=== PATIENT | female | born 1960 | race Caucasian/White ===

== ENCOUNTER 2022-05-22 11:16 | Outpatient (CLI) | payer OTHER, SELFPAY ==
[2022-05-22 21:33] LABS: Albumin* 4.1 g/dL (3.3-5.0); Chloride* 107 mmol/L (96-114)
[2022-05-22 21:34] LABS: Potassium* 4.3 mmol/L (3.6-5.1); Sodium* 138 mmol/L (135-149)
[2022-05-22 21:36] LABS: Alkaline Phosphatase* 73 U/L (40-150); Aspartate Amino Transferase* 25 U/L (12-35); Bilirubin Total* 0.4 mg/dL (0.1-1.5); Blood Urea Nitrogen* 11 mg/dL (7-30); Carbon Dioxide* 24 mmol/L (20-32); Cholesterol* 221 mg/dL (90-199); Creatinine* 0.8 mg/dL (0.5-1.5); Estimated Glomerular Filt Rate 83 ml/min; Glucose* 98 mg/dL (60-115); Total Protein* 6.6 g/dL (6.0-8.3)
[2022-05-22 21:37] LABS: Alanine Aminotransferase* 11 U/L (4-35); HDL Cholesterol* 54 mg/dL (>=50); LDL Cholesterol Calculated 145 mg/dL (<100); Triglycerides* 112 mg/dL (40-149)
[2022-05-22 21:52] LABS: Vitamin D 25 Hydroxy* 49 ng/mL (30-80)
== END 2022-05-22 11:17 | disposition home or self-care (01) ==
PROVIDERS: PCP Family Medicine; Visit Provider Family Medicine
DX: E78.00 Pure hypercholesterolemia, unspecified (principal); R53.83 Other fatigue; F41.9 Anxiety disorder, unspecified; L40.9 Psoriasis, unspecified; G35 Multiple sclerosis
CPT/HCPCS: 80053; 80061; 82306; 84443

== ENCOUNTER 2022-06-26 10:23 | Emergency (ER) | payer OTHER, SELFPAY ==
[2022-06-26] VITALS (19 sets, daily range): BP systolic 91–109; BP diastolic 55–74; PULSE 66–83; RESP 22; TEMP 36.8; O2SAT 84–99
[2022-06-26 11:20] LABS: Lactate* 1.9 mmol/L (0.5-1.9)
[2022-06-26] MEDS: 0.9 % SODIUM CHLORIDE 1000 ml 1,000 ML IV ×2 (11:28→12:42)
[2022-06-26 11:32] LABS: Basophils Percent Auto 0.3 % (0.0-3.0); Eosinophils Percent Auto 0.2 % (0.0-7.0); Hematocrit 43.7 % (33.0-51.0); Hemoglobin* 14.5 gm/dL (12.0-16.0); Immature Granulocytes Abs Auto 0.03 K/uL (0.00-0.30); Lymphocytes Percent Auto 4.8 % (20-44); Mean Corpuscular HGB Conc 33 gm/dL (32-36); Mean Corpuscular Hemoglobin 30 pg (26-34); Mean Corpuscular Volume 91 fL (80-100); Monocytes Percent Auto 0.7 % (0.0-11.0); Neutrophils Percent Auto 93.7 % (42.0-72.0); Platelet Count* 203 K/uL (140-440); RDW Coefficient of Variation % 13.2 % (11.5-15.5); White Blood Count* 11.43 K/uL (4.50-11.00)
[2022-06-26 11:37] LABS: Slide Review Reflex No
[2022-06-26 11:39] LABS: Chloride* 105 mmol/L (96-114)
[2022-06-26 11:39] LABS: Albumin* 4.4 g/dL (3.3-5.0)
[2022-06-26 11:40] LABS: Potassium* 3.7 mmol/L (3.6-5.1); Sodium* 138 mmol/L (135-149)
[2022-06-26 11:42] LABS: Alanine Aminotransferase* 12 U/L (4-35); Alkaline Phosphatase* 82 U/L (40-150); Aspartate Amino Transferase* 28 U/L (12-35); Bilirubin Direct* 0.2 mg/dL (0.0-0.5); Bilirubin Total* 0.7 mg/dL (0.1-1.5)
[2022-06-26 11:43] LABS: Blood Urea Nitrogen* 14 mg/dL (7-30); Carbon Dioxide* 25 mmol/L (20-32); Creatinine* 0.8 mg/dL (0.5-1.5); Estimated Glomerular Filt Rate 83 ml/min; Glucose* 111 mg/dL (60-115)
[2022-06-26 11:44] LABS: Calcium* 9.5 mg/dL (8.4-10.6)
[2022-06-26] MEDS: KETOROLAC 15 MG/ML inj IVP (12:30)
[2022-06-26] MEDS: ONDANSETRON 2 MG/ML inj 4 MG IVP (12:30)
--- NOTE | 2022-06-26 12:47 | ED_ITS ---
HPI - Abdominal Pain General Date Seen: 06/26/22 Chief Complaint: Unspecified Complaint, Adult Stated Complaint: Short of breath, muscle aches, fever Time Seen by Provider: 06/26/22 11:02 Source: patient Mode of arrival: ambulatory Limitations: no limitations History of Present Illness HPI narrative: Patient is a very nice 61-year-old female presents here with shakes, chills, and feeling unwell, she noted to the nurse that she had some shortness of breath although I do not notice that she does not tell me that. He does have some dysuria and frequency of urination also, some mild discomfort in her back. MD elicited complaint: abdominal pain and flank pain Pertinent past history: past UTI Onset (ago): hour(s) Pain Consistency: constant Location: L flank, R flank and suprapubic Severity: moderate Quality: aching and fullness Radiation: none Migration to: no migration Exacerbating factors: movement Relieving factors: nothing Associated symptoms: dysuria Treatments prior to arrival: other Related Data Home Medications Medication Instructions Recorded Confirmed budesonide 0.5 mg/2 mL suspension 0.5 mg inhalation QDAY 05/22/22 05/22/22 for nebulization Previous Rx's Medication Instructions Recorded alprazolam 0.25 mg tablet (Xanax) 0.25 mg PO .QHS PRN sleep #60 tabs 05/22/22 clobetasol 0.05 % scalp solution 1 applic topical QDAY 2 weeks #50 05/22/22 mL paroxetine HCl 30 mg tablet (Paxil) 30 mg PO QDAY #90 tabs 05/22/22 Allergies Allergy/AdvReac Type Severity Reaction Status Date / Time prochlorperazine Allergy Irritable Verified 06/26/22 14:50 Sulfa (Sulfonamide Allergy Verified 06/26/22 14:50 Antibiotics) Review of Systems Status of ROS Reports: 10 or more systems reviewed and unremarkable except as noted in History and below PFSH PFSH Medical History Psoriasis Social History Narrative: Smoker Smoking Status: Current every day smoker What tobacco products do you use: cigarettes Do you use any of these nicotine containing products: None Second hand tobacco smoke exposure: No How often do you have a drink containing alcohol: monthly or less How many standard drinks containing alcohol do you have on a typical day: 1 or 2 How often do you have six or more drinks on one occasion: Never AUDIT-C Alcohol total score: 1 Non-prescribed substance use: denies use Little interest or pleasure in doing things: several days Feeling down, depressed, or hopeless: several days Exam Narrative: Exam Narrative: Patient is seen with nurse present, her speaking to me normally she appears chilled, with the shaking, pupils equal round react to light oropharynx normal neck is supple chest clear heart sounds are normal her abdomen is soft there is no guarding pressure immediately she has mild CVA tenderness noted. No organomegaly, bowel sounds are normal, she moves all extremities independently well, no redness or rashes. Const: Vital Signs, click to edit/add: Vital Signs - 24 hr 06/26/22 10:48 06/26/22 11:48 06/26/22 11:49 Temperature 98.2 F Pulse Rate 73 73 Pulse Rate [Pulse Oximeter] 77 Respiratory Rate 22 Blood Pressure 109/56 L Blood Pressure [Le ft Upper Arm] 91/58 L Pulse Oximetry 97 96 [facility] 06/26/22 12:00 06/26/22 12:01 06/26/22 12:02 Temperature Pulse Rate 75 83 76 Pulse Rate [Pulse Oximeter] Respiratory Rate Blood Pressure 99/55 L Blood Pressure [Le ft Upper Arm] Pulse Oximetry 98 99 99 [facility] 06/26/22 12:15 06/26/22 12:16 06/26/22 12:31 Temperature Pulse Rate 80 76 79 Pulse Rate [Pulse Oximeter] Respiratory Rate Blood Pressure 98/65 108/61 Blood Pressure [Le ft Upper Arm] Pulse Oximetry 94 84 L 97 [facility] 06/26/22 12:32 06/26/22 12:47 06/26/22 12:48 Temperature Pulse Rate 74 71 73 Pulse Rate [Pulse Oximeter] Respiratory Rate Blood Pressure 99/57 L Blood Pressure [Le ft Upper Arm] Pulse Oximetry 98 95 95 [facility] 06/26/22 13:01 06/26/22 13:02 06/26/22 13:16 Temperature Pulse Rate 72 75 74 Pulse Rate [Pulse Oximeter] Respiratory Rate Blood Pressure 106/60 101/62 Blood Pressure [Le ft Upper Arm] Pulse Oximetry 96 94 95 Oxygen Delivery Me thod 06/26/22 13:17 06/26/22 13:30 06/26/22 13:34 Temperature Pulse Rate 77 66 71 Pulse Rate [Pulse Oximeter] Respiratory Rate Blood Pressure Blood Pressure [Le ft Upper Arm] Pulse Oximetry 98 95 94 Oxygen Delivery Me thod 06/26/22 17:00 Temperature Pulse Rate Pulse Rate [Pulse Oximeter] Respiratory Rate Blood Pressure Blood Pressure [Le ft Upper Arm] 106/74 Pulse Oximetry Oxygen Delivery Me thod Documenting provider has reviewed patient's vital signs: yes Course Course Hospital Course: Discussed with the patient, given the shake she was having, we will do a chest abdomen and pelvis, rule out any acute findings, causing her issues. This was read by Radiology is negative, I also viewed it did not see any acute findings. She did improve here with IV fluids, is feeling much improved. I wonder if there is an element of dehydration. She does tell me that she gets issues with sinusitis every few months, and he is requesting a prescription for Keflex which works well for her, as she notes that she does have that bad taste in the back of her throat. I do not think this is unreasonable, I will give her prescr iption for Keflex. Blood cultures and they grow positive we can call her. Vital Signs Vital signs: Initial Vital Signs Temperature 98.2 F 06/26/22 10:48 Temperature Source Oral 06/26/22 10:48 Pulse Rate 77 06/26/22 10:48 Pulse Rhythm 06/26/22 10:48 Respiratory Rate 22 06/26/22 10:48 Blood Pressure 91/58 L 06/26/22 10:48 Blood Pressure Mean 69 06/26/22 10:48 Blood Pressure Position Sitting 06/26/22 10:48 Pulse Oximetry 97 06/26/22 10:48 Oxygen Delivery Method 06/26/22 10:48 Vital Signs Temperature 98.2 F 06/26/22 10:48 Pulse Rate 77 06/26/22 10:48 Respiratory Rate 22 06/26/22 10:48 Blood Pressure 91/58 L 06/26/22 10:48 Pulse Oximetry 97 06/26/22 10:48 Oxygen Delivery Method 06/26/22 10:48 Temperature 98.2 F 06/26/22 10:48 Pulse Rate 71 06/26/22 13:34 Respiratory Rate 22 06/26/22 10:48 Blood Pressure 106/74 06/26/22 17:00 Pulse Oximetry 94 06/26/22 13:34 Oxygen Delivery Method 06/26/22 10:48 MDM - Abdominal Pain MDM Narrative Medical decision making narrative: During the evaluation of this patient I considered multiple differential diagnosis including life-threatening differentials which are appendicitis, aortic aneurysm, mesenteric ischemia, bowel perforation, ectopic , volvulus and bowel obstruction, other differential diagnosis include but are not limited to inflammatory bowel disease, cholecystitis, pancreatitis, hepatitis, gastritis, GERD, diverticulitis, peptic ulcer disease, pyelonephritis/UTI, renal colic/stone, pelvic inflammatory disease, cervicitis, endometritis, intrauterine , dysfunctional uterine bleeding, ovarian cyst/torsion, spontaneous as well as other etiologies Lab Data Labs: Lab Results 06/26/22 06/26/22 06/26/22 Range/Units 10:55 11:11 11:11 WBC 11.43 H (4.50-11.00) K/uL RBC 4.80 (4.00-5.20) m/uL Hgb 14.5 (12.0-16.0) gm/dL Hct 43.7 (33.0-51.0) % MCV 91 (80-100) fL MCH 30 (26-34) pg MCHC 33 (32-36) gm/dL RDW Coeff of Mauricio 13.2 (11.5-15.5) % Plt Count 203 (140-440) K/uL Neut % (Auto) 93.7 H (42.0-72.0) % Lymph % (Auto) 4.8 L (20-44) % [place] % (Auto) 0.7 (0.0-11.0) % Eos % (Auto) 0.2 (0.0-7.0) % Baso % (Auto) 0.3 (0.0-3.0) % Neut # (Auto) 10.70 H (1.7-7.0) K/uL Lymph # (Auto) 0.50 L (0.90-2.90) K/uL [place] # (Auto) 0.10 (0.00-0.90) K/UL Eos # (Auto) 0.00 (0.00-0.50) K/uL Baso # (Auto) 0.00 (0.00-0.30) K/uL Abs Immat Gran (auto) 0.03 (0.00-0.30) K/uL Sodium 138 (135-149) mmol/L Potassium 3.7 (3.6-5.1) mmol/L Chloride 105 (96-114) mmol/L Carbon Dioxide 25 (20-32) mmol/L BUN 14 (7-30) mg/dL Creatinine 0.8 (0.5-1.5) mg/dL Estimated GFR 83 ml/min Glucose 111 (60-115) mg/dL Lactate (0.5-1.9) mmol/L Calcium 9.5 (8.4-10.6) mg/dL Total Bilirubin (0.1-1.5) mg/dL Direct Bilirubin (0.0-0.5) mg/dL AST (12-35) U/L ALT (4-35) U/L Alkaline Phosphatase (40-150) U/L Troponin I (0.01-0.04) ng/mL Total Protein (6.0-8.3) g/dL Albumin (3.3-5.0) g/dL Urine Color (Yellow) Urine Appearance (Clear) Urine pH (5.0-8.5) Ur Specific [place] (1.000-1.030) Urine Protein (Negative) Urine Glucose (UA) (Negative) Urine Ketones (Negative) Urine Blood (Negative) Urine Nitrite (Negative) Urine Bilirubin (Negative) Urine Urobilinogen (0.2-1.0) Ur Leukocyte Esterase (Negative) Urine RBC (0-2) Urine WBC (0-5) Ur Squamous Epith Cells (None-Few) Urine Bacteria (None) SARS-CoV-2 (PCR) Cancelled Influenza Type A (PCR) Cancelled Influenza Type B (PCR) Cancelled RSV (PCR) (Negative) 06/26/22 06/26/22 06/26/22 Range/Units 11:11 11:11 11:22 WBC (4.50-11.00) K/uL RBC (4.00-5.20) m/uL Hgb (12.0-16.0) gm/dL Hct (33.0-51.0) % MCV (80-100) fL MCH (26-34) pg MCHC (32-36) gm/dL RDW Coeff of Mauricio (11.5-15.5) % Plt Count (140-440) K/uL Neut % (Auto) (42.0-72.0) % Lymph % (Auto) (20-44) % [place] % (Auto) (0.0-11.0) % Eos % (Auto) (0.0-7.0) % Baso % (Auto) (0.0-3.0) % Neut # (Auto) (1.7-7.0) K/uL Lymph # (Auto) (0.90-2.90) K/uL [place] # (Auto) (0.00-0.90) K/UL Eos # (Auto) (0.00-0.50) K/uL Baso # (Auto) (0.00-0.30) K/uL Abs Immat Gran (auto) (0.00-0.30) K/uL Sodium (135-149) mmol/L Potassium (3.6-5.1) mmol/L Chloride (96-114) mmol/L Carbon Dioxide (20-32) mmol/L BUN (7-30) mg/dL Creatinine (0.5-1.5) mg/dL Estimated GFR ml/min Glucose (60-115) mg/dL Lactate 1.9 (0.5-1.9) mmol/L Calcium (8.4-10.6) mg/dL Total Bilirubin 0.7 (0.1-1.5) mg/dL Direct Bilirubin 0.2 (0.0-0.5) mg/dL AST 28 (12-35) U/L ALT 12 (4-35) U/L Alkaline Phosphatase 82 (40-150) U/L Troponin I < 0.01 L (0.01-0.04) ng/mL Total Protein 7.0 (6.0-8.3) g/dL Albumin 4.4 (3.3-5.0) g/dL Urine Color (Yellow) Urine Appearance (Clear) Urine pH (5.0-8.5) Ur Specific [place] (1.000-1.030) Urine Protein (Negative) Urine Glucose (UA) (Negative) Urine Ketones (Negative) Urine Blood (Negative) Urine Nitrite (Negative) Urine Bilirubin (Negative) Urine Urobilinogen (0.2-1.0) Ur Leukocyte Esterase (Negative) Urine RBC (0-2) Urine WBC (0-5) Ur Squamous Epith Cells (None-Few) Urine Bacteria (None) SARS-CoV-2 (PCR) Influenza Type A (PCR) Influenza Type B (PCR) RSV (PCR) (Negative) 06/26/22 06/26/22 Range/Units 11:22 12:30 WBC (4.50-11.00) K/uL RBC (4.00-5.20) m/uL Hgb (12.0-16.0) gm/dL Hct (33.0-51.0) % MCV (80-100) fL MCH (26-34) pg MCHC (32-36) gm/dL RDW Coeff of Mauricio (11.5-15.5) % Plt Count (140-440) K/uL Neut % (Auto) (42.0-72.0) % Lymph % (Auto) (20-44) % [place] % (Auto) (0.0-11.0) % Eos % (Auto) (0.0-7.0) % Baso % (Auto) (0.0-3.0) % Neut # (Auto) (1.7-7.0) K/uL Lymph # (Auto) (0.90-2.90) K/uL [place] # (Auto) (0.00-0.90) K/UL Eos # (Auto) (0.00-0.50) K/uL Baso # (Auto) (0.00-0.30) K/uL Abs Immat Gran (auto) (0.00-0.30) K/uL Sodium (135-149) mmol/L Potassium (3.6-5.1) mmol/L Chloride (96-114) mmol/L Carbon Dioxide (20-32) mmol/L BUN (7-30) mg/dL Creatinine (0.5-1.5) mg/dL Estimated GFR ml/min Glucose (60-115) mg/dL Lactate (0.5-1.9) mmol/L Calcium (8.4-10.6) mg/dL Total Bilirubin (0.1-1.5) mg/dL Direct Bilirubin (0.0-0.5) mg/dL AST (12-35) U/L ALT (4-35) U/L Alkaline Phosphatase (40-150) U/L Troponin I (0.01-0.04) ng/mL Total Protein (6.0-8.3) g/dL Albumin (3.3-5.0) g/dL Urine Color Yellow (Yellow) Urine Appearance Clear (Clear) Urine pH 5.5 (5.0-8.5) Ur Specific [place] 1.025 (1.000-1.030) Urine Protein Negative (Negative) Urine Glucose (UA) Negative (Negative) Urine Ketones Negative (Negative) Urine Blood Negative (Negative) Urine Nitrite Negative (Negative) Urine Bilirubin Negative (Negative) Urine Urobilinogen 0.2 (0.2-1.0) Ur Leukocyte Esterase Negative (Negative) Urine RBC 0-2 (0-2) Urine WBC 0-2 (0-5) Ur Squamous Epith Cells Few (None-Few) Urine Bacteria Few A (None) SARS-CoV-2 (PCR) Negative SARS-CoV-2 Influenza Type A (PCR) Negative PCR FLU A Influenza Type B (PCR) Negative PCR FLU B RSV (PCR) Negative PCR RSV (Negative) Discharge Plan Discharge Clinical Impression: Acute dehydration, Sinusitis Patient Disposition: Home w/ Parent or Adult Condition: Improved Instructions: Dehydration (ED), Rhinosinusitis (DC) Additional Instructions: Home rest follow-up with ENT as needed, return here if increasing symptoms worsening. Increasing fever nausea vomiting abdominal pain. Prescriptions: No Action budesonide 0.5 mg/2 mL suspension for nebulization 0.5 mg inhalation QDAY paroxetine HCl [Paxil] 30 mg tablet 30 mg PO QDAY Qty: 90 2RF alprazolam [Xanax] 0.25 mg tablet 0.25 mg PO .QHS PRN (Reason: sleep) Qty: 60 1RF Rx Instructions: 1-2 tabs po QHS, PRN clobetasol 0.05 % solution 1 applic topical QDAY 14 Days Qty: 50 1RF Follow Up/Referrals: Max Maxwell MD [Primary Care Provider] - Stand Alone Forms: [facility] Info Instructions
[2022-06-26 13:00] LABS: Appearance Urine Clear (Clear); Bilirubin Urine Negative (Negative); Blood Urine Negative (Negative); Color Urine Yellow (Yellow); Glucose Urine Negative (Negative); Ketones Urine Negative (Negative); Leukocyte Esterase Urine Negative (Negative); Nitrite Urine Negative (Negative); Protein Urine Negative (Negative); Specific Gravity Urine 1.025 (1.000-1.030); Urobilinogen Urine 0.2 (0.2-1.0); pH Urine 5.5 (5.0-8.5)
[2022-06-26 13:14] LABS: Bacteria Urine Few; RBC Urine 0-2 (0-2); Squamous Epithelial Cell Urine Few (None-Few); WBC Urine 0-2 (0-5)
--- NOTE | 2022-06-26 13:36 | CRLHL7_ITS ---
For Patients: As a result of the Cures Act, medical imaging exams and procedure reports are released immediately into your electronic medical record. You may view this report before your referring provider. If you have questions, please contact your health care provider. INDICATION: Shortness of breath, muscle aches, fever. TECHNIQUE: Chest radiograph, 2 views. COMPARISON: None. FINDINGS: Cardiovascular and mediastinum: The heart size and vasculature are normal in caliber and appearance. Lungs and pleural space: Lungs are clear. No signs of infiltrate or mass. No signs of pleural effusion. No pneumothorax. Bones and soft tissues: Mild degenerative changes of the osseous structures. IMPRESSION: No acute cardiopulmonary abnormality. Dictated by Simon Ortiz MD @ 06/26/2022 2:21:42 PM (Electronically Signed)
--- NOTE | 2022-06-26 14:39 | CRLHL7_ITS ---
For Patients: As a result of the Century Cures Act, medical imaging exams and procedure reports are released immediately into your electronic medical record. You may view this report before your referring provider. If you have questions, please contact your health care provider. INDICATION: Back pain. Fever. Chills. COMPARISON: There are no prior chest CTs. Abdomen CT reviewed dated October 16, 2021. TECHNIQUE: CT examination of the chest, abdomen and pelvis was performed following the uneventful intravenous administration of 95 cc of Isovue 370. Thin section axial images were obtained from the thoracic inlet through the pubic symphysis. Oral contrast was not administered. Sagittal and coronal reformatted imaging was performed. The chest portion of the study was performed as a pulmonary arterial angiogram. Please note that all CT scans at this facility use dose modulation, iterative reconstruction, and/or weight-based dosing when appropriate to reduce radiation dose to as low as reasonably achievable. FINDINGS: CHEST: There is no mediastinal or hilar or mass. There is no pericardial effusion. The lungs show a few scattered nodules that are calcified consistent with granulomas. Minimal basilar atelectasis. No focal consolidation, infiltrate or mass. No pleural effusion or pneumothorax. AORTA AND PULMONARY ARTERY DISTRIBUTION: There is no indication of acute pulmonary embolus or thoracic aortic dissection. ABDOMEN AND PELVIS: LIVER/BILIARY SYSTEM:Hepatic steatosis. Scattered low-density lesions likely all cysts. The smaller lesions are strictly speaking indeterminate. Similar to the prior study. No biliary ductal dilatation. Normal appearing gallbladder ADRENALS: Normal KIDNEYS, URETERS and BLADDER:The kidneys appear normal. No visible mass, calculus or hydronephrosis. The ureters and bladder as visualized appear normal. SPLEEN:Normal appearance. PANCREAS: Appears normal. RETROPERITONEUM and MESENTERY: There is no mass, adenopathy or aortic aneurysm. Atherosclerotic vascular calcification GASTROINTESTINAL SYSTEM: Mildly thickened loops of small bowel especially jejunum. No indication of obstruction. This is usually inflammatory representing an enteritis. There is scattered diverticulosis but no diverticulitis. No large bowel obstruction. PELVIS: No mass, adenopathy or free fluid. OSSEOUS STRUCTURES and ABDOMINAL WALL: There is an age-appropriate appearance of the osseous structures.No destructive process of bone. OTHER: No free fluid or free air. IMPRESSION: 1. CHEST: Calcified granulomas. Minimal basilar atelectasis. No significant appearing lung findings. Normal pleural spaces. 2. AORTA AND PULMONARY ARTERY DISTRIBUTION: No evidence of aortic dissection and no indication of acute pulmonary embolus jejunum. No indication of obstruction. This probably represents an enteritis. Otherwise, no acute appearing findings in the abdomen and pelvis. 4. OSSEOUS STRUCTURES: Age-appropriate appearance. No specific visible cause for acute back pain Please note that all CT scans at this facility use dose modulation, iterative reconstruction, and/or weight-based dosing when appropriate to reduce radiation dose to as low as reasonably achievable. Dictated by Mahesh Crenshaw MD @ 06/26/2022 3:29:58 PM (Electronically Signed)
[2022-06-26 15:27] LABS: Troponin I* < 0.01 ng/mL (0.01-0.04)
[2022-06-26 16:24] LABS: PCR FLU A Negative PCR FLU A (Negative); PCR FLU B Negative PCR FLU B (Negative); PCR RSV Negative PCR RSV (Negative); SARS PCR* Negative SARS-CoV-2 (Negative)
--- NOTE | 2022-06-27 03:06 | ED.NURSE ---
call from lab, 10/17 pos blood culture bottle, cultures to follow. pt started on keflex, ok to wait for sensitivities at this point per Dr. Looney.
--- NOTE | 2022-06-27 14:50 | ED.NURSE ---
[facility] pharmacy called to verify MD name on Keflex rx
--- NOTE | 2022-06-28 08:32 | W.ED.CHARTNO ---
ED Chart Note Chart Note Details Date: 06/28/22 Details: I received at 8:00 a.m. this morning a blood culture report, the gene twice on Saturday, is growing Gram-negative rods, I left a message on her phone as no one picked up, and then called her contact that is listed, that she is still feeling sick, with fevers up to 104, I asked him to either call the ambulance or hat bring her here to the emergency room in [place] so we can reassess her, and get her on antibiotics. She is growing Gram-negative rods, which is most commonly E coli.
== END 2022-06-26 17:00 | disposition home or self-care (01) ==
PROVIDERS: Emergency Provider Family Medicine; PCP Family Medicine
DX: Z53.8 Procedure and treatment not carried out for other reasons (principal)
CPT/HCPCS: 99281; 36415; 71046; 71260; 74177; 80048; 80076; 81001; 83605; 84484; 85025; 87040; 87086; 87186; 87502; 87631; 87634; 87635; 99284; J1885; J2405; J7030; Q9967

== ENCOUNTER 2022-06-28 09:31 | Inpatient (IN) | payer OTHER, SELFPAY ==
[2022-06-28] VITALS (21 sets, daily range): BP systolic 88–104; BP diastolic 42–66; PULSE 56–71; RESP 18–20; TEMP 36.1–37.6; O2SAT 92–98; BMI 24.0
--- NOTE | 2022-06-28 10:01 | ED_ITS ---
HPI - Weakness General Time Seen by Provider: 10:01 Date Seen: 06/28/22 Chief complaint: Weakness Stated complaint: Positive blood cultures Time Seen by Provider: 06/28/22 09:33 Source: patient Mode of arrival: ambulatory Limitations: no limitations History of Present Illness HPI Narrative: Patient is a 62-year-old female who I saw 48 hours ago in the emergency room please see my previous note, we discharged her home, in her blood cultures grew Gram-negative rods, on flagging today. I called her house, left a message then called her contact, who brought her here to the emergency room to be seen. She continues to have diaphoresis, sweating, and temperatures up to 102.4. She describes some lower suprapubic discomfort, with this also and some just overall abdominal discomfort she says. She has had no diarrhea with this, she has had dysuria and frequency of urination. Interestingly her urinalysis was negative, when I saw her and grew mixed isabell. She tells me she has had a slight headache associated with this, some vomiting also. No sore throat, slight cough associated with this. But tells me she does smoke. She did has some neck discomfort but this is gone away in the last 24 hours. No history of any rash, no recent travel, no tick bites, or any other possible issues. No real past history of any urinary tract infection she does have a history of diverticulitis, we did scan her on her last visit and this did not show anything. MD Complaint: generalized weakness Onset (ago): day(s) Related Data Home Medications Medication Instructions Recorded Confirmed budesonide 0.5 mg/2 mL suspension 0.5 mg inhalation QDAY 05/22/22 05/22/22 for nebulization Previous Rx's Medication Instructions Recorded alprazolam 0.25 mg tablet (Xanax) 0.25 mg PO .QHS PRN sleep #60 tabs 05/22/22 clobetasol 0.05 % scalp solution 1 applic topical QDAY 2 weeks #50 05/22/22 mL paroxetine HCl 30 mg tablet (Paxil) 30 mg PO QDAY #90 tabs 05/22/22 Allergies Allergy/AdvReac Type Severity Reaction Status Date / Time prochlorperazine Allergy Irritable Verified 06/28/22 09:39 Sulfa (Sulfonamide Allergy Verified 06/28/22 09:39 Antibiotics) Review of Systems Status of ROS: Reports: 10 or more systems reviewed and unremarkable except as noted in History and below [facility] Medical History Psoriasis Social History Narrative: Smoker Smoking Status: Current every day smoker What tobacco products do you use: cigarettes Do you use any of these nicotine containing products: None Second hand tobacco smoke exposure: No How often do you have a drink containing alcohol: monthly or less How many standard drinks containing alcohol do you have on a typical day: 1 or 2 How often do you have six or more drinks on one occasion: Never AUDIT-C Alcohol total score: 1 Non-prescribed substance use: denies use Little interest or pleasure in doing things: several days Feeling down, depressed, or hopeless: several days service: No Exam Narrative: Exam Narrative: Patient is seen and assessed she is mentating normally she is nontoxic, appears a little bit sweaty, with normal vital signs. She is seen with my nurse drawing labs. Her pupils are equal round reactive to light there is no scleral icterus she tracks normally with absence of nystagmus pin, her TMs are normal, her oropharynx is normal, nasal mucosa is normal, her neck is supple full range of motion is elicited, with no meningismus. There is no lymphadenopathy anterior posterior chains of her neck, her JVP is flat her carotid upstrokes are equal, cranial nerves 3-12 are normal. Chest is good air entry bilaterally she has a couple small wheezes noted on the left greater than the right. There is no signs or spiral fei distress, no dullness to percussion, and no splinting. Easy respirations are noted. Heart sounds no clicks murmurs or gallops noted. S1-S2 are normal. Her abdomen, so some mild fullness and tenderness in her lower abdominal region left greater than right, and over the suprapubic area. No organomegaly is noted her bowel sounds are quiet, there is no peritoneal signs. She did have some CVA tenderness but she tells me that is from my cold hands. Extremities all appear normal, neurologically intact normal power in upper lower extremities, and proximal distal d[place] assessed and normal sensations normal, pulses are normal there is no edema, skin reveals no rashes. Const: Vital Signs, click to edit/add: Vital Signs - 24 hr 06/28/22 09:39 06/28/22 10:29 06/28/22 11:01 Temperature 96.9 F L Pulse Rate 68 Pulse Rate [Pulse Oximeter] 63 69 Respiratory Rate 18 20 Blood Pressure 90/42 L Blood Pressure [Ri ght Upper Arm] 104/45 L 103/56 L Pulse Oximetry 98 98 95 Oxygen Delivery Me thod Room Air Room Air 06/28/22 11:02 06/28/22 11:33 06/28/22 11:38 Temperature Pulse Rate 69 65 71 Pulse Rate [Pulse Oximeter] Respiratory Rate Blood Pressure 88/45 L Blood Pressure [Ri ght Upper Arm] Pulse Oximetry 95 94 96 Oxygen Delivery Me thod 06/28/22 11:40 Temperature Pulse Rate 71 Pulse Rate [Pulse Oximeter] Respiratory Rate Blood Pressure 91/53 L Blood Pressure [Ri ght Upper Arm] Pulse Oximetry 97 Oxygen Delivery Me thod Documenting provider has reviewed patient's vital signs: yes Course Course Hospital Course: I discussed the patient with the hospitalist Dr. Hensley, she agreed to med the hospital the diagnosis of positive blood cultures, sepsis, fevers chills, I suspect that this is a urosepsis type picture. Given the above presentation, I did review the previous trip to the ER, repeated the cultures, of her blood, and got a good midstream urine. Zosyn should give us adequate coverage, start with. To we get specific sensitivities. Vital Signs Vital signs: Initial Vital Signs Temperature 96.9 F L 06/28/22 09:39 Temperature Source Temporal Artery Scan 06/28/22 09:39 Pulse Rate 63 06/28/22 09:39 Pulse Rhythm 06/28/22 09:39 Respiratory Rate 18 06/28/22 09:39 Blood Pressure 104/45 L 06/28/22 09:39 Blood Pressure Mean 64 06/28/22 09:39 Pulse Oximetry 98 06/28/22 09:39 Oxygen Delivery Method 06/28/22 09:39 Vital Signs Temperature 96.9 F L 06/28/22 09:39 Pulse Rate 63 06/28/22 09:39 Respiratory Rate 18 06/28/22 09:39 Blood Pressure 104/45 L 06/28/22 09:39 Pulse Oximetry 98 06/28/22 09:39 Oxygen Delivery Method 06/28/22 09:39 Temperature 96.9 F L 06/28/22 09:39 Pulse Rate 71 06/28/22 11:40 Respiratory Rate 20 06/28/22 10:29 Blood Pressure 91/53 L 06/28/22 11:40 Pulse Oximetry 97 06/28/22 11:40 Oxygen Delivery Method 06/28/22 10:29 MDM - Weakness MDM Narrative Medical decision making narrative: Life-threatening differential diagnosis is include meningitis, encephalitis, pneumonia, intra-abdominal infection, bacteremia, other differential diagnosis include but are not limited to viral upper respiratory tract infection, strep, urinary tract infection, skin infection, osteomyelitis, influenza, fungal infections, diskitis, epidural abscess, or fever of unknown origin. Given the above findings in the setting of a positive blood culture growing Gram-negative rods we will do further blood cultures I will do labs give her some fluids give her some pain medication nausea medication and start her on Zosyn which is good broad-spectrum coverage for likely the cause which is E coli. I did explain to her that we keep people in hospital for this. I will also do a chest x-ray but I will hold off on repeating her CT at this point. Medical Records Attestation: I reviewed the patient's medical records. Lab Data Attestation: I reviewed the patient's lab results. Labs: Lab Results 06/28/22 06/28/22 06/28/22 Range/Units 09:50 10:15 10:15 WBC 6.82 (4.50-11.00) K/uL RBC 4.42 (4.00-5.20) m/uL Hgb 13.2 (12.0-16.0) gm/dL Hct 40.5 (33.0-51.0) % MCV 92 (80-100) fL MCH 30 (26-34) pg MCHC 33 (32-36) gm/dL RDW Coeff of Mauricio 13.2 (11.5-15.5) % Plt Count 128 L (140-440) K/uL Neut % (Auto) 79.4 H (42.0-72.0) % Lymph % (Auto) 7.5 L (20-44) % [place] % (Auto) 9.4 (0.0-11.0) % Eos % (Auto) 3.2 (0.0-7.0) % Baso % (Auto) 0.4 (0.0-3.0) % Neut # (Auto) 5.40 (1.7-7.0) K/uL Lymph # (Auto) 0.50 L (0.90-2.90) K/uL [place] # (Auto) 0.60 (0.00-0.90) K/UL Eos # (Auto) 0.22 (0.00-0.50) K/uL Baso # (Auto) 0.03 (0.00-0.30) K/uL Abs Immat Gran (auto) 0.01 (0.00-0.30) K/uL Sodium 137 (135-149) mmol/L Potassium 3.6 (3.6-5.1) mmol/L Chloride 109 (96-114) mmol/L Carbon Dioxide 21 (20-32) mmol/L BUN 7 (7-30) mg/dL Creatinine 0.7 (0.5-1.5) mg/dL Estimated Creat Clear 49.72 Estimated GFR 97 ml/min Glucose 102 (60-115) mg/dL Lactate (0.5-1.9) mmol/L Calcium 9.4 (8.4-10.6) mg/dL Total Bilirubin 0.5 (0.1-1.5) mg/dL Direct Bilirubin 0.4 (0.0-0.5) mg/dL AST 125 H (12-35) U/L ALT 115 H (4-35) U/L Alkaline Phosphatase 134 (40-150) U/L C-Reactive Protein 7.5 H (0.5-1.0) mg/dL Total Protein 6.3 (6.0-8.3) g/dL Albumin 3.8 (3.3-5.0) g/dL Urine Color (Yellow) Urine Appearance (Clear) Urine pH (5.0-8.5) Ur Specific [place] (1.000-1.030) Urine Protein (Negative) Urine Glucose (UA) (Negative) Urine Ketones (Negative) Urine Blood (Negative) Urine Nitrite (Negative) Urine Bilirubin (Negative) Urine Urobilinogen (0.2-1.0) Ur Leukocyte Esterase (Negative) Urine RBC (0-2) Urine WBC (0-5) Ur Squamous Epith Cells (None-Few) Urine Bacteria (None) SARS-CoV-2 (PCR) Negative SARS-CoV-2 (Negative) Influenza Type A (PCR) Negative PCR FLU A (Negative) Influenza Type B (PCR) Negative PCR FLU B (Negative) 06/28/22 06/28/22 Range/Units 10:15 10:45 WBC (4.50-11.00) K/uL RBC (4.00-5.20) m/uL Hgb (12.0-16.0) gm/dL Hct (33.0-51.0) % MCV (80-100) fL MCH (26-34) pg MCHC (32-36) gm/dL RDW Coeff of Mauricio (11.5-15.5) % Plt Count (140-440) K/uL Neut % (Auto) (42.0-72.0) % Lymph % (Auto) (20-44) % [place] % (Auto) (0.0-11.0) % Eos % (Auto) (0.0-7.0) % Baso % (Auto) (0.0-3.0) % Neut # (Auto) (1.7-7.0) K/uL Lymph # (Auto) (0.90-2.90) K/uL [place] # (Auto) (0.00-0.90) K/UL Eos # (Auto) (0.00-0.50) K/uL Baso # (Auto) (0.00-0.30) K/uL Abs Immat Gran (auto) (0.00-0.30) K/uL Sodium (135-149) mmol/L Potassium (3.6-5.1) mmol/L Chloride (96-114) mmol/L Carbon Dioxide (20-32) mmol/L BUN (7-30) mg/dL Creatinine (0.5-1.5) mg/dL Estimated Creat Clear Estimated GFR ml/min Glucose (60-115) mg/dL Lactate 1.7 (0.5-1.9) mmol/L Calcium (8.4-10.6) mg/dL Total Bilirubin (0.1-1.5) mg/dL Direct Bilirubin (0.0-0.5) mg/dL AST (12-35) U/L ALT (4-35) U/L Alkaline Phosphatase (40-150) U/L C-Reactive Protein (0.5-1.0) mg/dL Total Protein (6.0-8.3) g/dL Albumin (3.3-5.0) g/dL Urine Color Yellow (Yellow) Urine Appearance Clear (Clear) Urine pH 5.5 (5.0-8.5) Ur Specific [place] 1.015 (1.000-1.030) Urine Protein Trace A (Negative) Urine Glucose (UA) Negative (Negative) Urine Ketones Negative (Negative) Urine Blood 2+ A (Negative) Urine Nitrite Negative (Negative) Urine Bilirubin Negative (Negative) Urine Urobilinogen 2.0 A (0.2-1.0) Ur Leukocyte Esterase Negative (Negative) Urine RBC 0-2 (0-2) Urine WBC 2-5 (0-5) Ur Squamous Epith Cells None (None-Few) Urine Bacteria Few A (None) SARS-CoV-2 (PCR) (Negative) Influenza Type A (PCR) (Negative) Influenza Type B (PCR) (Negative) Discharge Plan Discharge Clinical Impression: Fever, Bacteremia, Blood bacterial culture positive Patient Disposition: Admitted As Inpatient Prescriptions: No Action budesonide 0.5 mg/2 mL suspension for nebulization 0.5 mg inhalation QDAY paroxetine HCl [Paxil] 30 mg tablet 30 mg PO QDAY Qty: 90 2RF alprazolam [Xanax] 0.25 mg tablet 0.25 mg PO .QHS PRN (Reason: sleep) Qty: 60 1RF Rx Instructions: 1-2 tabs po QHS, PRN clobetasol 0.05 % solution 1 applic topical QDAY 14 Days Qty: 50 1RF Follow Up/Referrals: Max Maxwell MD [Primary Care Provider] -
--- NOTE | 2022-06-28 10:07 | CRLHL7_ITS ---
For Patients: As a result of the Century Cures Act, medical imaging exams and procedure reports are released immediately into your electronic medical record. You may view this report before your referring provider. If you have questions, please contact your health care provider. INDICATION: Cough COMPARISON: 06/26/2022 TECHNIQUE: PA and lateral views of the chest were acquired FINDINGS: TUBES AND LINES: None. HEART AND MEDIASTINUM: The heart size is normal. The mediastinal contour appears normal for patient age. LUNGS AND PLEURAL SPACES: The lungs appear normal.The pleural spaces are unremarkable. OSSEOUS STRUCTURES: Age-appropriate appearance. No acute focal finding. IMPRESSION: No evidence of active pulmonary disease. Dictated by Mahesh Crenshaw MD @ 06/28/2022 10:54:57 AM (Electronically Signed)
[2022-06-28] MEDS: 0.9 % SODIUM CHLORIDE 1000 ml 1,000 ML IV ×2 (10:21→12:19)
[2022-06-28] MEDS: ACETAMINOPHEN 325 MG TABLET 650 MG PO (10:21)
[2022-06-28] MEDS: ONDANSETRON 2 MG/ML inj 4 MG IVP ×2 (10:22→19:23)
[2022-06-28 10:23] LABS: Lactate* 1.7 mmol/L (0.5-1.9)
[2022-06-28 10:24] LABS: Basophils Absolute Auto 0.03 K/uL (0.00-0.30); Basophils Percent Auto 0.4 % (0.0-3.0); Eosinophils Absolute Auto 0.22 K/uL (0.00-0.50); Eosinophils Percent Auto 3.2 % (0.0-7.0); Hematocrit 40.5 % (33.0-51.0); Hemoglobin* 13.2 gm/dL (12.0-16.0); Immature Granulocytes Abs Auto 0.01 K/uL (0.00-0.30); Lymphocytes Percent Auto 7.5 % (20-44); Mean Corpuscular HGB Conc 33 gm/dL (32-36); Mean Corpuscular Hemoglobin 30 pg (26-34); Mean Corpuscular Volume 92 fL (80-100); Monocytes Percent Auto 9.4 % (0.0-11.0); Neutrophils Percent Auto 79.4 % (42.0-72.0); Platelet Count* 128 K/uL (140-440); RDW Coefficient of Variation % 13.2 % (11.5-15.5); Red Blood Count 4.42 m/uL (4.00-5.20); White Blood Count* 6.82 K/uL (4.50-11.00)
[2022-06-28] MEDS: HYDROmorphone 0.5 mg/0.5 ml inj IVP ×2 (10:25→16:27)
[2022-06-28 10:29] LABS: Slide Review Reflex No
[2022-06-28 10:46] LABS: Chloride* 109 mmol/L (96-114)
[2022-06-28 10:47] LABS: Albumin* 3.8 g/dL (3.3-5.0); Potassium* 3.6 mmol/L (3.6-5.1); Sodium* 137 mmol/L (135-149)
[2022-06-28 10:49] LABS: Creatinine* 0.7 mg/dL (0.5-1.5); Est. Creatinine Clearance* 49.72; Estimated Glomerular Filt Rate 97 ml/min
[2022-06-28 10:50] LABS: Alanine Aminotransferase* 115 U/L (4-35); Alkaline Phosphatase* 134 U/L (40-150); Aspartate Amino Transferase* 125 U/L (12-35); Bilirubin Direct* 0.4 mg/dL (0.0-0.5); Bilirubin Total* 0.5 mg/dL (0.1-1.5); Blood Urea Nitrogen* 7 mg/dL (7-30); Calcium* 9.4 mg/dL (8.4-10.6); Carbon Dioxide* 21 mmol/L (20-32); Glucose* 102 mg/dL (60-115); Total Protein* 6.3 g/dL (6.0-8.3)
[2022-06-28 10:53] LABS: C Reactive Protein* 7.5 mg/dL (0.5-1.0)
[2022-06-28 10:54] LABS: PCR FLU A Negative PCR FLU A (Negative); PCR FLU B Negative PCR FLU B (Negative); SARS PCR* Negative SARS-CoV-2 (Negative)
[2022-06-28 10:54] LABS: Appearance Urine Clear (Clear); Bilirubin Urine Negative (Negative); Blood Urine 2+ (Negative); Color Urine Yellow (Yellow); Glucose Urine Negative (Negative); Ketones Urine Negative (Negative); Leukocyte Esterase Urine Negative (Negative); Nitrite Urine Negative (Negative); Protein Urine Trace (Negative); Specific Gravity Urine 1.015 (1.000-1.030); pH Urine 5.5 (5.0-8.5)
[2022-06-28] MEDS: PIPERACILLIN/TAZOBACTAM 3.375 GM in 0.9 % SODIUM CHLORIDE Mini-bag 100 ML IVPB ×3 (10:55→23:58)
[2022-06-28 11:04] LABS: Bacteria Urine Few; RBC Urine 0-2 (0-2)
--- NOTE | 2022-06-28 13:06 | ED.NURSE ---
Report to NERY Sevilla
[2022-06-28 13:11] LABS: Gamma Glutamyl Transpeptidase* 112 U/L (8-55)
[2022-06-28 13:29] LABS: Procalcitonin* 2.56 ng/mL (<0.50)
[2022-06-28] MEDS: 0.9 % SODIUM CHLORIDE 1000 ml 1,000 ML 125 ML IV (14:20)
[2022-06-28] MEDS: ACETAMINOPHEN 325 MG TABLET PO ×2 (14:25→21:06)
[2022-06-28] MEDS: PANTOPRAZOLE SODIUM 40 MG INJ IVP (14:25)
[2022-06-28] MEDS: LACTATED RINGERS 1000 ML 1,000 ML 500 ML IV (14:38)
[2022-06-28] MEDS: KETOROLAC 30 MG/ML inj IVP (16:05)
--- NOTE | 2022-06-28 16:06 | P.IMHP_ITS ---
Hospitalist- H&P: HPI History of Present Illness Date Seen: 06/28/22 Chief complaint: Positive blood cultures Narrative: ADMISSION HISTORY AND PHYSICAL - HOSPITALIST Chief Complaint: They called and told me I had positive blood cultures. I have had fever and achiness. HPI: 62-year-old with a history of tobacco dependence, MS presents after being called back to the ED by ED staff. She was seen 06/26 with fever, overall generally unwell, possible symptoms of a UTI. Workup was unrevealing. However, they did draw blood cultures. Her urine culture ultimately grew mixed isabell. Her blood culture, at least 1 bottle, is growing Gram-negative bacteria. She was given an antibiotic but never picked it up. She said she has continued to feel poorly. She reports fevers to 102. Overall body aches. Some mild nausea. Nobody else has been sick. There is no recent tick bite. No recent travel. No diarrhea. No rash. I've updated the PFSH, medications and allergies in the [place] tabs. INVESTIGATIONS: LABS/MICRO/ECG/IMAGING CBC today actually looks better than the CBC on the . Her white blood cell count has downtrended. However, her platelet count is 128. And that was 203. Complete metabolic panel is reassuring. With the exception of new LFT elevation. On the her LFTs including direct bilirubin, AST and ALT and alk-phos were all normal. Today the GGT which was not checked 2 days ago in the AST and ALT were not elevated. C reactive protein is 7.5 Procalcitonin 2.56 2 urines the last 2 days are negative for nitrate and leukocyte esterase. A few more white blood cells are noted today. Culture from 2 days ago shows mixed isabell. New culture today. 1. CHEST: Calcified granulomas. Minimal basilar atelectasis. No significant appearing lung findings. Normal pleural spaces. 2. AORTA AND PULMONARY ARTERY DISTRIBUTION: No evidence of aortic dissection and no indication of acute pulmonary embolus. Mildly thickened loops of small bowel especially jejunum. No indication of obstruction. This probably represents an enteritis. Otherwise, no acute appearing findings in the abdomen and pelvis. 4. OSSEOUS STRUCTURES: Age-appropriate appearance. No specific visible cause for acute back pain CXR Negative today. REVIEW OF SYSTEMS: 12-point ROS completed with patient and negative unless otherwise stated in HPI or below. PHYSICAL EXAM: CODE STATUS: FULL CODE CONSTITUTIONAL: Conversive, good historian. A/O. Knows setting and context. DOES NOT LOOK PARTICULARLY ILL. Mildly anxious. VITAL SIGNS: see record. HEENT: Normocephalic, atraumatic. PERRL, EOMI, conjunctivae pink, no scleral icterus. Ears and nose externally normal. Pharynx normal. NECK: No JVD. No carotid bruit, no thyromegaly, no adenopathy. CHEST: Clear to auscultation bilaterally HEART: S1 and S2 normal. No harsh murmurs. Edema MUSCULOSKELETAL: No gross joint deformity or swelling. NEURO: Cranial nerves intact. Grossly intact. No asymmetric findings. SKIN: No rashes, petechiae, concerning changes PSYCHIATRIC: Euthymic. ADMIT TO MEDSURG: FLOOR CARE DVT: SCDs and ambulation GI: PO intake, 1 dose PPI Time spent: 70 minutes examining patient, conferring with family and patient, care staff, developing care plan [facility] Medical History Anxiety disorder, unspecified Bacteremia due to Gram-negative bacteria Multiple sclerosis Tobacco dependence Surgical History History of appendectomy History of sinus surgery Social History Narrative: Smoker Highest level of school completed/degree received: high school graduate Smoking Status: Current every day smoker What tobacco products do you use: cigarettes Do you use any of these nicotine containing products: None Second hand tobacco smoke exposure: No How often do you have a drink containing alcohol: monthly or less Alcohol type: hard liquor How many standard drinks containing alcohol do you have on a typical day: 1 or 2 How often do you have six or more drinks on one occasion: Never AUDIT-C Alcohol total score: 1 Non-prescribed substance use: denies use Caffeine: Yes Little interest or pleasure in doing things: several days Feeling down, depressed, or hopeless: several days service: No Meds Home Medications and Allergies Home Medications Medication Instructions Recorded Confirmed Type alprazolam 0.25 mg tablet (Xanax) 0.25 - 0.5 mg PO HS PRN sleep 06/28/22 06/28/22 History Allergies Allergy/AdvReac Type Severity Reaction Status Date / Time prochlorperazine Allergy Irritable Verified 06/28/22 09:39 Sulfa (Sulfonamide Allergy Verified 06/28/22 09:39 Antibiotics) Exam Const: Vital Signs, click to edit/add: Vital Signs - 24 hr 06/28/22 09:39 06/28/22 10:29 06/28/22 11:01 Temperature 96.9 F L Pulse Rate 68 Pulse Rate [Pulse Oximeter] 63 69 Pulse Rate [Right Pulse Oximeter] Respiratory Rate 18 20 Blood Pressure 90/42 L Blood Pressure [Ri ght Arm] Blood Pressure [Ri ght Upper Arm] 104/45 L 103/56 L Pulse Oximetry 98 98 [facility] 06/28/22 11:02 06/28/22 11:33 06/28/22 11:38 Temperature Pulse Rate 69 65 71 Pulse Rate [Pulse Oximeter] Pulse Rate [Right Pulse Oximeter] Respiratory Rate Blood Pressure 88/45 L Blood Pressure [Ri ght Arm] Blood Pressure [Ri ght Upper Arm] Pulse Oximetry 95 94 [facility] 06/[facility]/22 11:40 06/28/22 11:41 06/28/22 12:01 Temperature Pulse Rate 71 67 63 Pulse Rate [Pulse Oximeter] Pulse Rate [Right Pulse Oximeter] Respiratory Rate Blood Pressure 91/53 L 94/47 L Blood Pressure [Ri ght Arm] Blood Pressure [Ri ght Upper Arm] Pulse Oximetry 97 94 [facility] 06/28/22 12:02 06/28/22 12:18 06/28/22 12:32 Temperature Pulse Rate 63 63 62 Pulse Rate [Pulse Oximeter] Pulse Rate [Right Pulse Oximeter] Respiratory Rate Blood Pressure 91/57 L Blood Pressure [Ri ght Arm] Blood Pressure [Ri ght Upper Arm] Pulse Oximetry 93 93 92 [facility] 06/28/22 12:33 06/28/22 13:02 06/28/22 13:03 Temperature Pulse Rate 63 60 60 Pulse Rate [Pulse Oximeter] Pulse Rate [Right Pulse Oximeter] Respiratory Rate Blood Pressure 90/55 L Blood Pressure [Ri ght Arm] Blood Pressure [Ri ght Upper Arm] Pulse Oximetry 92 92 93 [facility] 06/28/22 13:17 06/28/22 14:18 Temperature 98.9 F Pulse Rate Pulse Rate [Pulse Oximeter] Pulse Rate [Right Pulse Oximeter] 63 Respiratory Rate 18 18 Blood Pressure Blood Pressure [Ri ght Arm] 91/59 L Blood Pressure [Ri ght Upper Arm] Pulse Oximetry 95 95 Oxygen Delivery Me thod Room Air Room Air Hospitalist - H&P: Result Labs Labs: Short CBC 06/28/22 Range/Units 10:15 WBC 6.82 (4.50-11.00) K/uL Hgb 13.2 (12.0-16.0) gm/dL Hct 40.5 (33.0-51.0) % Plt Count 128 L (140-440) K/uL BMP 06/28/22 10:15 Sodium 137 Potassium 3.6 Chloride 109 Carbon Dioxide 21 BUN 7 Creatinine 0.7 Glucose 102 Calcium 9.4 Liver Function 06/28/22 06/28/22 Range/Units 10:15 10:15 Total Bilirubin 0.5 (0.1-1.5) mg/dL Direct Bilirubin 0.4 (0.0-0.5) mg/dL GGT 112 H (8-55) U/L AST 125 H (12-35) U/L ALT 115 H (4-35) U/L Alkaline Phosphatase 134 (40-150) U/L Albumin 3.8 (3.3-5.0) g/dL Urine 06/28/22 Range/Units 10:45 Urine Color Yellow (Yellow) Urine Appearance Clear (Clear) Urine pH 5.5 (5.0-8.5) Ur Specific [place] 1.015 (1.000-1.030) Urine Protein Trace A (Negative) Urine Glucose (UA) Negative (Negative) Assessment and Plan Assessment and plan (1) Bacteremia due to Gram-negative bacteria: Problem comment: Likely from UTI. Zosyn q.6 until we can narrow this broad-spectrum antibiotic. Likely urinary bladder source. Continue IV hydration and monitoring. Status: Acute (2) Anxiety disorder, unspecified: Problem comment: Fluoxetine. P.r.n. Ativan. Status: Acute (3) Multiple sclerosis: Problem comment: Diagnosed many years ago. Previously was on disease modifying medications. Has been off these medications for several years. Last saw neurologist 1-2 years ago. Status: Acute (4) Tobacco dependence: Problem comment: Nicotine support offered. Status: Acute
[2022-06-28] MEDS: LORazepam 0.5 MG TABLET PO (16:15)
[2022-06-28] MEDS: NICOTINE 21 MG PATCH 1 PATCH TRANSDERMA (17:09)
--- NOTE | 2022-06-28 22:26 | PC.NURSE ---
Shift Note [id number]: Pt restless, anxious, and tearful on initial assessment. Requesting nicotine replacement and c/o increasing low belly cramping/aches as well as severe low back pain 05/23. PRN 0.5mg Ativan PO and 0.5mg Dilaudid IVP given as well as 30mg Toradol IVP. Pt given Nicotine patch and inhaler and appears much more comfortable at this time. BP's soft, 90's/50's. Pt denies any dizziness/lightheadedness with position change and tolerates SBA to the BR quite well. Temps slightly elevated, 99.6 and HR has remained in 50's-60's range. Zosyn infused without difficulty and maintenance fluids currently running. Pt encouraged to increase oral fluid intake, she is currently drinking cranberry juice.
[2022-06-29] VITALS (8 sets, daily range): BP systolic 101–126; BP diastolic 58–78; PULSE 50–86; RESP 16–18; TEMP 36.3–37.2; O2SAT 92–97
[2022-06-29] MEDS: HYDROmorphone 0.5 mg/0.5 ml inj IVP (02:08)
[2022-06-29] MEDS: LORazepam 0.5 MG TABLET PO ×2 (02:09→16:21)
[2022-06-29] MEDS: PIPERACILLIN/TAZOBACTAM 3.375 GM in 0.9 % SODIUM CHLORIDE Mini-bag 100 ML IVPB (05:09)
--- NOTE | 2022-06-29 06:08 | PC.NURSE ---
Shift note -: Pt alert, has periods of anxiousness, able to redirect w/ education on POC and disease process. Continues to c/o intermittent LBP, lower abd pain, and burning w/ urination, Dilaudid given x1 w/ relief as pt relaxed and appeared able to sleep.
[2022-06-29] MEDS: 0.9 % SODIUM CHLORIDE 1000 ml 1,000 ML 125 ML IV ×3 (09:41→17:43)
[2022-06-29] MEDS: CIPROFLOXACIN 500 MG TABLET PO ×2 (09:42→20:45)
[2022-06-29 10:29] LABS: Ionized Calcium* 1.27 mmol/L (1.11-1.30); Lactate* 0.7 mmol/L (0.5-1.9)
[2022-06-29 10:37] LABS: Hematocrit 37.9 % (33.0-51.0); Hemoglobin* 12.3 gm/dL (12.0-16.0); Mean Corpuscular HGB Conc 33 gm/dL (32-36); Mean Corpuscular Hemoglobin 30 pg (26-34); Mean Corpuscular Volume 92 fL (80-100); Platelet Count* 141 K/uL (140-440); Red Blood Count 4.11 m/uL (4.00-5.20)
[2022-06-29 10:40] LABS: Slide Review Reflex No
[2022-06-29 10:53] LABS: Albumin* 3.1 g/dL (3.3-5.0); Chloride* 112 mmol/L (96-114); Sodium* 140 mmol/L (135-149)
[2022-06-29 10:54] LABS: Potassium* 4.1 mmol/L (3.6-5.1)
[2022-06-29 10:55] LABS: Creatinine* 0.8 mg/dL (0.5-1.5); Est. Creatinine Clearance* 49.72; Estimated Glomerular Filt Rate 83 ml/min
[2022-06-29 10:56] LABS: Alkaline Phosphatase* 167 U/L (40-150); Aspartate Amino Transferase* 215 U/L (12-35); Bilirubin Total* 0.6 mg/dL (0.1-1.5); Blood Urea Nitrogen* 6 mg/dL (7-30); Carbon Dioxide* 22 mmol/L (20-32); Gamma Glutamyl Transpeptidase* 241 U/L (8-55); Glucose* 100 mg/dL (60-115); Lipase* 65 U/L (23-300); Total Protein* 5.4 g/dL (6.0-8.3)
[2022-06-29 10:57] LABS: Alanine Aminotransferase* 196 U/L (4-35); Magnesium* 1.7 mg/dL (1.5-2.6)
[2022-06-29 10:59] LABS: C Reactive Protein* 5.1 mg/dL (0.5-1.0)
--- NOTE | 2022-06-29 11:03 | CRLHL7_ITS ---
For Patients: As a result of the Century Cures Act, medical imaging exams and procedure reports are released immediately into your electronic medical record. You may view this report before your referring provider. If you have questions, please contact your health care provider. INDICATION: Elevated LFTs, bacteremia. TECHNIQUE: Ultrasound abdomen limited. Sonographic images of the right upper quadrant were obtained using figueroa-scale and color Doppler images. COMPARISON: None. FINDINGS: Liver: Normal in size and echotexture. No suspicious masses. No intrahepatic biliary dilation. Simple appearing cyst measures 1.7 x 1.5 x 2.5 cm. Gallbladder: No stones or sludge. The gallbladder wall appears mildly thickened. Common bile duct: 7 mm. Pancreas: Unremarkable. Right kidney: Normal in size. Normal echotexture and cortex. No suspicious masses, stones, or hydronephrosis. Vasculature: Proximal abdominal aorta and IVC are unremarkable. IMPRESSION: Mild gallbladder wall thickening of uncertain etiology, possibly partially contracted. No gallstones or other sonographic abnormality. Dictated by Neftaly Huang MD @ 06/29/2022 12:37:55 PM (Electronically Signed)
[2022-06-29 11:13] LABS: Procalcitonin* 1.49 ng/mL (<0.50)
--- NOTE | 2022-06-29 12:27 | PM.IMPN1 ---
Progress Note: A&P Assessment and plan (1) Bacteremia due to Gram-negative bacteria: Problem details: Likely from UTI. cipro sensitive; changing from zosyn. fluids d/c. hydromorphone d/c. Status: Acute (2) Anxiety disorder, unspecified: Problem details: Fluoxetine. P.r.n. Ativan. Status: Acute (3) Multiple sclerosis: Problem details: Diagnosed many years ago. Previously was on disease modifying medications. Has been off these medications for several years. Last saw neurologist 1-2 years ago. Status: Acute (4) Tobacco dependence: Problem details: Nicotine support offered. Status: Acute (5) Transaminitis: Problem details: ruq u/s this morning. following. Status: Acute Subjective Date Seen: 06/29/22 Interval history: Daily Progress Note - Hospital Medicine Day #: 2 CC: E coli bacteremia, LFT elevation, multiple sclerosis, OVERNIGHT UPDATES FROM STAFF & MED, LAB, IMAGING UPDATES Weston describes not feeling much better today. She states that she had some acute shortness of breath last night, she said it was difficult to lie flat. No audible wheezing. This typically does not happen to her. No known CPAP or oxygen requirement or heart disease. No fevers overnight. Appetite has not been present at all. Hemodynamically her blood pressure looks a lot better today. She is not tachycardic. CBC reflects a mild leukopenia at 4.3 Hemoglobin and hematocrit are stable. Platelets look improved. Basic metabolic panel, renal function are all reassuring. Her LFTs are continuing to climb. On admission they were normal. Her GGT is up to 241, AST and ALT are 215 and 196. Alk-phos is not elevated at 167. Her CRP is down trending Procalcitonin has down trended nicely. BNP pending Review of Systems: See subjective Cardiac: No new chest pain/pressure/palpitations. Respiratory: no new dyspnea. GI: No abdominal bloating Objective: looks tired; aware and working her cell phone to chat with her daughter on speaker. asks appropriate questions. Vitals: see above Lungs: Clear. Cardiac: S1S2. legs: no edema abdomen: mild cramping with u/s probe (abd u/s performed by tech while i was in room), mild suprapubic pressure. not septic appearing. Disposition/Potential discharge - Likely to return to previous living situation. Total time is 35 minutes with greater than 50% spent in counseling and coordination of care. Exam Const: Vital Signs, click to edit/add: Vital Signs - 24 hr 06/28/22 12:32 06/28/22 12:33 06/28/22 13:02 Temperature Pulse Rate 62 63 60 Pulse Rate [Right Pulse Oximeter] Respiratory Rate Blood Pressure 91/57 L 90/55 L Blood Pressure [Ri ght Arm] Pulse Oximetry 92 92 92 Oxygen Delivery Me thod 06/28/22 13:03 06/28/22 13:17 06/28/22 14:18 Temperature 98.9 F Pulse Rate 60 Pulse Rate [Right Pulse Oximeter] 63 Respiratory Rate 18 18 Blood Pressure Blood Pressure [Ri ght Arm] 91/59 L Pulse Oximetry 93 95 95 Oxygen Delivery Me thod Room Air Room Air 06/28/22 15:00 06/28/22 15:00 06/28/22 21:06 Temperature 99.6 F 97.4 F L Pulse Rate Pulse Rate [Right Pulse Oximeter] 61 61 Respiratory Rate 18 18 Blood Pressure Blood Pressure [Ri ght Arm] 91/53 L Pulse Oximetry 93 Oxygen Delivery Me thod Room Air 06/28/22 19:00 06/28/22 23:00 06/28/22 23:00 Temperature 99 F 98.6 F Pulse Rate Pulse Rate [Right Pulse Oximeter] 57 L 56 L 56 L Respiratory Rate 18 18 18 Blood Pressure Blood Pressure [Ri ght Arm] 99/56 L 90/66 Pulse Oximetry 96 95 Oxygen Delivery Me thod Room Air Room Air 06/29/22 03:00 06/29/22 08:17 06/29/22 08:20 Temperature 98.5 F 98.7 F Pulse Rate Pulse Rate [Right Pulse Oximeter] 55 L 59 L 59 L Respiratory Rate 18 18 18 Blood Pressure Blood Pressure [Ri ght Arm] 118/78 120/71 Pulse Oximetry 96 92 Oxygen Delivery Me thod Room Air Room Air 06/29/22 11:32 Temperature 98.7 F Pulse Rate Pulse Rate [Right Pulse Oximeter] 59 L Respiratory Rate 18 Blood Pressure Blood Pressure [Ri ght Arm] 115/58 L Pulse Oximetry 92 Oxygen Delivery Me thod Room Air Labs Labs: Laboratory Results - last 24 hr 06/28/22 06/29/22 06/29/22 10:15 10:22 10:22 WBC RBC Hgb Hct MCV MCH MCHC Plt Count Sodium 140 Potassium 4.1 Chloride 112 Carbon Dioxide 22 BUN 6 L Creatinine 0.8 Estimated Creat Clear 49.72 Estimated GFR 83 Glucose 100 Lactate 0.7 Calcium 9.0 Ionized Calcium Brian 1.27 Magnesium 1.7 Total Bilirubin 0.6 GGT 112 H 241 H AST 215 H ALT 196 H Alkaline Phosphatase 167 H C-Reactive Protein 5.1 H Total Protein 5.4 L Albumin 3.1 L Lipase 65 Procalcitonin 2.56 H 1.49 H 06/29/22 10:22 WBC 4.30 L RBC 4.11 Hgb 12.3 Hct 37.9 MCV 92 MCH 30 MCHC 33 Plt Count 141 Sodium Potassium Chloride Carbon Dioxide BUN Creatinine Estimated Creat Clear Estimated GFR Glucose Lactate Calcium Ionized Calcium Brian Magnesium Total Bilirubin GGT AST ALT Alkaline Phosphatase C-Reactive Protein Total Protein Albumin Lipase Procalcitonin
[2022-06-29 12:50] LABS: NT Pro B Type NatriureticPept* 2100 PG/mL (0-125)
[2022-06-29 13:01] LABS: Troponin I* < 0.01 ng/mL (0.01-0.04)
[2022-06-29] MEDS: PARoxetine 20 MG TABLET 30 MG PO (13:22)
[2022-06-29] MEDS: TRAMADOL HCL 50 MG TABLET 100 MG PO (15:23)
[2022-06-29] MEDS: KETOROLAC 30 MG/ML inj IVP (16:14)
[2022-06-29] MEDS: NICOTINE 21 MG PATCH 1 PATCH TRANSDERMA (16:17)
[2022-06-29] MEDS: ACETAMINOPHEN 325 MG TABLET PO (17:48)
--- NOTE | 2022-06-29 18:22 | PC.NURSE ---
End of shift. Pt has been pleasant. c/o abd pain on and off 0-7/10 she is getting po Tylenol, Ultram, Ativan and IV Toradol and heat to abd and back. also c/o abd pain with food intake. she was not anxious except when pain was 6-7/10. : replaced the nicotine patch. IV is patent. she is up ab yinka with IV pole. Po cipro was started. . Pt denies any dizziness/lightheadedness. she is tired and sleepy. and son where updated. Echo was done
[2022-06-29] MEDS: BUDESONIDE 0.5 MG/2ML NEB NEB (20:44)
[2022-06-30] VITALS (9 sets, daily range): BP systolic 118–139; BP diastolic 63–83; PULSE 50–64; RESP 16–18; TEMP 36.6–37.3; O2SAT 92–97
[2022-06-30] MEDS: 0.9 % SODIUM CHLORIDE 1000 ml 1,000 ML 125 ML IV (01:56)
[2022-06-30] MEDS: ONDANSETRON 2 MG/ML inj 4 MG IVP (04:09)
[2022-06-30] MEDS: KETOROLAC 30 MG/ML inj IVP (04:09)
[2022-06-30] MEDS: IPRAT-ALBUT 0.5-2.5 MG/3 ML NEB 1 NEB IH (04:10)
[2022-06-30] MEDS: TRAMADOL HCL 50 MG TABLET 100 MG PO ×2 (05:25→17:48)
[2022-06-30] MEDS: MAG HYDROX/ALUMINUM HYD/SIMETH 30 ML ORAL.SUSP 15 ML PO ×2 (05:45→20:48)
[2022-06-30] MEDS: DOCUSATE SODIUM 100 MG CAPSULE PO (05:46)
--- NOTE | 2022-06-30 06:27 | PC.NURSE ---
END OF SHIFT NOTE: PT IS ANXIOUS R/T HOSPITALIZATION. C/O SOB. UNABLE TO TAKE A ?DEEP BREATH?; SOME RELIEF POST DUO NEB. PT C/O LEFT SIDED ABDOMINAL PAIN; RATES 0-5/10 THAT WORSENED AFTER THE ADMINISTRATION OF TORADOL. ULTRAM GIVEN WITH RELIEF. PT C/O NAUSEA WITH SOME RELIEF FROM ZOFRAN. PT ADMINISTERED DOCUSATE FOR CONSTIPATION. ADMINISTERED MAALOX FOR C/O INDIGESTION.
[2022-06-30 07:03] LABS: Basophils Absolute Auto 0.03 K/uL (0.00-0.30); Basophils Percent Auto 0.5 % (0.0-3.0); Eosinophils Absolute Auto 0.19 K/uL (0.00-0.50); Eosinophils Percent Auto 3.1 % (0.0-7.0); Hematocrit 36.6 % (33.0-51.0); Immature Granulocytes Abs Auto 0.04 K/uL (0.00-0.30); Lymphocytes Percent Auto 18.3 % (20-44); Mean Corpuscular HGB Conc 33 gm/dL (32-36); Mean Corpuscular Hemoglobin 30 pg (26-34); Mean Corpuscular Volume 91 fL (80-100); Monocytes Percent Auto 8.9 % (0.0-11.0); Neutrophils Absolute Auto 4.15 K/uL (1.7-7.0); Neutrophils Percent Auto 68.5 % (42.0-72.0); Platelet Count* 156 K/uL (140-440); RDW Coefficient of Variation % 13.3 % (11.5-15.5); Red Blood Count 4.02 m/uL (4.00-5.20); White Blood Count* 6.06 K/uL (4.50-11.00)
[2022-06-30 07:10] LABS: Slide Review Reflex No
[2022-06-30 07:12] LABS: INR 0.98 (0.91-1.10); Prothrombin Time 13.3 Seconds
[2022-06-30] MEDS: PARoxetine 20 MG TABLET 30 MG PO (08:40)
[2022-06-30 08:44] LABS: Albumin* 3.2 g/dL (3.3-5.0); Chloride* 110 mmol/L (96-114)
[2022-06-30 08:45] LABS: Potassium* 3.6 mmol/L (3.6-5.1); Sodium* 139 mmol/L (135-149)
[2022-06-30 08:47] LABS: Creatinine* 0.8 mg/dL (0.5-1.5); Est. Creatinine Clearance* 49.72; Estimated Glomerular Filt Rate 83 ml/min
[2022-06-30 08:48] LABS: Alanine Aminotransferase* 176 U/L (4-35); Alkaline Phosphatase* 187 U/L (40-150); Aspartate Amino Transferase* 130 U/L (12-35); Bilirubin Total* 0.5 mg/dL (0.1-1.5); Blood Urea Nitrogen* 6 mg/dL (7-30); Calcium* 8.6 mg/dL (8.4-10.6); Carbon Dioxide* 21 mmol/L (20-32); Gamma Glutamyl Transpeptidase* 251 U/L (8-55); Glucose* 147 mg/dL (60-115); Lipase* 57 U/L (23-300); Magnesium* 1.5 mg/dL (1.5-2.6); Total Protein* 5.5 g/dL (6.0-8.3)
[2022-06-30 08:50] LABS: C Reactive Protein* 3.4 mg/dL (0.5-1.0)
[2022-06-30 08:57] LABS: NT Pro B Type NatriureticPept* 3330 PG/mL (0-125)
[2022-06-30 09:05] LABS: Procalcitonin* 0.95 ng/mL (<0.50)
[2022-06-30 09:13] LABS: HCO3 VBG 24 mmol/L (21-28); Lactate* 1.1 mmol/L (0.5-1.9); PCO2 VBG 37 mmHG (40-50); pH VBG 7.418 (7.32-7.43)
[2022-06-30] MEDS: CIPROFLOXACIN 400 MG/200 ML inj IVPB ×2 (09:14→20:50)
[2022-06-30] MEDS: PANTOPRAZOLE SODIUM 40 MG INJ IVP (09:14)
[2022-06-30] MEDS: NICOTINE 21 MG PATCH 1 PATCH TRANSDERMA (09:20)
[2022-06-30] MEDS: polyethylene glycoL 3350 17 GM PACK PO (09:49)
[2022-06-30] MEDS: FUROSEMIDE 10 MG/ML inj 20 MG IVP (10:27)
[2022-06-30] MEDS: POTASSIUM CHLORIDE 10 MEQ CAPSULE ER 20 MEQ PO (10:28)
--- NOTE | 2022-06-30 10:46 | P.IMPN_ITS ---
Progress Note: A&P Assessment and plan (1) Transaminitis: Problem details: ruq u/s showing no gallstones, mild GB contraction. Likely secondary to bacteremia; follow LFTs if trending up will obtain Surgery consult; HIDA scan. Check hepatitis serologies Status: Acute (2) Anxiety disorder, unspecified: Problem details: Fluoxetine. P.r.n. Ativan. Status: Acute (3) Multiple sclerosis: Problem details: Diagnosed many years ago. Previously was on disease modifying medications. Has been off these medications for several years. Last saw neurologist 1-2 years ago. Status: Acute (4) Tobacco dependence: Problem details: Nicotine support offered. Status: Acute (5) Bacteremia due to Gram-negative bacteria: Problem details: Likely from UTI. cipro sensitive; changing from zosyn. fluids d/c. hydromorphone d/c. Status: Acute (6) SOB (shortness of breath): Problem details: not hypoxic; not tachycardic; no CP BNP trending up; will give lasix X1 reassess. Will need outpatient PFTs and sleep study Status: Acute Time Spent With Patient Total time spent: 30 minutes Subjective Date Seen: 06/30/22 Interval history: Endorses intermittent SOB but not hypoxic endorses nausea, dyspepsia; but no vomiting Denies chest pain intermittent abdominal pain but currently denies abdominal pain Exam Narrative: Exam Narrative: Gen: no acute distress HEENT: NCAT EOMI MMM CV: RRR normal s1 s2 Lungs: diminished at base Abd: soft, nt, nd Neuro: Alert, oriented nonfocal screening exam Ext: no pedal edema Const: Vital Signs, click to edit/add: Vital Signs - 24 hr 06/29/22 11:32 06/29/22 15:10 06/29/22 15:10 Temperature 98.7 F 97.4 F L Pulse Rate [Right Pulse Oximeter] 59 L 86 86 Respiratory Rate 18 16 16 Blood Pressure [Ri ght Arm] 115/58 L 101/73 Pulse Oximetry 92 97 Oxygen Delivery Me thod Room Air Room Air 06/29/22 19:00 06/29/22 23:14 06/29/22 23:55 Temperature 97.7 F 99.0 F Pulse Rate [Right Pulse Oximeter] 55 L 55 L 50 L Respiratory Rate 18 18 16 Blood Pressure [Ri ght Arm] 125/78 126/73 Pulse Oximetry 93 92 Oxygen Delivery Me thod Room Air Room Air 06/30/22 03:45 06/30/22 07:54 06/30/22 07:56 Temperature 99.1 F 98.2 F Pulse Rate [Right Pulse Oximeter] 50 L 55 L 55 L Respiratory Rate 18 18 18 Blood Pressure [Ri t Arm] 139/83 119/63 Pulse Oximetry 94 92 Oxygen Delivery Me thod Room Air Room Air Labs Labs: Laboratory Results - last 24 hr 06/29/22 06/30/22 06/30/22 10:22 06:00 06:00 WBC 6.06 RBC 4.02 Hgb 12.0 Hct 36.6 MCV 91 MCH 30 MCHC 33 RDW Coeff of Mauricio 13.3 Plt Count 156 Neut % (Auto) 68.5 Lymph % (Auto) 18.3 L [place] % (Auto) 8.9 Eos % (Auto) 3.1 Baso % (Auto) 0.5 Neut # (Auto) 4.15 Lymph # (Auto) 1.10 [place] # (Auto) 0.50 Eos # (Auto) 0.19 Baso # (Auto) 0.03 Abs Immat Gran (auto) 0.04 INR 0.98 VBG pH VBG pCO2 VBG pO2 VBG HCO3 Sodium 140 Potassium 4.1 Chloride 112 Carbon Dioxide 22 BUN 6 L Creatinine 0.8 Estimated Creat Clear 49.72 Estimated GFR 83 Glucose 100 Lactate Calcium 9.0 Magnesium 1.7 Total Bilirubin 0.6 GGT 241 H AST 215 H ALT 196 H Alkaline Phosphatase 167 H Troponin I < 0.01 L C-Reactive Protein 5.1 H NT-Pro-B Natriuret Pep 2100 H Total Protein 5.4 L Albumin 3.1 L Lipase 65 Procalcitonin 1.49 H TSH 06/30/22 06/30/22 06/30/22 06:00 06:00 09:09 WBC RBC Hgb Hct MCV MCH MCHC RDW Coeff of Mauricio Plt Count Neut % (Auto) Lymph % (Auto) [place] % (Auto) Eos % (Auto) Baso % (Auto) Neut # (Auto) Lymph # (Auto) [place] # (Auto) Eos # (Auto) Baso # (Auto) Abs Immat Gran (auto) INR VBG pH 7.418 VBG pCO2 37 L VBG pO2 78.0 H VBG HCO3 24 Sodium 139 Potassium 3.6 Chloride 110 Carbon Dioxide 21 BUN 6 L Creatinine 0.8 Estimated Creat Clear 49.72 Estimated GFR 83 Glucose 147 H Lactate 1.1 Calcium 8.6 Magnesium 1.5 Total Bilirubin 0.5 GGT 251 H AST 130 H ALT 176 H Alkaline Phosphatase 187 H Troponin I C-Reactive Protein 3.4 H NT-Pro-B Natriuret Pep 3330 H Total Protein 5.5 L Albumin 3.2 L Lipase 57 Procalcitonin 0.95 H TSH 3.580 Imaging US - abdomen: Radiologist's impression: IMPRESSION: Mild gallbladder wall thickening of uncertain etiology, possibly partially contracted. No gallstones or other sonographic abnormality. TTE 1. Normal EF, normal systolic function 2. No aortic stenosis or regurgitation 3. mild/moderate MR 4. Possible left to right atrial level shunt most consistent with PFO
--- NOTE | 2022-06-30 17:21 | PC.NURSE ---
End of shift.? Pt has been pleasant. she is feeling better today. she is forgetful at times. family was visiting today. no abd pain today. she is eating with no problems today. SL was replaced and IV antibiotics was given. replaced the?nicotine patch @ 1200 it was found on the floor. left shoulder/back. she still has some discomfort with voiding. she has white patches to her tongue and md was updated. IV is patent. fluids where stopped and she was SL. she got IV Lasix today and she was up many times to the BR. Pt denies any dizziness/lightheadedness.? she is tired and sleepy. she feels better today.
--- NOTE | 2022-06-30 17:52 | PC.NURSE ---
upper abd pain 6/10 it started to hurt after eating. heat and po ultram was given. pt did not want anything else so far. will monitor.
[2022-06-30] MEDS: HYDROmorphone 0.5 mg/0.5 ml inj IVP (18:29)
--- NOTE | 2022-06-30 18:40 | PC.NURSE ---
1829 pain upper abd is still 6/10 pt is restless in bed. gave 0.5 MG IV P Dilaudid. pain was 0/10 with in a few minutes.
[2022-06-30] MEDS: MELATONIN 3 MG TABLET PO (20:48)
[2022-06-30] MEDS: LORazepam 0.5 MG TABLET PO (20:49)
[2022-06-30] MEDS: HEPARIN 5,000 UNIT/0.5 ML INJ 5000 UNIT SUBCUT (20:51)
[2022-07-01] VITALS (25 sets, daily range): BP systolic 105–136; BP diastolic 62–80; PULSE 58–85; RESP 14–16; TEMP 35.8–37.3; O2SAT 85–99
[2022-07-01] MEDS: TRAMADOL HCL 50 MG TABLET 100 MG PO (02:16)
--- NOTE | 2022-07-01 04:37 | PC.NURSE ---
Pt rested well this night. Pain controlled with Ultram Q6. Pt up IND in room. Voiding adequately. VS unremarkable. No N/V. Afebrile.
[2022-07-01 07:05] LABS: Basophils Absolute Auto 0.03 K/uL (0.00-0.30); Basophils Percent Auto 0.5 % (0.0-3.0); Eosinophils Absolute Auto 0.28 K/uL (0.00-0.50); Eosinophils Percent Auto 5.1 % (0.0-7.0); Hematocrit 38.6 % (33.0-51.0); Hemoglobin* 12.8 gm/dL (12.0-16.0); Immature Granulocytes Abs Auto 0.02 K/uL (0.00-0.30); Lymphocytes Absolute Auto 1.74 K/uL (0.90-2.90); Lymphocytes Percent Auto 31.5 % (20-44); Mean Corpuscular HGB Conc 33 gm/dL (32-36); Mean Corpuscular Hemoglobin 30 pg (26-34); Mean Corpuscular Volume 89 fL (80-100); Monocytes Percent Auto 9.1 % (0.0-11.0); Neutrophils Absolute Auto 2.95 K/uL (1.7-7.0); Neutrophils Percent Auto 53.4 % (42.0-72.0); Platelet Count* 169 K/uL (140-440); Red Blood Count 4.34 m/uL (4.00-5.20); White Blood Count* 5.52 K/uL (4.50-11.00)
[2022-07-01 07:08] LABS: Slide Review Reflex No
[2022-07-01 07:22] LABS: Albumin* 3.5 g/dL (3.3-5.0); Chloride* 103 mmol/L (96-114)
[2022-07-01 07:23] LABS: Potassium* 3.6 mmol/L (3.6-5.1); Sodium* 138 mmol/L (135-149)
[2022-07-01 07:25] LABS: Aspartate Amino Transferase* 104 U/L (12-35); Bilirubin Direct* 0.2 mg/dL (0.0-0.5); Bilirubin Total* 0.5 mg/dL (0.1-1.5); Blood Urea Nitrogen* 5 mg/dL (7-30); Carbon Dioxide* 28 mmol/L (20-32); Creatinine* 0.8 mg/dL (0.5-1.5); Est. Creatinine Clearance* 49.72; Estimated Glomerular Filt Rate 83 ml/min; Total Protein* 6.1 g/dL (6.0-8.3)
[2022-07-01 07:26] LABS: Alanine Aminotransferase* 167 U/L (4-35); Alkaline Phosphatase* 226 U/L (40-150); Calcium* 9.1 mg/dL (8.4-10.6); Glucose* 106 mg/dL (60-115); Magnesium* 1.8 mg/dL (1.5-2.6)
--- NOTE | 2022-07-01 08:43 | CRLHL7_ITS ---
For Patients: As a result of the Century Cures Act, medical imaging exams and procedure reports are released immediately into your electronic medical record. You may view this report before your referring provider. If you have questions, please contact your health care provider. INDICATION: ABD PAIN, NAUSEA Indication: Abdominal pain and nausea. Technique: CT of the abdomen and pelvis. 68 cc of Isovue 370 IV. Coronal/sagittal reconstruction images. Comparison: Ultrasound of the abdomen, 06/29/2022. CT of the chest, abdomen, and pelvis, 06/26/2022. CT of the abdomen and pelvis, 10/16/2021. CT of the abdomen pelvis, 04/23/2021. CT of the abdomen and pelvis, 12/15/2019. Findings: Lung bases: Small, bilateral pleural effusions. These appear non loculated. There is no split pleura sign. There is no pericardial effusion. There is passive atelectasis. No basilar pneumothorax or suspicious pulmonary nodule. Abdomen/pelvis: Low-dense hepatic lesions are compatible with benign cysts. Liver morphology is non cirrhotic. There is pericholecystic fluid, as seen on image 52, series 2. This is a new finding when compared with the CT from 06/26/2022. Gallbladder wall thickening was present on the ultrasound from 06/29/2022. The nephrograms are symmetric. There is no solid renal mass. There is a nephrolith in the left intrarenal collecting system, which measures 4 millimeters. Spleen size is normal. There is no pancreatic mass or pancreatic duct dilation. No glandular atrophy is seen. Urinary bladder, uterus, and adnexa show no acute findings. There is diverticulosis present in the colon. No findings are seen to indicate diverticulitis. There is no pneumatosis coli. There is no pneumatosis intestinalis. There is no inguinal or pelvic sidewall lymphadenopathy. The retroperitoneum and gastrohepatic ligament are normal. Visceral artery branches are patent. The bone windows demonstrate no suspicious bone lesions. There is degenerative disc disease. The vertebral body heights are maintained. Preservation of normal lumbar lordosis. Impression: 1. Pericholecystic fluid. Gallbladder wall thickening was noted on the recent ultrasound from 06/29/2022. These findings raise the suspicion for cholecystitis. 2. Normal caliber biliary tree. 3. Small, bilateral, non loculated pleural effusions. 4. Nonobstructive nephrolith in the left intrarenal collecting system. There is no delayed nephrogram, hydronephrosis, or perinephric edema. 5. Small bowel fold thickening described on the CT from 06/26/2022 has resolved. Dictated by Chalino Adams MD @ 07/01/2022 10:26:28 AM Please note that all CT scans at this facility use dose modulation, iterative reconstruction, and/or weight-based dosing when appropriate to reduce radiation dose to as low as reasonably achievable. Dictated by: Chalino Adams MD @ 07/01/2022 10:26:38 (Electronically Signed)
--- NOTE | 2022-07-01 08:51 | PM.IMPN1 ---
Progress Note: A&P Assessment and plan (1) Bacteremia due to Gram-negative bacteria: Problem details: source unclear. cipro sensitive; dc cipro 07/01 d/t oral thrush and patient request, change to zosyn 07/02. nystatin ordered for thrush Status: Acute (2) Abdominal pain: Problem details: c/o epigastric pain; dyspepsia; scheduled protonix+carafate; Repeat CT AP today; check lactate, lipase, check UA Status: Acute (3) Transaminitis: Problem details: ruq u/s showing no gallstones, mild GB contraction. Likely secondary to bacteremia; follow LFTs if trending up will obtain Surgery consult; HIDA scan. Check hepatitis serologies Status: Acute (4) Multiple sclerosis: Problem details: Diagnosed many years ago. Previously was on disease modifying medications. Has been off these medications for several years. Last saw neurologist 1-2 years ago. Status: Acute (5) SOB (shortness of breath): Problem details: not hypoxic; not tachycardic; no CP BNP trending up; will give lasix X1 reassess. Will need outpatient PFTs and sleep study Status: Acute (6) Tobacco dependence: Problem details: Nicotine support offered. Status: Acute (7) Anxiety disorder, unspecified: Problem details: Fluoxetine. P.r.n. Ativan. Status: Acute Time Spent With Patient Total time spent: 30 minutes Dispo-Likely 1-2 days then dc to home Subjective Date Seen: 07/01/22 Interval history: patient c/o epigastric abdominal pain c/o abdominal pain with eating c/o oral thrush c/o dyspepsia Exam Narrative: Exam Narrative: Gen: No acute distress HEENT: NCAT EOMI MMM CV: RRR normal s1 s2 Lungs: CTAB Abd: Soft, mid epigastric tenderness; no rebound or guarding Neuro: AOX3; nonfocal screening exam Const: Vital Signs, click to edit/add: Vital Signs - 24 hr 06/30/22 11:48 06/30/22 15:36 06/30/22 15:00 Temperature 98.7 F 97.9 F Pulse Rate [Right Pulse Oximeter] 57 L 55 L 55 L Respiratory Rate 16 16 16 Blood Pressure [Ri ght Arm] 123/73 126/67 Pulse Oximetry 93 97 Oxygen Delivery Me thod Room Air Room Air 06/30/22 19:00 06/30/22 22:30 06/30/22 22:52 Temperature 98.9 F 98.2 F Pulse Rate [Right Pulse Oximeter] 64 64 64 Respiratory Rate 16 16 16 Blood Pressure [Ri ght Arm] 121/78 118/83 Pulse Oximetry 93 94 Oxygen Delivery Me thod Room Air Room Air 07/01/22 02:20 Temperature 98.2 F Pulse Rate [Right Pulse Oximeter] 64 Respiratory Rate 16 Blood Pressure [Ri ght Arm] 119/80 Pulse Oximetry 91 Oxygen Delivery Me thod Room Air Labs Labs: Laboratory Results - last 24 hr 06/30/22 06/30/22 06/30/22 06:00 06:00 09:09 WBC RBC Hgb Hct MCV MCH MCHC RDW Coeff of Mauricio Plt Count Neut % (Auto) Lymph % (Auto) [place] % (Auto) Eos % (Auto) Baso % (Auto) Neut # (Auto) Lymph # (Auto) [place] # (Auto) Eos # (Auto) Baso # (Auto) Abs Immat Gran (auto) VBG pH 7.418 VBG pCO2 37 L VBG pO2 78.0 H VBG HCO3 24 Sodium Potassium Chloride Carbon Dioxide BUN Creatinine Estimated Creat Clear Estimated GFR Glucose Lactate 1.1 Calcium Magnesium Total Bilirubin Direct Bilirubin AST ALT Alkaline Phosphatase C-Reactive Protein 3.4 H NT-Pro-B Natriuret Pep 3330 H Total Protein Albumin Procalcitonin 0.95 H TSH 3.580 07/01/22 07/01/22 06:38 06:38 WBC 5.52 RBC 4.34 Hgb 12.8 Hct 38.6 MCV 89 MCH 30 MCHC 33 RDW Coeff of Mauricio 13.0 Plt Count 169 Neut % (Auto) 53.4 Lymph % (Auto) 31.5 [place] % (Auto) 9.1 Eos % (Auto) 5.1 Baso % (Auto) 0.5 Neut # (Auto) 2.95 Lymph # (Auto) 1.74 [place] # (Auto) 0.50 Eos # (Auto) 0.28 Baso # (Auto) 0.03 Abs Immat Gran (auto) 0.02 VBG pH VBG pCO2 VBG pO2 VBG HCO3 Sodium 138 Potassium 3.6 Chloride 103 Carbon Dioxide 28 BUN 5 L Creatinine 0.8 Estimated Creat Clear 49.72 Estimated GFR 83 Glucose 106 Lactate Calcium 9.1 Magnesium 1.8 Total Bilirubin 0.5 Direct Bilirubin 0.2 AST 104 H ALT 167 H Alkaline Phosphatase 226 H C-Reactive Protein NT-Pro-B Natriuret Pep Total Protein 6.1 Albumin 3.5 Procalcitonin TSH
[2022-07-01] MEDS: HEPARIN 5,000 UNIT/0.5 ML INJ 5000 UNIT SUBCUT ×2 (08:59→20:06)
[2022-07-01] MEDS: polyethylene glycoL 3350 17 GM PACK PO (09:00)
[2022-07-01] MEDS: PARoxetine 20 MG TABLET 30 MG PO (09:00)
[2022-07-01] MEDS: DOCUSATE SODIUM 100 MG CAPSULE PO (09:05)
[2022-07-01 09:06] LABS: Lactate* 0.6 mmol/L (0.5-1.9)
[2022-07-01 09:30] LABS: Lipase* 75 U/L (23-300)
[2022-07-01] MEDS: PANTOPRAZOLE SODIUM 40 MG INJ IVP (09:40)
[2022-07-01] MEDS: PIPERACILLIN/TAZOBACTAM 3.375 GM in 0.9 % SODIUM CHLORIDE Mini-bag 100 ML IVPB ×2 (09:40→21:14)
[2022-07-01] MEDS: SUCRALFATE 1 GM TABLET PO ×3 (09:42→21:21)
[2022-07-01] MEDS: NICOTINE 21 MG PATCH 1 PATCH TRANSDERMA (10:01)
[2022-07-01 10:12] LABS: Appearance Urine Clear (Clear); Bilirubin Urine Negative (Negative); Blood Urine Trace-intact (Negative); Color Urine Yellow (Yellow); Glucose Urine Negative (Negative); Ketones Urine Negative (Negative); Leukocyte Esterase Urine Negative (Negative); Nitrite Urine Negative (Negative); Protein Urine Negative (Negative); Urobilinogen Urine 0.2 (0.2-1.0); pH Urine 8.5 (5.0-8.5)
[2022-07-01 10:13] LABS: RBC Urine 0-2 (0-2); Squamous Epithelial Cell Urine Few (None-Few); WBC Urine 0-2 (0-5)
--- NOTE | 2022-07-01 11:29 | P.GSCN_ITS ---
History of Present Illness Consult details Date Seen: 07/01/22 Consult date: 07/01/22 Narrative: The patient is a 62-year-old female who presented to the emergency department on June 26 which is 5 days ago. At the time she had fever and back pain. She states that she had a history of diverticular disease and thought that this was what was going on. She states she ate corn casserole in the evening and she felt ?bad. ? When she woke up the next morning she was unable to walk and had a fever of up to 104. She states that the pain is in her mid abdomen and has gradually moved up to her epigastric region. She states that the pain is mostly centered but is may be worse off to the right. She has never had pain like this before. She has had nausea and vomiting. She was short of breath initially but she was given Lasix which helped. She has not had a bowel movement since she has been here. Eating makes the pain worse so she has been essentially NPO except for liquid since she has been in the hospital. Movement and taking a deep breath also makes the pain worse. Name when she came in on the she had a CT scan as well as blood cultures. The CT scan was essentially unrevealing except for may be jejunal thickening. She was discharged home and when the blood cultures returned positive for Gram-negative rods she was told to return. She was then admitted on the . She had mildly elevated LFTs and an ultrasound showed a thickened gallbladder without stones or pericholecystic fluid. She she was continued on antibiotics for bacteremia presumed to be secondary to urinary tract infection. She states that she has had some urinary urgency as well and has been urinating more than usual since she has been in the hospital. She continued to have abdominal pain and a CT scan was obtained today which showed pericholecystic fluid as well as gallbladder thickening consistent with cholecystitis. I was then consulted. Review of Systems Status of ROS: Reports: 10 or more systems reviewed and unremarkable except as noted in History and below [facility] Medical History Anxiety disorder, unspecified Bacteremia due to Gram-negative bacteria Multiple sclerosis Tobacco dependence Surgical History History of appendectomy History of sinus surgery Family History (Updated 07/01/22 @ 12:54 by Fabby Natarajan MD) Other Adopted Social History (Updated 07/01/22 @ 12:54 by Fabby Natarajan MD) Narrative: Smoker, no significant alcohol history. She is disabled secondary to MS. Highest level of school completed/degree received: high school graduate Smoking Status: Current every day smoker What tobacco products do you use: cigarettes Do you use any of these nicotine containing products: None Second hand tobacco smoke exposure: No How often do you have a drink containing alcohol: monthly or less Alcohol type: hard liquor How many standard drinks containing alcohol do you have on a typical day: 1 or 2 How often do you have six or more drinks on one occasion: Never AUDIT-C Alcohol total score: 1 Non-prescribed substance use: denies use Caffeine: Yes Little interest or pleasure in doing things: several days Feeling down, depressed, or hopeless: several days service: No Meds Home Medications and Allergies Home Medications Medication Instructions Recorded Confirmed Type alprazolam 0.25 mg tablet (Xanax) 0.25 - 0.5 mg PO HS PRN sleep 06/28/22 06/28/22 History Allergies Allergy/AdvReac Type Severity Reaction Status Date / Time prochlorperazine Allergy Irritable Verified 07/01/22 09:28 Sulfa (Sulfonamide Allergy Verified 07/01/22 09:28 Antibiotics) Exam Narrative: Exam Narrative: General appearance: Alert, cooperative, and in no distress Eyes: PERRLA, eye lids clear, and sclera white HENT Head: Normocephalic Ears: External ears normal Pulmonary: Clear to auscultation bilaterally Cardiovascular Heart: Regular rate and rhythm Extremities: warm and well perfused Gastrointestinal Abdominal: Scars consistent with surgical history. No hernias. Mildly tender in the upper abdomen. Negative Thurman sign Musculoskeletal: Extremities: Upper: Both upper extremities have normal joint range of motion and intact strength. Lower: Both lower extremities have normal joint range of motion and intact strength. Skin: Normal skin color, texture, and turgor. No rashes or lesions. Neurologic: No focal deficits Psychiatric: Alert, oriented, cooperative, normal affect. Const: Vital Signs, click to edit/add: Vital Signs - 24 hr 06/30/22 11:48 06/30/22 15:36 06/30/22 15:00 Temperature 98.7 F 97.9 F Pulse Rate [Right Pulse Oximeter] 57 L 55 L 55 L Respiratory Rate 16 16 16 Blood Pressure [Ri ght Arm] 123/73 126/67 Pulse Oximetry 93 97 Oxygen Delivery Me thod Room Air Room Air 06/30/22 19:00 06/30/22 22:30 06/30/22 22:52 Temperature 98.9 F 98.2 F Pulse Rate [Right Pulse Oximeter] 64 64 64 Respiratory Rate 16 16 16 Blood Pressure [Ri ght Arm] 121/78 118/83 Pulse Oximetry 93 94 Oxygen Delivery Me thod Room Air Room Air 07/01/22 02:20 07/01/22 08:00 07/01/22 08:00 Temperature 98.2 F 99.2 F Pulse Rate [Right Pulse Oximeter] 64 64 64 Respiratory Rate 16 16 16 Blood Pressure [Ri ght Arm] 119/80 117/79 Pulse Oximetry 91 92 Oxygen Delivery Me thod Room Air Room Air 07/01/22 11:09 Temperature 99.0 F Pulse Rate [Right Pulse Oximeter] 58 L Respiratory Rate 16 Blood Pressure [Ri ght Arm] 113/79 Pulse Oximetry 95 Oxygen Delivery Me thod Room Air Results Labs Labs: Abnormal lab results 07/01/22 07/01/22 Range/Units 06:38 08:47 BUN 5 L (7-30) mg/dL AST 104 H (12-35) U/L ALT 167 H (4-35) U/L Alkaline Phosphatase 226 H (40-150) U/L Urine Blood Trace-intact A (Negative) Diabetes panel 07/01/22 Range/Units 06:38 Sodium 138 (135-149) mmol/L Potassium 3.6 (3.6-5.1) mmol/L Chloride 103 (96-114) mmol/L Carbon Dioxide 28 (20-32) mmol/L BUN 5 L (7-30) mg/dL Creatinine 0.8 (0.5-1.5) mg/dL Glucose 106 (60-115) mg/dL Calcium 9.1 (8.4-10.6) mg/dL AST 104 H (12-35) U/L ALT 167 H (4-35) U/L Alkaline Phosphatase 226 H (40-150) U/L Total Protein 6.1 (6.0-8.3) g/dL Albumin 3.5 (3.3-5.0) g/dL Calcium panel 07/01/22 Range/Units 06:38 Calcium 9.1 (8.4-10.6) mg/dL Albumin 3.5 (3.3-5.0) g/dL Pituitary panel 07/01/22 Range/Units 06:38 Sodium 138 (135-149) mmol/L Potassium 3.6 (3.6-5.1) mmol/L Chloride 103 (96-114) mmol/L Carbon Dioxide 28 (20-32) mmol/L BUN 5 L (7-30) mg/dL Creatinine 0.8 (0.5-1.5) mg/dL Glucose 106 (60-115) mg/dL Calcium 9.1 (8.4-10.6) mg/dL Adrenal panel 07/01/22 Range/Units 06:38 Sodium 138 (135-149) mmol/L Potassium 3.6 (3.6-5.1) mmol/L Chloride 103 (96-114) mmol/L Carbon Dioxide 28 (20-32) mmol/L BUN 5 L (7-30) mg/dL Creatinine 0.8 (0.5-1.5) mg/dL Glucose 106 (60-115) mg/dL Calcium 9.1 (8.4-10.6) mg/dL Total Bilirubin 0.5 (0.1-1.5) mg/dL AST 104 H (12-35) U/L ALT 167 H (4-35) U/L Alkaline Phosphatase 226 H (40-150) U/L Total Protein 6.1 (6.0-8.3) g/dL Albumin 3.5 (3.3-5.0) g/dL All other labs normal. Imaging Abdomen CT scan report/results: report reviewed and image reviewed (On 06/[address] scan was performed which was normal except for thickened jejunum loops.INDICATION: ABD PAIN, NAUSEA Indication: Abdominal pain and nausea. Technique: CT of the abdomen and pelvis. 68 cc of Isovue 370 IV. Coronal/sagittal reconstruction images. Comparison: Ul) Abdominal ultrasound report/results: report reviewed and image reviewed (document embedded [address] [address] Diagnostic Imaging Report Patient: Weston Healy [facility]#: [id number]: 9Acct:[id number]: [id number] Date: 06/29/22Attending Dr: Sonia Hensley M.D. Ordering Physician: Sonia Hnesley ) Assessment and Plan Assessment and plan (1) Bacteremia due to Gram-negative bacteria: Problem comment: source unclear. cipro sensitive; dc cipro 07/01 d/t oral thrush and patient request, change to zosyn 07/02. nystatin ordered for thrush Status: Acute (2) Abdominal pain: Problem comment: c/o epigastric pain; dyspepsia; scheduled protonix+carafate; Repeat CT AP today; check lactate, lipase, check UA Status: Acute (3) Transaminitis: Problem comment: ruq u/s showing no gallstones, mild GB contraction. Likely secondary to bacteremia; follow LFTs if trending up will obtain Surgery consult; HIDA scan. Check hepatitis serologies Status: Acute (4) Multiple sclerosis: Problem comment: Diagnosed many years ago. Previously was on disease modifying medications. Has been off these medications for several years. Last saw neurologist 1-2 years ago. Status: Acute (5) Cholecystitis: Status: Acute Plan The patient is a 62-year-old female with acalculous cholecystitis causing gram- negative bacteremia. On we discussed the management of this. I explained the acalculous cholecystitis generally occurs in patients with pre-existing medical conditions, however can occur and healthy patients as well. Sometimes there is even sludge or small stones that are found in the gallbladder that are not visible on imaging. The treatment for this is cholecystostomy tube if there are contraindications to surgery. The patient is otherwise healthy without contraindications then cholecystectomy is reasonable. She had very mild common bile duct dilatation as well as elevated AST and for this reason if it is feasible and safe I recommended cholangiogram. If the gallbladder is very inflamed and the surgery is quite difficult that we will plan on not performing the cholangiogram and just following LFTs. She is agreeable with this plan. We discussed the risks of surgery including bleeding, injury to other structures, conversion to open and need for other procedures after surgery. We also discussed recovery. She is agreeable to proceed with surgery. We will plan on this afternoon as she has already been on antibiotics for several days and I do not think that any further cooling off period would change the course.
--- NOTE | 2022-07-01 13:00 | CRLHL7_ITS ---
For Patients: As a result of the Century Cures Act, medical imaging exams and procedure reports are released immediately into your electronic medical record. You may view this report before your referring provider. If you have questions, please contact your health care provider. INDICATION : Laparoscopic cholecystectomy. TECHNIQUE : Intraoperative cholangiogram. Contrast injected via gallbladder neck and cystic duct. FINDINGS : Fluoroscopy time was 33.1 seconds. 1 image was obtained. IMPRESSION : Normal caliber intra and extrahepatic ducts. No filling defects. Contrast seen within the duodenum. Normal intraoperative cholangiogram. Dictated by Ezequiel Morris MD @ 07/02/2022 8:15:09 AM (Electronically Signed)
[2022-07-01] MEDS: CEFAZOLIN 1 GM inj IVP (13:37)
[2022-07-01] MEDS: IOPAMIDOL 50 ML VIAL INJECTION (14:37)
--- NOTE | 2022-07-01 15:05 | P.GSOP_ITS ---
Operative Note Date of procedure: 07/01/22 Type of Procedure: 1. Laparoscopic cholecystectomy 2. Intraoperative cholangiogram Procedure Description: After discussing the risks and benefits of the procedure, the patient signed informed consent.? The operative site was marked and the patient was brought to the operating room and placed on the operating table in supine position.? Care was taken to pad the patient's pressure points.?? The patient was then intubated by anesthesia.?? The operative site was then prepped and draped in the usual sterile fashion.? A time-out was then performed. Entrance to the abdomen was gained via a 5 mm Visiport in the left upper q uadrant. The abdomen was insufflated and briefly surveyed for signs of injury. There was none. A 10 mm umbilical port was placed as well as 2 working ports along the right costal margin, all under direct vision. The patient was then placed in reverse Trendelenburg position with the right side up. The gallbladder fundus was grasped and retracted cephalad. There were adhesions between the duodenum, colon and gallbladder. These were all filmy and were taken down with cautery. There was edema about the gallbladder. The infundibulum was grasped. A combination of hook cautery and blunt dissection was used to carefully dissect out the cystic duct and artery until they could clearly be seen entering the gallbladder without any intervening structures. The gallbladder was dissected off the cystic plate to achieve the critical view. Once this was achieved the cystic artery was clipped with 2 clips proximally and 1 clip distally and transected with the scissors. A clip was then placed across the junction of the gallbladder neck and the cystic duct. A ductotomy was then created. A cholangiocatheter was then advanced into the abdomen and placed into the cystic duct stump. A saline leak test was performed. The patient was then placed flat and fluoro was brought into the field. Contrast was then injected and it was brisk filling of the cystic duct, distal common bile duct and duodenum without filling defects. More contrast was injected and resulted in opacifications of the left and right hepatic ducts. The cholangiocatheter was then removed and the patient was placed back in p osition. Clips were placed across the distal cystic duct and the duct was clipped. The gallbladder was then taken off of the liver bed and removed from the abdomen using an Endo-Catch bag. The gallbladder bed was surveyed for hemostasis which appeared adequate. A small amount of bile which had spilled was suctioned from the abdomen. The ports were removed and the abdomen desufflated. The umbilical port fascia was closed with 0 Vicryl. The skin was closed with absorbable subcuticular suture. Sterile dressings were then applied. Instrument sponge and needle counts were correct at the end of the case. The patient was then woken and transferred to the PACU in stable condition. ? The patient tolerated the procedure well. Findings: Distended gallbladder with edema. No choledocholithiasis on intraoperative cholangiogram. Anesthesia: GETA Surgeon: Fabby Natarajan MD Estimated blood loss (mL): 5 Condition: stable Disposition: PACU
[2022-07-01] MEDS: LACTATED RINGERS 1000 ML 1,000 ML 125 ML IV ×2 (15:30→16:20)
[2022-07-01] MEDS: BUPIVACAINE 0.25% 30 ML 10 ML INJECTION (15:31)
--- NOTE | 2022-07-01 15:37 | W.ANESCHARGE ---
Anesthesia Charges Start Date/Time Anesthesia Start Date: 07/01/22 Anesthesia Start Time: 13:25 Stop Date/Time Anesthesia Stop Date: 07/01/22 Anesthesia Stop Time: 15:21 Summary Emergency: No
[2022-07-01] MEDS: fentaNYL 100 MCG/2 ML inj 50 MCG IVP ×2 (15:47→15:53)
[2022-07-01] MEDS: MEPERIDINE 25 MG/ML INJ 12.5 MG IVP ×2 (16:04)
[2022-07-01] MEDS: HYDROmorphone 0.5 mg/0.5 ml inj IVP ×3 (18:16→22:12)
--- NOTE | 2022-07-01 18:59 | PC.NURSE ---
End of shift.? Pt is pleasant. she is feeling worse today.? CT scan was done. Surgeon was contacted and pt went to surgery and had a lap yolanda ? family was visiting today.? no 3-7 pain she is getting po and IV pain meds. she was made NPO this am after surgeons visit .?18 G sL was placed in the right a/c. ? SL was replaced and IV antibiotics was given. ? replaced the?nicotine patch. ? she still has discomfort with voiding.? she has white patches to her tongue, meds started..? ? IV is patent.?LR 2 75 after surgery. Pt denies any dizziness/lightheadedness.? laps site x4. with steri strips. IV antibiotics. teds, plexi IS and active ice used. she is taking in ice chips and sips of water. she has been up 2 times to void after surgery. she has tremors to her legs after surgery. she said she felt high after surgery and was 84% on RA.. on @ 2L nc was initiated SL in left wrist was patent.
[2022-07-01] MEDS: 0.9 % SODIUM CHLORIDE 250 ml IV (21:24)
[2022-07-02] MEDS: LACTATED RINGERS 1000 ML 1,000 ML 125 ML IV (00:39)
[2022-07-02] MEDS: OXYCODONE 5 MG TABLET PO ×3 (02:27→14:35)
[2022-07-02] MEDS: PIPERACILLIN/TAZOBACTAM 3.375 GM in 0.9 % SODIUM CHLORIDE Mini-bag 100 ML IVPB ×3 (02:32→14:29)
[2022-07-02 02:37] VITALS: BP 106/55; PULSE 65; RESP 16; TEMP 37.3; O2SAT 91
--- NOTE | 2022-07-02 05:57 | PC.NURSE ---
Shift Note -: Pt pleasant and cooperative, VSS, afebrile. BS hypoactive, pt concerned with lack of BM, Pt ed provided on post-op bowel function expectations and opioid use related constipation. Pt up to BR with SBA, gait steady. 4 ABD lap sites CDI, Pt ed provided on post-op showering. PIV in left wrist removed, dressing applied. PIV in right AC intact, patent and asymptomatic. Pt successfully transitioned to PO pain medication, Pt ed provided on differences between IV and PO medication and pain control. Pt able to sleep soundly for the majority of the night. Pt tolerated 2 ensure shakes throughout this shift. See eMAR for medication administration.
[2022-07-02 06:47] LABS: Basophils Absolute Auto 0.03 K/uL (0.00-0.30); Basophils Percent Auto 0.3 % (0.0-3.0); Eosinophils Absolute Auto 0.05 K/uL (0.00-0.50); Eosinophils Percent Auto 0.6 % (0.0-7.0); Hematocrit 34.8 % (33.0-51.0); Hemoglobin* 11.5 gm/dL (12.0-16.0); Immature Granulocytes Abs Auto 0.04 K/uL (0.00-0.30); Lymphocytes Absolute Auto 2.12 K/uL (0.90-2.90); Lymphocytes Percent Auto 23.5 % (20-44); Mean Corpuscular HGB Conc 33 gm/dL (32-36); Mean Corpuscular Hemoglobin 30 pg (26-34); Mean Corpuscular Volume 91 fL (80-100); Neutrophils Absolute Auto 5.81 K/uL (1.7-7.0); Neutrophils Percent Auto 64.2 % (42.0-72.0); Platelet Count* 187 K/uL (140-440); RDW Coefficient of Variation % 13.4 % (11.5-15.5); Red Blood Count 3.84 m/uL (4.00-5.20); White Blood Count* 9.04 K/uL (4.50-11.00)
[2022-07-02 06:54] LABS: Slide Review Reflex No
[2022-07-02 07:00] VITALS: BP 168/69; PULSE 62; RESP 16; TEMP 37; O2SAT 91
[2022-07-02 07:08] LABS: Albumin* 3.2 g/dL (3.3-5.0); Chloride* 102 mmol/L (96-114); Sodium* 137 mmol/L (135-149)
[2022-07-02 07:09] LABS: Potassium* 3.7 mmol/L (3.6-5.1)
[2022-07-02 07:11] LABS: Alanine Aminotransferase* 118 U/L (4-35); Alkaline Phosphatase* 189 U/L (40-150); Aspartate Amino Transferase* 65 U/L (12-35); Bilirubin Direct* 0.2 mg/dL (0.0-0.5); Bilirubin Total* 0.3 mg/dL (0.1-1.5); Blood Urea Nitrogen* 11 mg/dL (7-30); Carbon Dioxide* 30 mmol/L (20-32); Creatinine* 0.8 mg/dL (0.5-1.5); Est. Creatinine Clearance* 49.72; Estimated Glomerular Filt Rate 83 ml/min; Glucose* 113 mg/dL (60-115); Total Protein* 5.6 g/dL (6.0-8.3)
[2022-07-02] MEDS: SUCRALFATE 1 GM TABLET PO (07:48)
--- NOTE | 2022-07-02 08:13 | PM.GSPN ---
Subjective Subjective Date Seen: 07/02/22 Interval history: Weston is doing well. No nausea. She feels better than before surgery but is sore at her incision sites. Exam Narrative: Exam Narrative: General: No acute distress CV: Regular rate and rhythm Abdomen: Soft, mildly distended. Incisions are clean and dry without erythema. Appropriately tender for the postop state. Const: Vital Signs, click to edit/add: Vital Signs - 24 hr 07/01/22 11:09 07/01/22 15:19 07/01/22 15:25 Temperature 99.0 F 98.8 F Pulse Rate 84 78 Pulse Rate [Right Pulse Oximeter] 58 L Respiratory Rate 16 16 16 Blood Pressure 126/62 131/73 Blood Pressure [Ri ght Arm] 113/79 Pulse Oximetry 95 97 97 Oxygen Delivery Me thod Room Air Aerosol Mask Aerosol Mask Oxygen Flow Rate 10 10 07/01/22 15:30 07/01/22 15:35 07/01/22 15:40 Temperature Pulse Rate 79 75 74 Pulse Rate [Right Pulse Oximeter] Respiratory Rate 14 14 14 Blood Pressure 129/66 132/78 134/71 Blood Pressure [Ri ght Arm] Pulse Oximetry 98 98 98 Oxygen Delivery Me thod Aerosol Mask Aerosol Mask Oxygen Flow Rate 10 10 07/01/22 15:55 07/01/22 16:00 07/01/22 15:45 Temperature Pulse Rate 71 71 73 Pulse Rate [Right Pulse Oximeter] Respiratory Rate 16 14 14 Blood Pressure 121/76 114/63 124/68 Blood Pressure [Ri ght Arm] Pulse Oximetry 95 91 98 Oxygen Delivery Me thod Room Air Blow By Aerosol Mask Oxygen Flow Rate 10 10 07/01/22 15:50 07/01/22 16:05 07/01/22 16:28 Temperature 98.4 F 96.5 F L Pulse Rate 72 68 68 Pulse Rate [Right Pulse Oximeter] Respiratory Rate 14 14 14 Blood Pressure 136/71 127/64 Blood Pressure [Ri ght Arm] 105/66 Pulse Oximetry 99 93 Oxygen Delivery Me thod Aerosol Mask Blow By Room Air Oxygen Flow Rate 10 10 07/01/22 16:28 07/01/22 16:32 07/01/22 16:47 Temperature 96.5 F L 96.5 F L 96.5 F L Pulse Rate Pulse Rate [Right Pulse Oximeter] 70 69 68 Respiratory Rate 14 14 16 Blood Pressure Blood Pressure [Ri ght Arm] 105/66 107/74 123/74 Pulse Oximetry 91 90 91 Oxygen Delivery Me thod Room Air Room Air Room Air Oxygen Flow Rate 10 07/01/22 16:20 07/01/22 16:00 07/01/22 16:15 Temperature 96.5 F L Pulse Rate Pulse Rate [Right Pulse Oximeter] 70 71 68 Respiratory Rate 14 14 14 Blood Pressure Blood Pressure [Ri ght Arm] 105/66 117/71 119/78 Pulse Oximetry 91 85 L 93 Oxygen Delivery Me thod Room Air Room Air Nasal Can nula Nasal Cannula Oxygen Flow Rate 2 2 07/01/22 17:46 07/01/22 17:30 07/01/22 18:00 Temperature Pulse Rate Pulse Rate [Right Pulse Oximeter] 69 70 72 Respiratory Rate 14 16 14 Blood Pressure Blood Pressure [Ri ght Arm] 123/74 115/70 116/73 Pulse Oximetry 92 93 97 Oxygen Delivery Me thod Nasal Cannula Nasal Cannula Nasal Cannula Oxygen Flow Rate 2 2 2 07/01/22 18:15 07/01/22 18:00 07/01/22 19:30 Temperature 97.0 F L Pulse Rate Pulse Rate [Right Pulse Oximeter] 73 72 79 Respiratory Rate 16 16 Blood Pressure Blood Pressure [Ri ght Arm] 125/73 116/73 133/76 Pulse Oximetry 97 97 Oxygen Delivery Me thod Nasal Cannula Nasal Cannula Nasal Cannula Oxygen Flow Rate 2 2 2 07/01/22 20:00 07/01/22 23:39 07/01/22 23:39 Temperature 97.0 F L 98.0 F Pulse Rate Pulse Rate [Right Pulse Oximeter] 85 85 82 Respiratory Rate 16 16 16 Blood Pressure Blood Pressure [Ri ght Arm] 121/75 116/68 Pulse Oximetry 94 94 Oxygen Delivery Me thod Room Air Nasal Cannula Oxygen Flow Rate 2 07/02/22 02:37 Temperature 99.1 F Pulse Rate Pulse Rate [Right Pulse Oximeter] 65 Respiratory Rate 16 Blood Pressure Blood Pressure [Ri ght Arm] 106/55 L Pulse Oximetry 91 Oxygen Delivery Me thod Room Air Oxygen Flow Rate Labs/Imaging Labs Labs: White blood cell count is normal. LFTs are trending down. Progress Note: A&P Assessment and plan (1) Bacteremia due to Gram-negative bacteria: Problem details: source unclear. cipro sensitive; dc cipro 9/18 d/t oral thrush and patient request, change to zosyn 07/02. nystatin ordered for thrush Status: Acute (2) Cholecystitis: Status: Acute Plan The patient is a 62-year-old female who is now status post laparoscopic cholecystectomy for intraoperative cholangiogram for acalculous cholecystitis and gram-negative bacteremia. From a surgical standpoint she is safe to discharge home today. Recommendations for follow-up antibiotics per hospitalist. She has been provided with a list of instructions for follow-up. If she remains inpatient, okay to restart heparin and advanced diet.
[2022-07-02 08:25] VITALS: BP 128/69; PULSE 62; PULSE 65; RESP 16; TEMP 37; O2SAT 91
[2022-07-02] MEDS: HEPARIN 5,000 UNIT/0.5 ML INJ 5000 UNIT SUBCUT (08:35)
[2022-07-02] MEDS: ACETAMINOPHEN 325 MG TABLET 650 MG PO (08:36)
[2022-07-02] MEDS: polyethylene glycoL 3350 17 GM PACK PO (08:37)
[2022-07-02] MEDS: PARoxetine 20 MG TABLET 30 MG PO (08:38)
[2022-07-02] MEDS: PANTOPRAZOLE SODIUM 40 MG INJ IVP (08:42)
--- NOTE | 2022-07-02 10:07 | PM.DS1 ---
DS: Providers Provider Date Seen: 07/02/22 Date of admission: 06/28/22 14:04 Primary care physician: Max Maxwell MD Admitting Clinician: Sonia Hensley MD Consults: 07/01/22 10:29 Consult to Physician [CONS] Routine Comment: cholecystitis Consulting Provider: Fabby Natarajan Has provider been notified: Yes Attending Physician on discharge: Jw Grant MD Date of Discharge: 07/02/22 DS: Diagnosis Discharge Diagnosis (1) Cholecystitis: Status: Acute (2) Bacteremia due to Gram-negative bacteria: Status: Acute Problem details: Ecoli Bacteremia. initially treated with zosyn then transitioned to Cipro. dc cipro 07/01 d/t oral thrush and patient request, change to zosyn 07/01. Will discharge on Augmentin for 7 day treatment (3) Transaminitis: Status: Acute Problem details: ruq u/s showing no gallstones, mild GB contraction. Underwent Lap halie on 07/01 (4) Multiple sclerosis: Status: Acute Problem details: Diagnosed many years ago. Previously was on disease modifying medications. Has been off these medications for several years. Last saw neurologist 1-2 years ago. (5) SOB (shortness of breath): Status: Acute Problem details: Resolved. not hypoxic; not tachycardic; no CP, given lasix X1 with resolution of symptoms. Will need outpatient PFTs and sleep study (6) Tobacco dependence: Status: Acute Problem details: Nicotine support offered. (7) Anxiety disorder, unspecified: Status: Acute Problem details: Fluoxetine. P.r.n. Ativan. DS: Summary Hospital Course Hospital Course: This is a 62F who presented to ED for evaluation of abdominal pain. She was found to have Ecoli Bacteremia. She had elevated LFTs and underwent Lap Halie on 07/01. She tolerated the surgery well. She was treated with IV antibiotic therapy (Zosyn->cipro->Zosyn) and transitioned to Augmentin at discharge. She will need outpatient follow up with PCP for f/u, referral for sleep study, PFTs, follow up pending Blood Cx. May condsider Cardiology referral for PFO at discretion of Primary care provider. Hepatitis Serologies pending at time of discharge and will need to be followed up by PCP. TTE 1. Normal EF, normal systolic function 2. No aortic stenosis or regurgitation 3. mild/moderate MR 4. Possible left to right atrial level shunt most consistent with PFO Time Spent with Patient Time attestation: Total time spent providing and/or coordinating discharge services: Time spent: Greater than 30 minutes Exam Narrative: Exam Narrative: Gen: No acute distress HEENT: NCAT EOMI MMM CV: RRR normal s1 s2 Lungs: CTAB Abd: Soft, nt, nd, surgical site c/d/i Neuro: AOX3; nonfocal screening exam?? Const: Vital Signs, click to edit/add: Vital Signs - 24 hr 07/01/22 11:09 07/01/22 15:19 07/01/22 15:25 Temperature 99.0 F 98.8 F Pulse Rate 84 78 Pulse Rate [Right Pulse Oximeter] 58 L Respiratory Rate 16 16 16 Blood Pressure 126/62 131/73 Blood Pressure [Ri ght Arm] 113/79 Pulse Oximetry 95 97 97 Oxygen Delivery Me thod Room Air Aerosol Mask Aerosol Mask Oxygen Flow Rate 10 10 07/01/22 15:30 07/01/22 15:35 07/01/22 15:40 Temperature Pulse Rate 79 75 74 Pulse Rate [Right Pulse Oximeter] Respiratory Rate 14 14 14 Blood Pressure 129/66 132/78 134/71 Blood Pressure [Ri ght Arm] Pulse Oximetry 98 98 98 Oxygen Delivery Me thod Aerosol Mask Aerosol Mask Oxygen Flow Rate 10 10 07/01/22 15:55 07/01/22 16:00 07/01/22 15:45 Temperature Pulse Rate 71 71 73 Pulse Rate [Right Pulse Oximeter] Respiratory Rate 16 14 14 Blood Pressure 121/76 114/63 124/68 Blood Pressure [Ri ght Arm] Pulse Oximetry 95 91 98 Oxygen Delivery Me thod Room Air Blow By Aerosol Mask Oxygen Flow Rate 10 10 07/01/22 15:50 07/01/22 16:05 07/01/22 16:28 Temperature 98.4 F 96.5 F L Pulse Rate 72 68 68 Pulse Rate [Right Pulse Oximeter] Respiratory Rate 14 14 14 Blood Pressure 136/71 127/64 Blood Pressure [Ri ght Arm] 105/66 Pulse Oximetry 99 93 Oxygen Delivery Me thod Aerosol Mask Blow By Room Air Oxygen Flow Rate 10 10 07/01/22 16:28 07/01/22 16:32 07/01/22 16:47 Temperature 96.5 F L 96.5 F L 96.5 F L Pulse Rate Pulse Rate [Right Pulse Oximeter] 70 69 68 Respiratory Rate 14 14 16 Blood Pressure Blood Pressure [Ri ght Arm] 105/66 107/74 123/74 Pulse Oximetry 91 90 91 Oxygen Delivery Me thod Room Air Room Air Room Air Oxygen Flow Rate 10 07/01/22 16:20 07/01/22 16:00 07/01/22 16:15 Temperature 96.5 F L Pulse Rate Pulse Rate [Right Pulse Oximeter] 70 71 68 Respiratory Rate 14 14 14 Blood Pressure Blood Pressure [Ca ght Arm] 105/66 117/71 119/78 Pulse Oximetry 91 85 L 93 Oxygen Delivery Me thod Room Air Room Air Nasal Can nula Nasal Cannula Oxygen Flow Rate 2 2 07/01/22 17:46 07/01/22 17:30 07/01/22 18:00 Temperature Pulse Rate Pulse Rate [Right Pulse Oximeter] 69 70 72 Respiratory Rate 14 16 14 Blood Pressure Blood Pressure [Ca ght Arm] 123/74 115/70 116/73 Pulse Oximetry 92 93 97 Oxygen Delivery Me thod Nasal Cannula Nasal Cannula Nasal Cannula Oxygen Flow Rate 2 2 2 07/01/22 18:15 07/01/22 18:00 07/01/22 19:30 Temperature 97.0 F L Pulse Rate Pulse Rate [Right Pulse Oximeter] 73 72 79 Respiratory Rate 16 16 Blood Pressure Blood Pressure [Ca ght Arm] 125/73 116/73 133/76 Pulse Oximetry 97 97 Oxygen Delivery Me thod Nasal Cannula Nasal Cannula Nasal Cannula Oxygen Flow Rate 2 2 2 07/01/22 20:00 07/01/22 23:39 07/01/22 23:39 Temperature 97.0 F L 98.0 F Pulse Rate Pulse Rate [Right Pulse Oximeter] 85 85 82 Respiratory Rate 16 16 16 Blood Pressure Blood Pressure [Ri ght Arm] 121/75 116/68 Pulse Oximetry 94 94 Oxygen Delivery Me thod Room Air Nasal Cannula Oxygen Flow Rate 2 07/02/22 02:37 07/02/22 07:00 07/02/22 07:00 Temperature 99.1 F 98.6 F Pulse Rate Pulse Rate [Right Pulse Oximeter] 65 62 Respiratory Rate 16 16 16 Blood Pressure Blood Pressure [Ri ght Arm] 106/55 L 168/69 H Pulse Oximetry 91 91 Oxygen Delivery Me thod Room Air Oxygen Flow Rate 07/02/22 08:25 07/02/22 08:25 Temperature 98.6 F Pulse Rate Pulse Rate [Right Pulse Oximeter] 65 62 Respiratory Rate 16 16 Blood Pressure Blood Pressure [Ri ght Arm] 128/69 Pulse Oximetry 91 Oxygen Delivery Me thod Room Air Oxygen Flow Rate 2 DS: Data Data Completed and Pending Labs on day of discharge: Labs from last 24 hours 07/02/22 07/02/22 07/01/22 06:27 06:27 08:47 WBC 9.04 RBC 3.84 L Hgb 11.5 L Hct 34.8 MCV 91 MCH 30 MCHC 33 RDW Coeff of Mauricio 13.4 Plt Count 187 Neut % (Auto) 64.2 Lymph % (Auto) 23.5 [place] % (Auto) 11.0 Eos % (Auto) 0.6 Baso % (Auto) 0.3 Neut # (Auto) 5.81 Lymph # (Auto) 2.12 [place] # (Auto) 1.00 H Eos # (Auto) 0.05 Baso # (Auto) 0.03 Abs Immat Gran (auto) 0.04 Sodium 137 Potassium 3.7 Chloride 102 Carbon Dioxide 30 BUN 11 Creatinine 0.8 Estimated Creat Clear 49.72 Estimated GFR 83 Glucose 113 Calcium 9.0 Total Bilirubin 0.3 Direct Bilirubin 0.2 AST 65 H ALT 118 H Alkaline Phosphatase 189 H Total Protein 5.6 L Albumin 3.2 L Urine Color Yellow Urine Appearance Clear Urine pH 8.5 Ur Specific [place] 1.010 Urine Protein Negative Urine Glucose (UA) Negative Urine Ketones Negative Urine Blood Trace-intact A Urine Nitrite Negative Urine Bilirubin Negative Urine Urobilinogen 0.2 Ur Leukocyte Esterase Negative Urine RBC 0-2 Urine WBC 0-2 Ur Squamous Epith Cells Few Urine Bacteria None Preliminary micro results at discharge 06/28/22 09:50 Blood Culture - Preliminary Blood NO GROWTH AFTER 96 HOURS 06/28/22 10:15 Blood Culture - Preliminary Blood NO GROWTH AFTER 72 HOURS Discharge Plan Discharge Disposition: Home, Self-Care Date of Admission: 06/28/22 14:04 Attending Provider on Discharge: Jw Grant Consulting Providers: Fabby Natarajan Primary Care Provider: Max Maxwell Condition: Improved Anticipated Discharge Date/Time: 07/02/22 16:00 Discharge Medications: New oxycodone 5 mg Tablet 5 mg PO Q6H PRNQty: 14 0RF amoxicillin-pot clavulanate 875-125 mg tablet 1 tab PO BID Qty: 14 0RF Rx Instructions: Take 1 tablet at 8am with breakfast and 8pm with food for 7 days starting 07/03 Continued paroxetine HCl [Paxil] 30 mg tablet 30 mg PO QDAY Qty: 90 2RF alprazolam [Xanax] 0.25 mg tablet 0.25 - 0.5 mg PO HS PRN (Reason: sleep) Discharge Orders: Discharge Order (Routine); Ordered 07/02/22 Ordered By: Jw Grant Patient Education: Amoxicillin/Clavulanate Potassium (By mouth), Oxycodone, Rapid Release (By mouth), General Anesthesia (DC), Laparoscopic Cholecystectomy (DC), Post-Operative Instructions: Laparoscopic Cholecystectomy Activity Restrictions/Additional Instructions: Wound care: Your sutures are under the skin and will dissolve over time. Leave steri strips (white bandages) over incisions until they fall off (or remove after 7 days). OK to shower but avoid bathing, soaking or swimming for 2 weeks. Pat the incisions dry. No need to wash or scrub the area. Apply ice to the area as needed for swelling. It is also OK to use a heating pad if this provides more comfort to you. Pain control: You were prescribed a pain medication. This medication contains acetaminophen (Tylenol). If you are taking your prescribed pain pills 4 times daily, do not take additional acetaminophen. As your pain improves, you can try taking acetaminophen instead of the prescribed pain pill. It is ok to take Ibuprofen or Naproxen (per directions on packaging). This medication helps with inflammation and swelling. Take an [id number] stool softener while you are taking prescribed pain medications to help alleviate constipation. I recommend Senna and/or Colace. Take as directed on package. If you have not had a bowel movement in 3 days, try taking Miralax as directed on the package. All of these are available over the counter. Follow-up Follow up with Dr. Natarajan in 2-3 weeks Please call if you are experiencing severe pain, nausea, vomiting, difficulty urinating, fever or have not had bowel movement in 4 days after surgery. Activity Level: Activity as Tolerated Discharge Diet: Regular Follow Up Appointments: Max Maxwell MD [Primary Care Provider] - (PCP unavailable) Fabby Natarajan MD [Staff Physician] - 07/25/22 2:00 pm ([facility]) Ariana Rodriguez MD [Staff Physician] - 07/05/22 10:00 am Forms: [employer] Info Instructions Discharge Comments: Outpatient PCP Follow Up 1) Outpatient PFTs 2) Outpatient Sleep study 3) follow up blood cultures 4) Consider outpatient Cardiology referral 5) Follow up hepatitis serologies
[2022-07-02] MEDS: NICOTINE 21 MG PATCH 1 PATCH TRANSDERMA (14:30)
--- NOTE | 2022-07-02 15:28 | PC.NURSE ---
PATIENT PLEASANT AND COOPERATIVE, UP AD DOLORES WITH STEADY GAIT, PATIENT DID EXPRESS SOME DIZZINESS WITH AMBULATION THIS MORNING, TOLERATED WALKING WITH STAFF IN HALLWAYS WITH SBA ONLY NO ASSISTIVE DEVICES, RATING PAIN IN ABDOMEN 5-10 BEING MANAGED WITH PRN OXYCODONE AND TYLENOL, ACTIVE ICE TO SITE, LAP SITES INTACT, BANDAGES FOR MINIMAL DRAINAGE, TOLERATING REGULAR DIET NO NAUSEA, DISCHARGED TO HOME WITH SIGNIFICANT OTHER, PATIENT VERBALIZED UNDERSTANDING OF DISCHARGE INFORMATION AND HAD NO FURTHER QUESTIONS AT THIS TIME, LEFT AROUND 1515.
[2022-07-03 18:15] LABS: Hepatitis B Core Antibody, IgM Negative (Negative); Hepatitis B Surface Antigen Negative (Negative); Hepatitis C Antibody by CIA Negative (Negative)
== END 2022-07-02 15:15 | disposition home or self-care (01) | DRG 418 ==
LOC: ED 12:44 → MEDSURG 12:58
PROVIDERS: Hospitalist; Surgery; Admitting Provider Family Medicine; Emergency Provider Family Medicine; PCP Family Medicine; Visit Provider Family Medicine
PROC: 0FT44ZZ Resection of Gallbladder, Percutaneous Endoscopic Approach (ICD-10-PCS; CPT 47563; principal; 2022-07-01 13:00)
DX: K81.0 Acute cholecystitis (principal); R78.81 Bacteremia; B37.0 Candidal stomatitis; K81.1 Chronic cholecystitis; B96.20 Unspecified Escherichia coli [E. coli] as the cause of diseases classified elsewhere; G35 Multiple sclerosis; F41.9 Anxiety disorder, unspecified; F17.210 Nicotine dependence, cigarettes, uncomplicated; R74.01 Elevation of levels of liver transaminase levels
CPT/HCPCS: 36415; 51798; 71046; 71260; 74177; 74300; 76705; 790; 80048; 80053; 80074; 80076; 81001; 81003; 81015; 82330; 82803; 82977; 83605; 83690; 83735; 83880; 84145; 84443; 84484; 85025; 85027; 85610; 86140; 87040; 87086; 87186; 87502; 87631; 87634; 87635; 88304; 93005; 93306; 93307; 94640; 94664; 99284; 99285; A9270; C9113; J0330; J0690; J0744; J1100; J1170; J1200; J1644; J1885; J1940; J2175; J2405; J2543; J2704; J3010; J3490; J7030; J7050; J7120; J7626; Q9967; S4990

== ENCOUNTER 2022-07-05 10:24 | Outpatient (CLI) | payer OTHER, SELFPAY ==
[2022-07-05 22:04] LABS: C Reactive Protein* 1.2 mg/dL (0.5-1.0)
== END 2022-07-05 10:25 | disposition home or self-care (01) ==
PROVIDERS: PCP Family Medicine; Visit Provider Emergency Medicine
DX: R35.0 Frequency of micturition (principal); R78.81 Bacteremia
CPT/HCPCS: 86140; 87040; 87086

== ENCOUNTER 2022-11-16 10:46 | Outpatient (CLI) | payer OTHER, SELFPAY ==
[2022-11-16 15:29] LABS: Albumin* 4.3 g/dL (3.3-5.0)
[2022-11-16 15:31] LABS: Bilirubin Direct* 0.3 mg/dL (0.0-0.5); Bilirubin Total* 0.5 mg/dL (0.1-1.5); Total Protein* 6.8 g/dL (6.0-8.3)
[2022-11-16 15:32] LABS: Alanine Aminotransferase* 15 U/L (4-35); Alkaline Phosphatase* 67 U/L (40-150); Aspartate Amino Transferase* 24 U/L (12-35)
== END 2022-11-16 10:47 | disposition home or self-care (01) ==
LOC: LKVREF 10:49
PROVIDERS: PCP Family Medicine; Visit Provider Family Medicine
DX: F41.9 Anxiety disorder, unspecified (principal); R79.89 Other specified abnormal findings of blood chemistry
CPT/HCPCS: 80076

== ENCOUNTER 2023-08-22 14:55 | Emergency (ER) | payer OTHER, SELFPAY ==
[2023-08-22 15:08] VITALS: BP 112/73; PULSE 67; RESP 20; TEMP 37.1; O2SAT 98; BMI 24.0
--- NOTE | 2023-08-22 16:32 | ED_ITS ---
HPI - Allergic Reaction General Date Seen: 08/22/23 Chief complaint: Allergic Reaction Stated complaint: covid + Time Seen by Provider: 08/22/23 15:42 Source: patient Mode of arrival: ambulatory Limitations: no limitations History of Present Illness HPI narrative: Patient is a 63-year-old female presents emergency department for an apparent allergic reaction 2 packs of it. She was started pack of it yesterday after tested positive for COVID. She took her 1st dose this morning. Less than an hour after she took her 1st dose she developed abdominal pain, nausea/vomiting and felt like her throat was tightening up in scan hard to breathe. She came to the emergency department. A time-out was able to see her in the emergency department symptoms have fully resolved she states she is feeling better. She states she initially get checked because of issues she was having full body aches but those symptoms have since resolved. Denies nausea at this time. Denies fevers, chills, headache, vision changes, weakness, numbness. Related Data Previous Rx's Medication Instructions Recorded paroxetine HCl 30 mg tablet (Paxil) See Rx Instructions PO QDAY #90 11/16/22 tabs colesevelam 625 mg tablet (WelChol) 1,250 mg (2 x 625 mg) PO BID #120 12/17/22 tabs colesevelam 625 mg tablet 625 mg PO QDAY #90 tabs 03/05/23 alprazolam 0.25 mg tablet (Xanax) 0.25 - 0.5 mg (1 - 2 x 0.25 mg) PO 06/04/23 HS PRN sleep #30 tabs amoxicillin 250 mg-potassium 17.5 ml PO BID 10 days #350 mL 08/14/23 clavulanate 62.5 mg/5 mL oral suspension (Augmentin) nirmatrelvir 300 mg (150 mg See Rx Instructions PO .COMPLEX 08/22/23 x2)-ritonavir 100 mg tablet,dose #30 ea pack (Paxlovid) Allergies Allergy/AdvReac Type Severity Reaction Status Date / Time prochlorperazine Allergy Irritable Verified 08/14/23 16:40 Sulfa (Sulfonamide Allergy Verified 08/14/23 16:40 Antibiotics) cephalexin AdvReac Intermediate Verified 08/14/23 16:40 oxycodone Allergy nausea and Uncoded 08/19/23 16:12 vomiting hydrocodone AdvReac nausea and Uncoded 08/19/23 16:12 vomiting Review of Systems Status of ROS Reports: 10 or more systems reviewed and unremarkable except as noted in History and below [facility] Medical History Hepatic cyst ?K76.89 - Other specified diseases of liver (ICD-10) Hx of chest pain ?Z87.898 - Personal history of other specified conditions (ICD-10) Psoriasis ?L40.9 - Psoriasis, unspecified (ICD-10) Non-melanoma skin cancer ?C44.90 - Unspecified malignant neoplasm of skin, unspecified (ICD-10) Well adult on routine health check ?Z00.00 - Encounter for general adult medical examination without abnormal findings (ICD-10) Depression with anxiety ?F41.8 - Other specified anxiety disorders (ICD-10) Hypercholesteremia ?E78.00 - Pure hypercholesterolemia, unspecified (ICD-10) Elevated LFTs ?R79.89 - Other specified abnormal findings of blood chemistry (ICD-10) Constipation ?K59.00 - Constipation, unspecified (ICD-10) Hypoxia, sleep related ?G47.34 - Idiopathic sleep related nonobstructive alveolar hypoventilation (ICD-10) Mitral valve regurgitation ?I34.0 - Nonrheumatic mitral (valve) insufficiency (ICD-10) Urinary frequency ?R35.0 - Frequency of micturition (ICD-10) Tobacco dependence ?F17.200 - Nicotine dependence, unspecified, uncomplicated (ICD-10) Bacteremia due to Gram-negative bacteria ?R78.81 - Bacteremia (ICD-10) Multiple sclerosis ?G35 - Multiple sclerosis (ICD-10) Anxiety disorder, unspecified ?F41.9 - Anxiety disorder, unspecified (ICD-10) Surgical History Hx of cholecystectomy ?Z90.49 - Acquired absence of other specified parts of digestive tract (ICD- 10) History of sinus surgery ?Z98.890 - Other specified postprocedural states (ICD-10) History of appendectomy ?Z90.49 - Acquired absence of other specified parts of digestive tract (ICD- 10) Family History Other Adopted Social History Narrative: Smoker, no significant alcohol history. She is disabled secondary to MS. Highest level of school completed/degree received: high school graduate Smoking Status: Current every day smoker What tobacco products do you use: cigarettes Smoking packs per day: 1 Smoking cigarettes per day: 20.0 Years smoked: 50 Smoking pack-years: 50.00 Smoking quit date/years: <= 15 years ago Do you use any of these nicotine containing products: None Second hand tobacco smoke exposure: No How often do you have a drink containing alcohol: monthly or less Alcohol type: hard liquor How many standard drinks containing alcohol do you have on a typical day: 1 or 2 How often do you have six or more drinks on one occasion: Never AUDIT-C Alcohol total score: 1 Non-prescribed substance use: denies use Caffeine: Yes Little interest or pleasure in doing things: several days Feeling down, depressed, or hopeless: several days service: No Exam Narrative: Exam Narrative: Const: Well-nourished, Well-developed, in no distress Eyes: PERRL, no conjunctival injection, and symmetrical lids HENT: Atraumatic external nose and ears. Moist mucous membranes. Tympanic membranes and external auditory ear canals normal bilaterally Neck: Symmetric, trachea midline, No thyromegaly. CVS: RRR, No murmurs or gallops. Peripheral pulses 2+ and equal in all extremities RESP: Unlabored respiratory effort. Clear to auscultation bilaterally. GI: Nontender/Nondistended, No rebound or guarding. MSK:Extremities w/o deformity, Normal Active ROM Skin: Warm, Dry. No rashes or lesions. Neuro: Normal Muscle tone, No focal neurological deficits. Psych: Awake, Alert, & Oriented x3. Appropriate mood and affect. Const: Vital Signs, click to edit/add: Vital Signs - 24 hr 08/22/23 15:08 Temperature 98.8 F Pulse Rate [Pulse Oximeter] 67 Respiratory Rate 20 Blood Pressure [Ri ght Upper Arm] 112/73 Pulse Oximetry 98 Oxygen Delivery Me thod Room Air Course Vital Signs Vital signs: Initial Vital Signs Temperature 98.8 F 08/22/23 15:08 Temperature Source Temporal Artery Scan 08/22/23 15:08 Pulse Rate 67 08/22/23 15:08 Pulse Rhythm Regular 08/22/23 15:08 Respiratory Rate 20 08/22/23 15:08 Blood Pressure 112/73 08/22/23 15:08 Blood Pressure Mean 86 08/22/23 15:08 Blood Pressure Position Sitting 08/22/23 15:08 Pulse Oximetry 98 08/22/23 15:08 Oxygen Delivery Method Room Air 08/22/23 15:08 Vital Signs Temperature 98.8 F 08/22/23 15:08 Pulse Rate 67 08/22/23 15:08 Respiratory Rate 20 08/22/23 15:08 Blood Pressure 112/73 08/22/23 15:08 Pulse Oximetry 98 08/22/23 15:08 Oxygen Delivery Method Room Air 08/22/23 15:08 Temperature 98.8 F 08/22/23 15:08 Pulse Rate 67 08/22/23 15:08 Respiratory Rate 20 08/22/23 15:08 Blood Pressure 112/73 08/22/23 15:08 Pulse Oximetry 98 08/22/23 15:08 Oxygen Delivery Method Room Air 08/22/23 15:08 MDM - Allergic Reaction MDM Narrative Medical decision making narrative: Patient 63-year-old female presenting emergency department for apparent allergic reaction to Paxlovid. Symptoms have now fully resolved. She states her throat does not feel tight at all anymore she is no longer feeling nauseated. She is stating that her ears feel full. I looked in her ears and they were clear with no signs of infection. There is no cerumen buildup in the ears. I offered her steroids for an allergic reaction she states she feels well at this time and does not want them. Since she has been asymptomatic entire time my have been seen here again not significantly there is any anaphylaxis or not. She had no swelling or rashes on her skin. Her vitals are completely stable and she looks well. She will be discharged home and she is agreeable to this plan Discharge Plan Discharge Clinical Impression: Allergic reaction Patient Disposition: Home, Self-Care Condition: Stable Instructions: General Allergic Reaction (ED) Additional Instructions: Follow-up with the primary care provider symptoms continue. Return to emergency department for new or worsening symptoms. Activity Level: No Restrictions Discharge Diet: Regular Prescriptions: No Action paroxetine HCl [Paxil] 30 mg tablet See Rx Instructions PO QDAY Qty: 90 2RF Rx Instructions: 15-30 mg orally every day; colesevelam 625 mg tablet 625 mg PO QDAY Qty: 90 3RF alprazolam [Xanax] 0.25 mg tablet 0.25 - 0.5 mg PO HS PRN (Reason: sleep) Qty: 30 0RF amoxicillin-pot clavulanate [Augmentin] 250-62.5 mg/5 mL suspension for reconstitution 17.5 ml PO BID 10 Days Qty: 350 0RF colesevelam [WelChol] 625 mg tablet 1,250 mg PO BID Qty: 120 3RF Paxlovid 300 mg (150 mg x 2)-100 mg tablets,dose pack See Rx Instructions PO .COMPLEX Qty: 30 0RF Rx Instructions: take TWO 150 mg tablets of nirmatrelvir with ONE 100 mg tablet of ritonavir twice daily for 5 days orally; Follow Up/Referrals: Max Maxwell MD [Primary Care Provider] - Stand Alone Forms: [facility] Info Instructions
== END 2023-08-22 16:40 | disposition home or self-care (01) ==
PROVIDERS: Emergency Provider Student in an Organized Health Care Education/Training Program; PCP Family Medicine
DX: R11.0 Nausea (principal); M79.10 Myalgia, unspecified site; T37.5X5A Adverse effect of antiviral drugs, initial encounter
CPT/HCPCS: 99282; 99283

== ENCOUNTER 2023-11-09 13:09 | Emergency (ER) | payer OTHER, SELFPAY ==
[2023-11-09 13:23] VITALS: BP 93/62; PULSE 83; RESP 18; TEMP 37.1; BMI 23.2
--- NOTE | 2023-11-09 13:36 | ED.GENADULT ---
HPI - General Adult General Date Seen: 11/09/23 Chief complaint: Abdominal Pain Stated complaint: Diverticulitis Time Seen by Provider: 11/09/23 13:25 History of Present Illness HPI narrative: This is a pleasant 63-year-old female with a past medical history of MS, psoriasis, elevated cholesterol, abnormal LFTs, mitral regurgitation, depression/anxiety, tobacco use, who presents to the ER today for left lower quadrant abdominal pain. She be developed symptoms yesterday afternoon and evening with pain in her left lower quadrant. He has also had a little bit of nausea with 1 episode of nonbilious, nonbloody emesis overnight and again this morning. She also had 1 small volume episode of diarrhea this morning (nonbloody, no mucus. No recent black stools. No fever or chills. She feels like her pain is crampy. It was quite intense earlier but is less painful now. It reminds her of a previous episode of diverticulitis for which she was treated with a course of antibiotics approximately 2 years ago. She has had previous cholecystectomy and appendectomy. She did not require surgery for her diverticulitis. She has also noted some urinary frequency for the past few days and wonders if she might have a bladder infection. She intends to go on a trip to [place] with her family, leaving in 5 days, on , and is worried that if she is developing diverticulitis she wants to get it treated so she can be over it before she leaves. Related Data Previous Rx's Medication Instructions Recorded paroxetine HCl 30 mg tablet (Paxil) See Rx Instructions PO QDAY #90 11/16/22 tabs colesevelam 625 mg tablet (WelChol) 1,250 mg (2 x 625 mg) PO BID #120 12/17/22 tabs colesevelam 625 mg tablet 625 mg PO QDAY #90 tabs 03/05/23 alprazolam 0.25 mg tablet (Xanax) 0.25 - 0.5 mg (1 - 2 x 0.25 mg) PO 06/04/23 HS PRN sleep #30 tabs nirmatrelvir 300 mg (150 mg See Rx Instructions PO .COMPLEX 08/22/23 x2)-ritonavir 100 mg tablet,dose #30 ea pack (Paxlovid) amoxicillin 250 mg-potassium 17.5 ml PO BID 7 days #245 mL 11/09/23 clavulanate 62.5 mg/5 mL oral suspension (Augmentin) hydrocodone 5 mg-acetaminophen 325 1 tab PO Q6H PRN pain #10 tabs 11/09/23 mg tablet ondansetron 4 mg disintegrating 4 mg PO Q8H PRN nausea and 11/09/23 tablet vomiting #10 tabs Allergies Allergy/AdvReac Type Severity Reaction Status Date / Time prochlorperazine Allergy Irritable Verified 08/14/23 16:40 Sulfa (Sulfonamide Allergy Verified 08/14/23 16:40 Antibiotics) cephalexin AdvReac Intermediate Verified 08/14/23 16:40 oxycodone Allergy nausea and Uncoded 08/19/23 16:12 vomiting hydrocodone AdvReac nausea and Uncoded 08/19/23 16:12 vomiting PFSH PFSH Medical History Hepatic cyst ?K76.89 - Other specified diseases of liver (ICD-10) Hx of chest pain ?Z87.898 - Personal history of other specified conditions (ICD-10) Psoriasis ?L40.9 - Psoriasis, unspecified (ICD-10) Non-melanoma skin cancer ?C44.90 - Unspecified malignant neoplasm of skin, unspecified (ICD-10) Well adult on routine health check ?Z00.00 - Encounter for general adult medical examination without abnormal findings (ICD-10) Depression with anxiety ?F41.8 - Other specified anxiety disorders (ICD-10) Hypercholesteremia ?E78.00 - Pure hypercholesterolemia, unspecified (ICD-10) Elevated LFTs ?R79.89 - Other specified abnormal findings of blood chemistry (ICD-10) Constipation ?K59.00 - Constipation, unspecified (ICD-10) Hypoxia, sleep related ?G47.34 - Idiopathic sleep related nonobstructive alveolar hypoventilation (ICD-10) Mitral valve regurgitation ?I34.0 - Nonrheumatic mitral (valve) insufficiency (ICD-10) Urinary frequency ?R35.0 - Frequency of micturition (ICD-10) Tobacco dependence ?F17.200 - Nicotine dependence, unspecified, uncomplicated (ICD-10) Bacteremia due to Gram-negative bacteria ?R78.81 - Bacteremia (ICD-10) Multiple sclerosis ?G35 - Multiple sclerosis (ICD-10) Anxiety disorder, unspecified ?F41.9 - Anxiety disorder, unspecified (ICD-10) Surgical History Hx of cholecystectomy ?Z90.49 - Acquired absence of other specified parts of digestive tract (ICD-10) History of sinus surgery ?Z98.890 - Other specified postprocedural states (ICD-10) History of appendectomy ?Z90.49 - Acquired absence of other specified parts of digestive tract (ICD-10) Family History Other Adopted Social History Narrative: Smoker, no significant alcohol history. She is disabled secondary to MS. Highest level of school completed/degree received: high school graduate Smoking Status: Current every day smoker What tobacco products do you use: cigarettes Smoking packs per day: 1 Smoking cigarettes per day: 20.0 Years smoked: 50 Smoking pack-years: 50.00 Smoking quit date/years: <= 15 years ago Do you use any of these nicotine containing products: None Second hand tobacco smoke exposure: No How often do you have a drink containing alcohol: monthly or less Alcohol type: hard liquor How many standard drinks containing alcohol do you have on a typical day: 1 or 2 How often do you have six or more drinks on one occasion: Never AUDIT-C Alcohol total score: 1 Non-prescribed substance use: denies use Caffeine: Yes Little interest or pleasure in doing things: several days Feeling down, depressed, or hopeless: several days service: No Exam Narrative: Exam Narrative: Constitutional: Appears well-developed and well-nourished. Alert. Conversant. Non toxic. HENT: Head: Atraumatic. Nose: Nose normal. Mouth/Throat: Oral mucosa is clear and moist. no trismus. Pharynx normal. Tonsils symmetric. No tonsillar enlargement, erythema, or exudate. Eyes: Conjunctivae normal. EOM normal. Pupils equal, round, and reactive to light. No scleral icterus. Neck: Normal range of motion. Neck supple. No tracheal deviation present. Cardiovascular: Normal rate, regular rhythm. No gallop. No friction rub. No murmur heard. Symmetric radial artery pulses Pulmonary/Chest: Effort normal. No stridor. No respiratory distress. No wheezes. No rales. No rhonchi . No tenderness. Abdominal: Soft. Bowel sounds normal. No distension. No mass. Left lower quadrant> suprapubic and left upper quadrant tenderness. No rebound. No guarding. Musculoskeletal: RUE: Normal range of motion. No tenderness. No deformity LUE: Normal range of motion. No tenderness. No deformity RLE: Normal range of motion. No edema. No tenderness. No deformity LLE: Normal range of motion. No edema. No tenderness. No deformity Lymph: No cervical adenopathy. Neurological: Alert and oriented to person, place, and time. Normal strength. CN II-VII intact. No sensory deficit. GCS eye subscore is 4. GCS verbal subscore is 5. GCS motor subscore is 6. Normal coordination Skin: Skin is warm and dry. No rash noted. No pallor. Normal capillary refill. Psychiatric: Normal mood. Normal affect. Const: Vital Signs, click to edit/add: Vital Signs - 24 hr 11/09/23 13:23 11/09/23 16:30 Temperature 98.7 F Pulse Rate [Pulse Oximeter] 83 87 Respiratory Rate 18 18 Blood Pressure [[facility] Upper Arm] 93/62 105/63 Pulse Oximetry 99 Course Vital Signs Vital signs: Initial Vital Signs Temperature 98.7 F 11/09/23 13:23 Temperature Source Temporal Artery Scan 11/09/23 13:23 Pulse Rate 83 11/09/23 13:23 Respiratory Rate 18 11/09/23 13:23 Blood Pressure 93/62 11/09/23 13:23 Blood Pressure Mean 72 11/09/23 13:23 Vital Signs Temperature 98.7 F 11/09/23 13:23 Pulse Rate 83 11/09/23 13:23 Respiratory Rate 18 11/09/23 13:23 Blood Pressure 93/62 11/09/23 13:23 Temperature 98.7 F 11/09/23 13:23 Pulse Rate 87 11/09/23 16:30 Respiratory Rate 18 11/09/23 16:30 Blood Pressure 105/63 11/09/23 16:30 Pulse Oximetry 99 11/09/23 16:30 Medications Administered Medications: Discontinued Medications Generic Name Dose Route Start Last Admin Trade Name Freq PRN Reason Stop Dose Admin Hydrocodone Bitart/Acetaminophen 1 tab 11/09/23 13:54 11/09/23 14:10 Hydrocodone-Acetamin 5-325 Mg 1 Tab PO 11/09/23 13:55 1 tab ONCE ONE Administration Ondansetron HCl 4 mg 11/09/23 14:20 11/09/23 14:28 Ondansetron Odt 4 Mg Tab PO 11/09/23 14:21 4 mg ONCE ONE Administration Medical Decision Making MDM Narrative Medical decision making narrative: Presented to the Emergency Department with left lower quad abdominal pain. The differential diagnosis of abdominal pain includes: Appendicitis, Bowel Obstruction, Ulcer, Ischemia, Cholecystitis, Diverticulitis, Pancreatitis, UTI, kidney stone, Enteritis/Colitis, amongst many other etiologies. Laboratory testing does not reveal a cause for the patient's pain. The exact etiology of the abdominal pain is not clear at this time. However, patient has had diverticulitis presenting very similarly in the past. She believes this is another flare of diverticulitis. Discussed with the patient that CT imaging would be the best way to confirm that diagnosis and is also rule out other complications such as abscess, perforation or. She would like to avoid imaging today and possible. I think that is reasonable given reassuring exam and reassuring labs. Her glucose treat her empirically with a course of Augmentin for diverticulitis for now. No life threatening cause or need for emergent surgery or hospital admission is detected today. The patient was advised that if symptoms do not completely resolve within another 48 hours re-evaluation with primary care or return to the ED is indicated. The patient also understands that if they worsen, they should return to the ER right away, so that CT imaging and workup can be obtained. I discussed the uncertainty about the diagnosis and answered the patient's questions. Abdominal pain return precautions discussed. Lab Data Labs: Lab Results 11/09/23 11/09/23 Range/Units 14:00 15:07 WBC 11.19 H (4.50-11.00) K/uL RBC 4.70 (4.00-5.20) m/uL Hgb 14.2 (12.0-16.0) gm/dL Hct 43.4 (33.0-51.0) % MCV 92 (80-100) fL MCH 30 (26-34) pg MCHC 33 (32-36) gm/dL RDW Coeff of Mauricio 13.1 (11.5-15.5) % Plt Count 209 (140-440) K/uL Neut % (Auto) 79.1 H (42.0-72.0) % Lymph % (Auto) 10.8 L (20-44) % Hendry % (Auto) 8.4 (0.0-11.0) % Eos % (Auto) 1.3 (0.0-7.0) % Baso % (Auto) 0.3 (0.0-3.0) % Neut # (Auto) 8.90 H (1.7-7.0) K/uL Lymph # (Auto) 1.20 (0.90-2.90) K/uL Hendry # (Auto) 0.90 (0.00-0.90) K/UL Eos # (Auto) 0.10 (0.00-0.50) K/uL Baso # (Auto) 0.00 (0.00-0.30) K/uL Abs Immat Gran (auto) 0.00 (0.00-0.30) K/uL Imm/Tot Granulo (auto) 0.1 % Sodium 139 (135-149) mmol/L Potassium 4.3 (3.6-5.1) mmol/L Chloride 107 (96-114) mmol/L Carbon Dioxide 24 (20-32) mmol/L Anion Gap 8 (7-15) mEq/L BUN 11 (7-30) mg/dL Creatinine 0.8 (0.5-1.5) mg/dL Estimated Creat Clear 49.08 Estimated GFR 82 ml/min Glucose 100 (60-115) mg/dL Calcium 9.6 (8.4-10.6) mg/dL Total Bilirubin 0.5 (0.1-1.5) mg/dL AST 22 (12-35) U/L ALT 15 (4-35) U/L Alkaline Phosphatase 60 (40-150) U/L Total Protein 6.9 (6.0-8.3) g/dL Albumin 4.3 (3.3-5.0) g/dL Lipase 129 (23-300) U/L Urine Color Yellow (Yellow) Urine Appearance Clear (Clear) Urine pH 6.5 (5.0-8.5) Ur Specific [place] 1.015 (1.000-1.030) Urine Protein Negative (Negative) Urine Glucose (UA) Negative (Negative) Urine Ketones Negative (Negative) Urine Blood Trace-lysed A (Negative) Urine Nitrite Negative (Negative) Urine Bilirubin Negative (Negative) Urine Urobilinogen 0.2 (0.2-1.0) Ur Leukocyte Esterase Negative (Negative) Urine RBC 0-2 (0-2) Urine WBC 0-2 (0-5) Ur Squamous Epith Cells None (None-Few) Urine Bacteria None (None) Discharge Plan Discharge Clinical Impression: Diverticulitis Patient Disposition: Home, Self-Care Condition: Stable Instructions: Diverticulitis (DC) Additional Instructions: As we discussed, please start on the antibiotics today to treat possible diverticulitis. If this is diverticulitis, we would expect your symptoms should improve within 2-3 days. If her not completely back to normal by Saturday, please return to the ER or recheck with your doctor. As we discussed, diverticulitis is only a probable diagnosis. We have not confirmed this as a cause for her pain and cannot confirm it without getting a CT scan. If you get worse, or if you are not better by Saturday, please follow up to get a CT scan. Please use prescription nausea and pain medicine if needed. Be careful with pain killers because they cause drowsiness-do not drive he for 6 hours after you take a pain killer Use the prescription antibiotics twice daily for 7 days to treat for diverticulitis. Prescriptions: New hydrocodone-acetaminophen 5-325 mg tablet 1 tab PO Q6H PRN (Reason: pain) Qty: 10 0RF ondansetron 4 mg tablet,disintegrating 4 mg PO Q8H PRN (Reason: nausea and vomiting) Qty: 10 0RF amoxicillin-pot clavulanate [Augmentin] 250-62.5 mg/5 mL suspension for reconstitution 17.5 ml PO BID 7 Days Qty: 245 0RF No Action paroxetine HCl [Paxil] 30 mg tablet See Rx Instructions PO QDAY Qty: 90 2RF Rx Instructions: 15-30 mg orally every day; colesevelam 625 mg tablet 625 mg PO QDAY Qty: 90 3RF alprazolam [Xanax] 0.25 mg tablet 0.25 - 0.5 mg PO HS PRN (Reason: sleep) Qty: 30 0RF colesevelam [WelChol] 625 mg tablet 1,250 mg PO BID Qty: 120 3RF Paxlovid 300 mg (150 mg x 2)-100 mg tablets,dose pack See Rx Instructions PO .COMPLEX Qty: 30 0RF Rx Instructions: take TWO 150 mg tablets of nirmatrelvir with ONE 100 mg tablet of ritonavir twice daily for 5 days orally; Follow Up/Referrals: Max Maxwell MD [Primary Care Provider] - Stand Alone Forms: [employer] Info Instructions
[2023-11-09] MEDS: HYDROCODONE-ACETAMIN 5-325 MG 1 TAB PO (14:10)
[2023-11-09 14:12] LABS: Basophils Percent Auto 0.3 % (0.0-3.0); Eosinophils Percent Auto 1.3 % (0.0-7.0); Hematocrit 43.4 % (33.0-51.0); Hemoglobin* 14.2 gm/dL (12.0-16.0); Immature Granulocytes Pct Auto 0.1 %; Lymphocytes Percent Auto 10.8 % (20-44); Mean Corpuscular HGB Conc 33 gm/dL (32-36); Mean Corpuscular Hemoglobin 30 pg (26-34); Mean Corpuscular Volume 92 fL (80-100); Monocytes Percent Auto 8.4 % (0.0-11.0); Neutrophils Percent Auto 79.1 % (42.0-72.0); Platelet Count* 209 K/uL (140-440); RDW Coefficient of Variation % 13.1 % (11.5-15.5); White Blood Count* 11.19 K/uL (4.50-11.00)
[2023-11-09 14:17] LABS: Slide Review Reflex No
[2023-11-09 14:25] LABS: Albumin* 4.3 g/dL (3.3-5.0); Chloride* 107 mmol/L (96-114); Potassium* 4.3 mmol/L (3.6-5.1); Sodium* 139 mmol/L (135-149)
[2023-11-09 14:27] LABS: Anion Gap 8 mEq/L (7-15); Bilirubin Total* 0.5 mg/dL (0.1-1.5); Carbon Dioxide* 24 mmol/L (20-32); Creatinine* 0.8 mg/dL (0.5-1.5); Est. Creatinine Clearance* 49.08; Estimated Glomerular Filt Rate 82 ml/min
[2023-11-09 14:28] LABS: Alanine Aminotransferase* 15 U/L (4-35); Alkaline Phosphatase* 60 U/L (40-150); Aspartate Amino Transferase* 22 U/L (12-35); Blood Urea Nitrogen* 11 mg/dL (7-30); Calcium* 9.6 mg/dL (8.4-10.6); Glucose* 100 mg/dL (60-115); Lipase* 129 U/L (23-300); Total Protein* 6.9 g/dL (6.0-8.3)
[2023-11-09] MEDS: ONDANSETRON ODT 4 MG TAB PO (14:28)
[2023-11-09 15:13] LABS: Appearance Urine Clear (Clear); Bilirubin Urine Negative (Negative); Blood Urine Trace-lysed (Negative); Color Urine Yellow (Yellow); Glucose Urine Negative (Negative); Ketones Urine Negative (Negative); Leukocyte Esterase Urine Negative (Negative); Nitrite Urine Negative (Negative); Protein Urine Negative (Negative); Specific Gravity Urine 1.015 (1.000-1.030); Urobilinogen Urine 0.2 (0.2-1.0); pH Urine 6.5 (5.0-8.5)
[2023-11-09 15:22] LABS: RBC Urine 0-2 (0-2); WBC Urine 0-2 (0-5)
[2023-11-09 16:30] VITALS: BP 105/63; PULSE 87; RESP 18; O2SAT 99
== END 2023-11-09 16:06 | disposition home or self-care (01) ==
PROVIDERS: Emergency Provider Emergency Medicine; PCP Family Medicine
DX: K57.92 Diverticulitis of intestine, part unspecified, without perforation or abscess without bleeding (principal)
CPT/HCPCS: 36415; 80053; 81001; 83690; 85025; 99283; 99284; A9270

== ENCOUNTER 2024-04-10 11:20 | Outpatient (CLI) | payer OTHER, SELFPAY | END 2024-04-10 11:21 | disposition home or self-care (01) | LOC: NFLDREF 04-12 03:37 | PROVIDERS: PCP Family Medicine; Referring Provider Family Medicine; Visit Provider Family Medicine | DX: Z00.00 Encounter for general adult medical examination without abnormal findings (principal); E78.00 Pure hypercholesterolemia, unspecified | CPT/HCPCS: 80061 ==

== ENCOUNTER 2024-05-08 14:48 | Outpatient (CLI) | payer OTHER, SELFPAY ==
--- NOTE | 2024-05-08 15:00 | CRLHL7_ITS ---
For Patients: As a result of the Cures Act, medical imaging exams and procedure reports are released immediately into your electronic medical record. You may view this report before your referring provider. If you have questions, please contact your health care provider. INDICATION: Lung cancer screening. History of smoking. High risk patient with greater than pack-year smoking history. TECHNIQUE: Low-dose lung cancer screening non-contrast CT chest. Dose reduction techniques were used. COMPARISON: None. FINDINGS: NODULES: Stable small bilateral calcified and noncalcified nodules measuring 3 millimeters or less. LUNGS AND PLEURA: Emphysema. Biapical pleural-parenchymal scarring. MEDIASTINUM: No adenopathy. CORONARY ARTERY CALCIFICATION: Minimal. LIMITED UPPER ABDOMEN: Intrahepatic cysts. Gallbladder absent. MUSCULOSKELETAL: Discogenic spurring. No acute fracture. IMPRESSION: Stable small bilateral pulmonary nodules. LUNG-RADS CATEGORY: 2: Benign. RADIOLOGIST RECOMMENDATION: Continue annual screening with low-dose CT chest in 12 months. Please note that all CT scans at this facility use dose modulation, iterative reconstruction, and/or weight-based dosing when appropriate to reduce radiation dose to as low as reasonably achievable. Dictated by Ezequiel Morris MD @ 05/08/2024 3:31:41 PM (Electronically Signed)
== END 2024-05-08 14:49 | disposition home or self-care (01) ==
LOC: CT 14:49
PROVIDERS: PCP Family Medicine; Visit Provider Family Medicine
DX: Z12.2 Encounter for screening for malignant neoplasm of respiratory organs (principal); F17.200 Nicotine dependence, unspecified, uncomplicated
CPT/HCPCS: 71271

== ENCOUNTER 2024-10-15 12:19 | Emergency (ER) | payer OTHER, SELFPAY ==
[2024-10-15 12:23] VITALS: BP 135/85; PULSE 65; RESP 16; TEMP 36.6; O2SAT 97; BMI 23.2
[2024-10-15 12:54] VITALS: PULSE 64; O2SAT 95
--- NOTE | 2024-10-15 12:55 | ED_ITS ---
HPI - Weakness General Chief complaint: Weakness Stated complaint: flu symptoms/weakness Time Seen by Provider: 10/15/24 12:21 History of Present Illness HPI Narrative: This 64-year-old female comes in reporting nausea, vomiting, and diarrhea over the past day or so. Prior to this she has had a cough and was tested negative for COVID and influenza. She states that she still has a cough but feels better in regard to those symptoms. She arrives here with normal vital signs. She galicia s not report any fevers. Related Data Previous Rx's ?Medication ?Instructions ?Recorded paroxetine HCl 30 mg tablet (Paxil) 30 mg PO QDAY #90 tabs 04/10/24 levalbuterol tartrate 45 2 puff inhalation Q4-6H PRN 09/21/24 mcg/actuation aerosol inhaler shortness of breath #15 grams albuterol sulfate 90 mcg/actuation 2 puff inhalation Q4-6H PRN 10/12/24 aerosol inhaler shortness of breath or wheezing #6.7 grams ketorolac 10 mg tablet 10 mg PO Q8H 5 days #15 tabs 10/15/24 ondansetron HCl 4 mg tablet 4 mg PO Q6H #10 tabs 10/15/24 Allergies Allergy/AdvReac Type Severity Reaction Status Date / Time nirmatrelvir (From Paxlovid) Allergy Severe Anaphylaxis Verified 10/15/24 12:27 ritonavir (From Paxlovid) Allergy Severe Anaphylaxis Verified 10/15/24 12:27 Sulfa (Sulfonamide Allergy Unknown Verified 10/15/24 12:27 Antibiotics) prochlorperazine Allergy Irritable Verified 10/15/24 12:27 cephalexin AdvReac Intermediate Verified 10/15/24 12:27 hydrocodone AdvReac Intermediate Nausea and Verified 10/15/24 12:27 Vomiting Review of Systems Status of ROS: Reports: 10 or more systems reviewed and unremarkable except as noted in History and below Narrative: Constitutional: No fevers, no weight gain or loss. Eyes: No discharge. No vision changes. HENT: No congestion, no sore throat, no ear pain. Cardiovascular: No chest pain, no palpitations. Respiratory: No shortness of breath, no wheezes. She reports a cough that is lessened in severity recently. Gastrointestinal: No abdominal pain. She reports vomiting and diarrhea. Genitourinary: No dysuria, no hematuria. Musculoskeletal: Normal range of motion. Skin: No rashes, no pruritis. Neurological: No dizziness, weakness, sensory change, speech change. Endo/Heme/Allergies: No bruising or bleeding. No polydipsia. Pysch: no suicidality, no anxiety, no insomnia. All other systems reviewed and are negative. [facility] Medical History Dermatitis ?L30.9 - Dermatitis, unspecified (ICD-10) Hepatic cyst ?K76.89 - Other specified diseases of liver (ICD-10) Hx of chest pain ?Z87.898 - Personal history of other specified conditions (ICD-10) Psoriasis ?L40.9 - Psoriasis, unspecified (ICD-10) Non-melanoma skin cancer ?C44.90 - Unspecified malignant neoplasm of skin, unspecified (ICD-10) Well adult on routine health check ?Z00.00 - Encounter for general adult medical examination without abnormal findings (ICD-10) Depression with anxiety ?F41.8 - Other specified anxiety disorders (ICD-10) Hypercholesteremia ?E78.00 - Pure hypercholesterolemia, unspecified (ICD-10) Elevated LFTs ?R79.89 - Other specified abnormal findings of blood chemistry (ICD-10) Constipation ?K59.00 - Constipation, unspecified (ICD-10) Hypoxia, sleep related ?G47.34 - Idiopathic sleep related nonobstructive alveolar hypoventilation (ICD-10) Mitral valve regurgitation ?I34.0 - Nonrheumatic mitral (valve) insufficiency (ICD-10) Urinary frequency ?R35.0 - Frequency of micturition (ICD-10) Tobacco dependence ?F17.200 - Nicotine dependence, unspecified, uncomplicated (ICD-10) Bacteremia due to Gram-negative bacteria ?R78.81 - Bacteremia (ICD-10) Multiple sclerosis ?G35 - Multiple sclerosis (ICD-10) Anxiety disorder, unspecified ?F41.9 - Anxiety disorder, unspecified (ICD-10) Surgical History Hx of cholecystectomy ?Z90.49 - Acquired absence of other specified parts of digestive tract (ICD- 10) History of sinus surgery ?Z98.890 - Other specified postprocedural states (ICD-10) History of appendectomy ?Z90.49 - Acquired absence of other specified parts of digestive tract (ICD- 10) Family History Other Adopted Social History Narrative: Smoker, no significant alcohol history. She is disabled secondary to MS. Highest level of school completed/degree received: high school graduate Smoking Status: Current every day smoker What tobacco products do you use: cigarettes Smoking packs per day: 1 Smoking cigarettes per day: 20.0 Years smoked: 50 Smoking pack-years: 50.00 Smoking quit date/years: <= 15 years ago Do you use any of these nicotine containing products: None Second hand tobacco smoke exposure: No How often do you have a drink containing alcohol: monthly or less Alcohol type: hard liquor How many standard drinks containing alcohol do you have on a typical day: 1 or 2 How often do you have six or more drinks on one occasion: Never AUDIT-C Alcohol total score: 1 Non-prescribed substance use: denies use Caffeine: Yes service: No Exam Narrative: Exam Narrative: Constitutional: Well-developed, well-nourished, no acute distress. HEENT: Normocephalic, atraumatic. Neck: Normal range of motion. Nontender. Supple. Heart: Regular. No murmurs. Normal rate. Intact distal pulses. Lungs: Clear to auscultation. No chest discomfort. No wheezes, rhonchi, or rales. Abdomen: Normal bowel sounds. Nontender. No rebound tenderness. Genitalia: Deferred. Back: No midline tenderness. Normal range of motion. Extremities: Normal range of motion. No injury. Skin: Intact. No rash. Warm. No erythema or pallor. Neurologic: No altered sensation. No weakness. Alert and oriented. Psychiatric: No suicidality. No anxiety or depression. No insomnia. Nursing notes and vitals signs are reviewed. Const: Vital Signs, click to edit/add: Vital Signs - 24 hr 10/15/24 12:23 10/15/24 12:54 10/15/24 13:00 Temperature 97.8 F Pulse Rate 64 67 Pulse Rate [Pulse Oximeter] 65 Respiratory Rate 16 Blood Pressure [Ri ght Upper Arm] 135/85 Pulse Oximetry 97 95 95 Oxygen Delivery Me thod Room Air 10/15/24 13:15 10/15/24 13:30 10/15/24 13:45 Temperature Pulse Rate 74 65 64 Pulse Rate [Pulse Oximeter] Respiratory Rate Blood Pressure [Ri ght Upper Arm] Pulse Oximetry 96 97 97 Oxygen Delivery Me thod Course Vital Signs Vital signs: Initial Vital Signs Temperature 97.8 F 10/15/24 12:23 Temperature Source Temporal Artery Scan 10/15/24 12:23 Pulse Rate 65 10/15/24 12:23 Respiratory Rate 16 10/15/24 12:23 Blood Pressure 135/85 10/15/24 12:23 Blood Pressure Mean 101 10/15/24 12:23 Blood Pressure Position Semi-Fowlers 10/15/24 12:23 Pulse Oximetry 97 10/15/24 12:23 Oxygen Delivery Method Room Air 10/15/24 12:23 Vital Signs Temperature 97.8 F 10/15/24 12:23 Pulse Rate 65 10/15/24 12:23 Respiratory Rate 16 10/15/24 12:23 Blood Pressure 135/85 10/15/24 12:23 Pulse Oximetry 97 10/15/24 12:23 Oxygen Delivery Method Room Air 10/15/24 12:23 Temperature 97.8 F 10/15/24 12:23 Pulse Rate 64 10/15/24 13:45 Respiratory Rate 16 10/15/24 12:23 Blood Pressure 135/85 10/15/24 12:23 Pulse Oximetry 97 10/15/24 13:45 Oxygen Delivery Method Room Air 10/15/24 12:23 Medications Administered Medications: Discontinued Medications Generic Name Dose Route Start Last Admin Trade Name Freq PRN Reason Stop Dose Admin Sodium Chloride 1,000 mls @ 1,000 mls/hr 10/15/24 13:00 10/15/24 13:57 0.9 % Sodium Chloride 1000 Ml IV 10/15/24 13:59 Infused .Q1H [facility]CO Infusion Ketorolac Tromethamine 15 mg 10/15/24 13:00 10/15/24 13:05 Ketorolac 15 Mg/Ml Inj IVP 10/15/24 13:01 15 mg ONCE ONE Administration Ondansetron HCl 4 mg 10/15/24 12:47 10/15/24 13:05 Ondansetron 2 Mg/Ml Inj IVP 10/15/24 12:48 4 mg ONCE ONE Administration MDM - Weakness MDM Narrative Medical decision making narrative: This 64-year-old female comes in reporting lightheadedness related to vomiting and diarrhea that she has been having for the past couple days. She does arrive here with normal vital signs. I did discuss lab and imaging options with the patient which she declined in a process of shared decision making. She feels that she would do better if she received some fluids and nausea medicine. An IV was established where she did receive 1 L of normal saline along with Toradol 15 mg and Zofran 4 mg. She states that she is feeling better. She was able to get up to the bathroom and did well in that venture. Discharge Plan Discharge Clinical Impression: Gastroenteritis Patient Disposition: Home, Self-Care Condition: Improved Additional Instructions: Take frequent sips of fluids and increase diet otherwise as tolerated. Use medications as needed and directed. Follow up with MD return if worsening. Prescriptions: New ondansetron HCl 4 mg tablet 4 mg PO Q6H Qty: 10 0RF ketorolac 10 mg tablet 10 mg PO Q8H 5 Days Qty: 15 0RF No Action albuterol sulfate 90 mcg/actuation HFA aerosol inhaler 2 puff inhalation Q4-6H PRN (Reason: shortness of breath or wheezing) Qty: 6.7 0RF paroxetine HCl [Paxil] 30 mg tablet 30 mg PO QDAY Qty: 90 3RF levalbuterol tartrate 45 mcg/actuation HFA aerosol inhaler 2 puff inhalation Q4-6H PRN (Reason: shortness of breath) Qty: 15 0RF Follow Up/Referrals: Max Maxwell MD [Primary Care Provider] - Stand Alone Forms: [employer] Info Instructions
[2024-10-15 13:00] VITALS: PULSE 67; O2SAT 95
[2024-10-15] MEDS: KETOROLAC 15 MG/ML inj IVP (13:05)
[2024-10-15] MEDS: 0.9 % SODIUM CHLORIDE 1000 ml 1,000 ML IV (13:05)
[2024-10-15] MEDS: ONDANSETRON 2 MG/ML inj 4 MG IVP (13:05)
[2024-10-15 13:15] VITALS: PULSE 74; O2SAT 96
--- OUTSIDE RECORDS SUMMARY | 2024-10-15 13:25 | XMS_ITS | Clinical Summary ---
Author Organization [facility] Address [address] [place] [address] Care Team Providers Care Stove Carriage Operator Name Role Phone Den Mandujano MD Unavailable [phone] Max Maxwell MD Unavailable Max Maxwell MD Primary Care Provider [phone] Allergies Active Allergy Reactions Criticality Noted Date Comments Prochlorperazine Anxiety Medium 09/23/2019 Other reaction(s): restless legs dystonia dystonia Sulfa Antibiotics Rash,Other (See Comments) Low 10/04/2003 PN: LW Reaction: does not feel well while taking. Medications PARoxetine HCl (PAXIL PO) Take 30 mg by mouth daily Active ALPRAZolam (XANAX) 0.25 MG tablet Take 0.25 mg by mouth nightly as needed for anxiety Active ibuprofen (ADVIL/MOTRIN) 200 MG tablet Take 400 mg by mouth every 6 hours as needed for mild pain Active nicotine (NICODERM CQ) 7 MG/24HR 24 hr patchIndications :Tobacco use disorder Place 1 patch onto the skin daily 30 patch 7 Active Additional Information Patient not taking.Reported on 03/28/2022 aspirin 81 MG EC tabletIndication s:Elevated troponin Take 1 tablet (81 mg) by mouth daily 90 tablet 3 7 Active Additional Information Patient not taking.Reported on 03/28/2022 budesonide (PULMICORT) 0.5 MG/2ML neb solutionIndicati ons:Moderate persistent reactive airway disease without complication Empty contents of ampule into 240mL of saline solution and rinse both nasal cavities as instructed twice daily. 120 mL 11 3 Active levalbuterol (XOPENEX HFA) 45 MCG/ACT inhaler Inhale 2 puffs into the lungs every 4 hours as needed for shortness of breath or wheezing 15 g 3 Active Active Problems Problem Noted Date Diagnosed Date ACS (acute coronary syndrome) 04/01/2017 Social History Tobacco Use Types Packs/Day Years Used Date Smoking Tobacco: Every Day Cigarettes Alcohol Use Standard Drinks/Week Comments No 0 (1 standard drink = 0.6 oz pur e alcohol) PHQ-2 Answer Date Recorded PHQ-2 Score 0 03/28/2022 Adolescent Education Answer Date Record ed Getting School Help Needed Not on file 07/28 Comments Unknown Sex and Gender Information Value Date Recorded Sex Assigned at Not on file Legal Sex Female 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 Gender Identity Not on file Sexual Orientation Not on file Last Filed Vital Signs Vital Sign Reading Time Taken Comments Blood Pressure 128/68 04/14/2023 7:54 PM CDT Pulse 72 04/14/2023 7:54 PM CDT Temperature 36.6 C (97.8 F) 04/14/2023 4:54 PM CDT Respiratory Rate 18 04/14/2023 7:54 PM CDT Oxygen Saturation 99% 04/14/2023 7:54 PM CDT Inhaled Oxygen Concentration - - Weight 63.5 kg (140 lb) 03/28/2022 9:52 AM CDT Height 162.6 cm (5' 4) 03/28/2022 9:52 AM CDT Body Mass Index 24.03 03/28/2022 9:52 AM CDT Plan of Treatment Health Maintenance Due Date Last Done Comments ADVANCE CARE PLANNING 1959 ANNUAL REVIEW OF HM ORDERS 1959 ASTHMA ACTION PLAN 1959 ASTHMA CONTROL TEST 1959 CT COLONOGRAPHY 1959 DEXA 1959 FIT 1959 FLEX SIG 1959 sDNA (Cologuard) 1959 HIV SCREENING 1974 HEPATITIS C SCREENING 1977 Pneumococcal Vaccine: 50+ Years (1 of 2 - PCV) 1978 ZOSTER IMMUNIZATION (1 of 2) 2009 RSV VACCINE (1 - Risk 60-74 years 1-dose series) 2019 LUNG CANCER SCREENING 10/04/2021 10/04/2020 LIPID 04/02/2022 04/02/2017 PHQ-2 (once per calendar year) 2023 03/28/2022 COVID-19 Vaccine ( season) 2024 09/13/2022, 09/12/2021, 01/21/2021, Additional history exists INFLUENZA VACCINE (#1) 2024 FALL RISK ASSESSMENT 2024 MEDICARE ANNUAL WELLNESS VISIT 2024 01/13/2019, 05/13/2017 MAMMO SCREENING 10/25/2024 10/25/2022, 10/14, 10/24/2021, Additional history exists GLUCOSE 04/14/2026 04/14/2023, 03/15, 04/01/2017, Additional history exists COLONOSCOPY 01/03/2032 01/02/2022 COLORECTAL CANCER SCREENING 01/03/2032 DTAP/TDAP/TD IMMUNIZATION (3 - Td or Tdap) 01/10/2032 01/09/2022, 05/30/2011, 03/30/2002 HPV IMMUNIZATION Aged Out No longer e ligible based on patient's age to complete this topic MENINGITIS IMMUNIZATION Aged Out No l onger eligible based on patient's age to complete this topic RSV MONOCLONAL ANTIBODY Aged Out No l onger eligible based on patient's age to complete this topic Procedures Procedure Name Priority Date/Time Associated Diagnosis Comments BASIC METABOLIC PANEL STAT 04/14/2023 6:06 PM CDT LIPID REFLEX TO DIRECT LDL PANEL Routine 04/02/2017 7:42 AM CDT NSTEMI (non-ST elevated myocardial infarction) (H) from Last 3 Months or Most Recently Relevant to Health Maintenance Results * (ABNORMAL) Basic metabolic panel (04/14/2023 6:06 PM CDT) Sodium 137 136 - 145 mmol/L 04/14/2023 6:32 PM CDT LABORATORY Potassium 3.8 3.4 - 5.3 mmol/L 04/14/2023 6:32 PM CDT LABORATORY Chloride 104 98 - 107 mmol/L 04/14/2023 6:32 PM CDT LABORATORY Carbon Dioxide (CO2) 23 22 - 29 mmol/L 04/14/2023 6:32 PM CDT LABORATORY Anion Gap 10 7 - 15 mmol/L 04/14/2023 6:32 PM CDT LABORATORY Urea Nitrogen 10.5 8.0 - 23.0 mg/dL 04/14/2023 6:32 PM CDT LABORATORY Creatinine 0.82 0.51 - 0.95 mg/dL 04/14/2023 6:32 PM CDT LABORATORY Calcium 9.7 8.8 - 10.2 mg/dL 04/14/2023 6:32 PM CDT LABORATORY Glucose 122(H) 70 - 99 mg/dL 04/14/2023 6:32 PM CDT LABORATORY GFR Estimate 80 >60 mL/min/1.7 3m2 04/14/2023 6:32 PM CDT LABORATORY Blood STRUCTURE OF RIGHT UPPER LIMB / Unknown Venipuncture / Unknown 04/14/2023 6:06 PM CDT 04/14/2023 6:10 PM CDT us Norris Blood MD LAB - BLOOD ORDERABLES Final Result LABORATORY [facility] [address] Lab (1st floor, no room number) [place] [address], [facility] [phone] * (ABNORMAL) Lipid panel reflex to direct LDL (04/02/2017 7:42 AM CDT) Cholesterol 190 <200 mg/dL [facility] Triglycerides 77 <150 mg/dL [facility] HDL Cholesterol 65 >49 mg/dL [facility] LDL Cholesterol Calculated 110(H) <100 mg/dL [facility] Comment: Above desirable: 100-129 mg/dl Borderline High: 130-159 mg/dL High: 160-189 mg/dL Very high: >189 mg/dl Non HDL Cholesterol 125 <130 mg/dL [facility] Blood specimen (specimen) 04/02/2017 7:42 AM CDT 04/02/2017 7:49 AM CDT Elizabeth Byrd MD LAB - BLOOD ORDERABLES Julia nagel Result [facility] [address] [place] [address], [facility] [phone] from Last 3 Months or Most Recently Relevant to Health Maintenance Insurance [employer] Advance Directives For more information, please contact: [phone] * Full Code (Latest Code Status on File) Date Activated Date Inactivated Comments 04/02/2017 4:25 PM 04/14/2023 4:44 PM * Full Code Date Activated Date Inactivated Comments 04/01/2017 9:19 PM 04/02/2017 4:25 PM Care Teams Stove Carriage Operator Relationship Specialty Start Date End Date Max Maxwell MD [facility] [address] [address] PCP - General Family Medicine 04/14/23 Den Mandujano MD [address] [place] [address] Otolaryngology 01/11/22 Max Maxwell MD [address] [place] [address] Referring Physician Family Medicine 01/11/22
--- OUTSIDE RECORDS SUMMARY | 2024-10-15 13:25 | XMS_ITS | Clinical Summary ---
Author Organization [facility] Address [place], [place] [address] Care Team Providers Care Quality Assurance Technician Name Role Phone Max Maxwell MD Primary Care Provider [phone] Allergies Active Allergy Reactions Criticality Noted Date Comments Hydrocodone Nausea And Vomiting 09/22/2019 Nausea and vomiting Oxycodone Nausea And Vomiting 09/22/2019 Nausea and vomiting Prochlorperazine Anxiety Medium 09/23/2019 dystonia Sulfa (Sulfonamide Antibiotics) *Unknown 07/26/2011 Medications ALPRAZolam (XANAX) 0.25 mg tabletIndicatio ns:Acute midline thoracic back pain,Neck strain, initial encounter Take 1 tablet by mouth at bedtime if needed. 5 tablet 10/23/2016 Active esomeprazole (NEXIUM) 20 mg capsule Take 20 mg by mouth once daily. 05/02/2021 Active PARoxetine (PAXIL) 30 mg tablet 10/23/2021 Active Active Problems Problem Noted Date Diagnosed Date Depression 07/17/2013 Overview (07/17/2013): paxil since MS diagnosis 2001. MS (multiple sclerosis) Social History Tobacco Use Types Packs/Day Years Used Date Smoking Tobacco: Every Day Cigarettes Smokeless Tobacco: Never Tobacco Cessation:Ready to Q uit: No; Counseling Given: Yes Alcohol Use Standard Drinks/Week Comments No 0 (1 standard drink = 0.6 oz pur e alcohol) Comments No Sex and Gender Information Value Date Recorded Sex Assigned at Not on file Legal Sex Female 8:14 AM SPEED RUNNER Gender Identity Not on file Sexual Orientation Not on file Obstetrics History Last Filed Vital Signs Vital Sign Reading Time Taken Comments Blood Pressure 118/80 12/27/2021 10:54 AM CDT Pulse 71 12/27/2021 10:54 AM CDT Temperature 37 C (98.6 F) 10/23/2016 2:09 PM SPEED RUNNER Respiratory Rate 18 12/27/2021 10:5 4 AM CDT Oxygen Saturation 96% 12/27/2021 10: 54 AM CDT Inhaled Oxygen Concentration - - Weight 64.6 kg (142 lb 6.4 oz) 12/27/2021 10:54 AM CDT Pt weighed with shoes on. Height 162 cm (5' 3.78) 10/23/2016 2:0 9 PM SPEED RUNNER Body Mass Index 24.61 10/23/2016 2:09 PM SPEED RUNNER Plan of Treatment Health Maintenance Due Date Last Done Comments Tdap 1970 HIV for age 15-65 1974 Hepatitis C screening for age 18-79 1977 Tetanus booster 1979 Lipids for age 45-75 2004 Zoster (shingles) series for age 50+ (1 of 2) 2009 Mammogram for age 45-75 09/27/2016 09/27/20 15 (Completed outside of [facility]), 07/26/2011 (Completed outside of [facility]) Depression screening for age 12+ 12/21/2016 12/22/19 16 BMI (ht and wt on same day) for age 18+ 10/23/2017 10/23/2016, 12/22/2015 COVID-19 vaccine series ( season) 2024 09/12/2021, 01/21/2021, 12/31/2020 DEXA/DXA scan for age 65+ 2024 Influenza for age 65+ 2024 Pneumococcal series for age 50+ (1 of 1 - PCV) 2024 Colonoscopy through age 75 09/27/202509/27 (Completed outside of [facility]) Pap test for age 21-65 06/04/2026 06/04/2023, 2022 RSV vaccine for adults or pr egnancy (1 - 1-dose 75+ series) 2034 Procedures Procedure Name Priority Date/Time Associated Diagnosis Comments HPV HIGH RISK Routine 06/04/2023 12:00 PM CDT from Last 3 Months or Most Recently Relevant to Health Maintenance Results * HPV HIGH RISK (06/04/2023 12:00 PM CDT) TYPE 16 Negative Negative 06/12/2023 11:09 AM CDT [facility] TRAL LABORATORY TYPE 18 Negative Negative 06/12/2023 11:09 AM CDT [facility] TRAL LABORATORY OTHER HIGH RISK TYPES Negative Negative 06/12/2023 11:09 AM CDT [facility] TRA LABORATORY Other (Cervical) 06/04/2023 12:00 PM CDT 06/06/2023 5:15 PM CDT Narrative [facility] - 06/12/2023 11:09 AM CDT HPV types 16, 18, 31, 33, 35, 39, 45, 51, 52, 56, 58, 59, 66 and 68 DNA were undetectable or below the pre-set threshold. Methodology: [email or web address] Ghanshyam 4800 HPV Test us Max Maxwell MD MICROBIOLOGY Final Result [facility] [address] [place] [address], [place] from Last 3 Months or Most Recently Relevant to Health Maintenance Insurance MEDICARE ADVANTAGE [place] [id number] Care Teams Quality Assurance Technician Relationship Specialty Start Date End Date Max Maxwell MD PCP - General Family Practice 06/29/22
--- OUTSIDE RECORDS SUMMARY | 2024-10-15 13:26 | XMS_ITS | Encounter Summary ---
Author Organization [facility] Address [address] [place] [address]. [place] [address] Care Team Providers Care Primary Special Education Teacher Name Role Phone Mckenna Briscoe MD Primary Care Provider [phone] Den Mandujano MD Unavailable [phone] Max Maxwell MD Unavailable Den Mandujano MD Unavailable [phone] Max Maxwell MD Primary Care Provider [phone] Encounter Details Date Type Department Care Team (Late st Contact Info) Description 11/13/2022 [facility] [address] [address] Den Mandujano MD [address] [place] [address] Social History Tobacco Use Types Packs/Day Years Used Date Smoking Tobacco: Every Day Cigarettes Alcohol Use Standard Drinks/Week Comments No 0 (1 standard drink = 0.6 oz pur e alcohol) PHQ-2 Answer Date Recorded PHQ-2 Score 0 03/28/2022 Comments Unknown Sex and Gender Information Value Date Recorded Sex Assigned at Not on file Legal Sex Female 3:05 AM SENIOR CYBER SECURITY ANALYST Gender Identity Not on file Sexual Orientation Not on file COVID-19 Exposure Response Date Recorded In the last 10 days, have yo u been in contact with someone who was confirmed or suspected to have Coronavirus/COVID-19? No / Unsure 11/08/2022 1:51 PM SENIOR CYBER SECURITY ANALYST documented as of this encounter Plan of Treatment Not on file documented as of this encounter Visit Diagnoses Not on filedocumented in this encounter Care Teams Primary Special Education Teacher Relationship Specialty Start Date End Date Mckenna Briscoe MD PCP - General Internal Medicine 04/01/17 04/13/23 Max Maxwell MD [address] [address] PCP - General Family Medicine 04/14/23 Den Mandujano MD [address] [place] [address] Otolaryngology 01/11/22 Max Maxwell MD [address] [place] [address] Referring Physician Family Medicine 01/11/22 Den Mandujano MD [address] [place] [address] Assigned Surgical Provider 03/31/22 documented as of this encounter
--- OUTSIDE RECORDS SUMMARY | 2024-10-15 13:26 | XMS_ITS | Referral Summary ---
Author Organization [facility] Address [address] [place] [address] Care Team Providers Care Textile Knitter Name Role Phone Den Mandujano MD Unavailable [phone] Max Maxwell MD Unavailable Max Maxwell MD Primary Care Provider [phone] Allergies Active Allergy Reactions Criticality Noted Date [...] on file Legal Sex Female 3:05 AM FINANCIAL INSTITUTION PRESIDENT Gender Identity Not on file Sexual Orientation [...] 03/28/2022 9:52 AM CDT Plan of Treatment Not on file Procedures Procedure Name Priority Date/Time Associated Diagnosis [...] LAB - BLOOD ORDERABLES Final Result LABORATORY [facility] Lab [address] Lab (1st floor, no room number) [place] [address], [facility] [phone] * (ABNORMAL) Lipid panel reflex to direct LDL (04/02/2017 7:42 AM CDT) Cholesterol 190 <200 mg/dL [facility] Triglycerides 77 <150 mg/dL [facility] HDL Cholesterol 65 >49 mg/dL [facility] LDL Cholesterol Calculated 110(H) <100 mg/dL [facility] Comment: Above desirable: 100-129 mg/dl Borderline High: 130-159 mg/dL High: 160-189 mg/dL Very high: >189 mg/dl Non HDL Cholesterol 125 <130 mg/dL [facility] Blood specimen (specimen) 04/02/2017 7:42 AM CDT 04/02/2017 7:49 AM CDT us Elizabeth Byrd MD LAB - BLOOD ORDERABLES Julia nagel Result [facility] [address] [place], [place] [address] [phone] from Last 3 Months or Most Recently Relevant to Health Maintenance Insurance [employer] Advance Directives For more information, please contact: [phone] * Full Code (Latest Code Status on File) Date Activated Date Inactivated Comments 04/02/2017 4:25 PM 04/14/2023 4:44 PM * Full Code Date Activated Date Inactivated Comments 04/01/2017 9:19 PM 04/02/2017 4:25 PM Care Teams Textile Knitter Relationship Specialty Start Date End Date Max Maxwell MD [facility] [address] [id number] PCP - General Family Medicine 04/14/23 Den Mandujano MD [address] [place] [address] Otolaryngology 01/11/22 Max Maxwell MD [address] [place] [address] Referring Physician Family Medicine 01/11/22
--- OUTSIDE RECORDS SUMMARY | 2024-10-15 13:26 | XMS_ITS | Encounter Summary ---
Author Organization [facility] Address [address] [place] [address]. [place] [address] Care Team Providers Care Ferryboat Deckhand Name Role Phone Mckenna Briscoe MD Primary Care Provider [phone] Den Mandujano MD Unavailable [phone] Max Maxwell MD Unavailable Den Mandujano MD Unavailable [phone] Max Maxwell MD Primary Care Provider [phone] Encounter Details Date Type Department Care Team (Late st Contact Info) Description 11/09/2022 [facility] [address] [address] Den Mandujano MD [address] [place] [address] Social History Tobacco Use Types Packs/Day Years Used Date Smoking Tobacco: Every Day Cigarettes Alcohol Use Standard Drinks/Week Comments No 0 (1 standard drink = 0.6 oz pur e alcohol) PHQ-2 Answer Date Recorded PHQ-2 Score 0 03/28/2022 Comments Unknown Sex and Gender Information Value Date Recorded Sex Assigned at Not on file Legal Sex Female 3:05 AM NAVAL AIRCREWMAN HELICOPTER Gender Identity Not on file Sexual Orientation Not on file COVID-19 Exposure Response Date Recorded In the last 10 days, have yo u been in contact with someone who was confirmed or suspected to have Coronavirus/COVID-19? No / Unsure 11/08/2022 1:51 PM NAVAL AIRCREWMAN HELICOPTER documented as of this encounter Plan of Treatment Not on file documented as of this encounter Visit Diagnoses Not on filedocumented in this encounter Care Teams Ferryboat Deckhand Relationship Specialty Start Date End Date Mckenna Briscoe MD PCP - General Internal Medicine 04/01/17 04/13/23 Max Maxwell MD [address] [address] PCP - General Family Medicine 04/14/23 Den Mandujano MD [address] [place] [address] Otolaryngology 01/11/22 Max Maxwell MD [address] [place] [address] Referring Physician Family Medicine 01/11/22 Den Mandujano MD [address] [place] [address] Assigned Surgical Provider 03/31/22 documented as of this encounter
--- OUTSIDE RECORDS SUMMARY | 2024-10-15 13:26 | XMS_ITS | Clinical Summary ---
Author Organization [employer] Address [address] [place] [address] Care Team Providers Care Roofing Subcontractor Name Role Phone Found, No Pcp MD Primary Care Provider Unavailab le Source Comments You are receiving this document as you are listed as the primary care provider,follow-up provider, or the patient has been referred to you for consultation.This is in compliance with the Medicare andMedicaid EHR Incentive Program,which states Providers who transition their patient to another setting of careor provider of care or refers their patient to another provider of care shouldprovide summary care record for each transition of care or referral. [facility] Allergies Active Allergy Reactions Criticality Noted Date Comments Prochlorperazine Anxiety Medium 09/23/2019 dystonia Hydrocodone 09/22/2019 Nausea and vomiting Oxycodone Unknown 09/22/2019 Nausea and vomiting Sulfa Antibiotics Rash 10/04/2003 PN: LW Reaction: does not feel well while taking. Medications Medication Sig Dispensed Refills Start Date End Date Status ALPRAZolam (XANAX) 0.25 MG tabletIndications:A nxiety (HRC) Take 1-2 Tablets by mouth at bedtime as needed. 60 Tablet 07/26/2020 Active PARoxetine (PAXIL) 30 MG tabletIndications:A nxiety (HRC) Take 1 Tablet by mouth daily. 90 Tablet 3 07/26/2020 Active ALBUterol sulfate HFA 108 (90 Base) MCG/ACT inhaler Inhale 1-2 Puffs every 4 hours as needed for Wheezing. 1 Each 3 10/10/2020 Active oxyCODONE (ROXICODONE) 5 MG immediate release tablet SMARTSI Milligram(s) By Mouth Every 6 Hours PRN 07/02/2022 Active amoxicillin-clavula nathaniel (AUGMENTIN) 875-125 mg per tablet Take 1 Tablet by mouth two times a day. 01/09/2022 Active colesevelam (WELCHOL) 625 MG tablet Take 1 Tablet (625 mg) by mouth daily. 03/29/2023 Active budesonide (PULMICORT) 0.5 MG/2ML inhalation suspension Empty contents of ampule into 240mL of saline solution and rinse both nasal cavities as instructed twice daily. 11/12/2022 Active Active Problems Problem Noted Date Diagnosed Date H/O nonmelanoma skin cancer 04/23/2023 Overview (04/23/2023): BCC: -right forearm, removed with biopsy 09/2007 Chronic sinusitis 07/31/2019 Overview (07/31/2019): Added automatically from request for surgery [id number] Hypertrophy of nasal turbinates 07/31/2019 Overview (07/31/2019): Added automatically from request for surgery [id number] Nasal septal deviation 07/31/2019 Overview (07/31/2019): Added automatically from request for surgery [id number] Closed fracture of lower end of left radius with routine healing 01/03/2019 Depression 07/17/2013 Overview (02/09/2017): Overview: paxil since MS diagnosis 2001. Anxiety 12/09/2012 Tobacco use disorder 03/20/2003 Overview (06/05/2017): Tobacco Abuse Multiple sclerosis 03/20/2003 Resolved Problems Problem Noted Date Diagnosed Date Resolved Date Malignant neoplasm of skin of upper limb 10/08/2007 04/23/2023 Overview (06/05/2017): LW Modifier: Right forearm-nodular ; Basal Cell Ca Upper Limb Depressive disorder 11/21/2004 04/06/20 Overview (06/05/2017): LW Onset: [id number] ; Depression NOS Immunizations Name Administration Dates Next Due DT Ped 11/17/1984 TDAP (ADACEL) 05/30/2011 Td 03/30/2002 Family History * Patient is adopted Medical History Relation Name Comments Adopted Father Adopted Mother Adopted Other LW Problem: V19 .8 Adoption Fam Hx Unknown Relation Name Status Comments Father Mother Other Social History Tobacco Use Types Packs/Day Years Used Date Smoking Tobacco: Every Day Cigarettes 1 30 Smokeless Tobacco: Never Tobacco Cessation:Ready to Q uit: No; Counseling Given: Yes Comments:Smoking History Packs/day: Alcohol Use Standard Drinks/Week Comments Yes 0 (1 standard drink = 0.6 oz pur e alcohol) RARE AUDIT-C Answer Date Recorded Q1: How often do you have a drink containing alc ohol? Monthly or less 10/04/2020 Average Number of Drinks Not on file 020 Frequency of Binge Drinking Not on file 09/14 PHQ-2 Answer Date Recorded PHQ-2 Score 1 07/26/2020 Sex and Gender Information Value Date Recorded Sex Assigned at Not on file Gender Identity Not on file Sexual Orientation Not on file Last Filed Vital Signs Vital Sign Reading Time Taken Comments Blood Pressure 117/64 04/14/2023 4:25 PM CDT Pulse 66 04/14/2023 4:25 PM CDT Temperature 36.8 C (98.3 F) 04/14/2023 4:25 PM CDT Respiratory Rate 20 04/14/2023 4:25 PM CDT Oxygen Saturation 97% 04/14/2023 4:25 PM CDT Inhaled Oxygen Concentration - - Weight 65.1 kg (143 lb 9.6 oz) 10/04/2020 2:23 P M WOOD BARKER Height 164.5 cm (5' 4.75) 07/26/2020 2:29 PM CD T Body Mass Index 24.08 07/26/2020 2:29 PM CDT Plan of Treatment Health Maintenance Due Date Last Done Comments Zoster/Shingles (1 of 2) 2009 FIT Colon Cancer Screening 09/02/202009/02, 07/30/2017, 11/23/2015 (Completed), Additional history exists Lung Cancer Screening 10/04/2021 10/04/2020 Cervical Cancer Screening 01/14/20242018, 10/19/2015, 12/09/2012, Additional history exists Cholesterol 01/14/2024 01/13/2019, 0 03/2016, 12/09/2012, Additional history exists COVID-19 Vaccine ( season) 2024 09/13/2022, 09/12/2021, 01/21/2021, Additional history exists Influenza (#1) 2024 Medicare Annual Wellness Visit 10/14/2024 07/26/2020, 01/13/2019 Mammogram 02/20/2025 02/21/2024, 10/14, 10/24/2021, Additional history exists DTaP/Tdap/Td (5 - Tdap) 01/10/2032 01/10/20, 05/30/2011, 03/30/2002, Additional history exists RSV (1 - 1-dose 75+ series) 2034 Hep C Screening (Preventive Services) Completed 01/13/2019 HepA Aged Out No longer eligi ble based on patient's age to complete this topic HepB Aged Out No longer eligi ble based on patient's age to complete this topic Hib Aged Out No longer eligi ble based on patient's age to complete this topic IPV (Polio) Aged Out No longer eligi ble based on patient's age to complete this topic MCV4 Aged Out No longer eligi ble based on patient's age to complete this topic Procedures Procedure Name Priority Date/Time Associated Diagnosis Comments MM MAMMOGRAM SCREENING BILAT W 3D VICENTE W CAD Routine 02/21/2024 2:[address] CHEST WO IV CONT LUNG SCREENING Routine 10/04/2020 1:58 PM WOOD BARKER Tobacco use disorder EXT RSLT - FIT COLON RECTAL CANCER SCREENING Routine 09/02/2019 PAP TEST Routine 01/13/2019 3:29 PM CDT Cervical cancer screening HEPATITIS C ANTIBODY, WITH REFLEX Routine 01/13/2019 12:35 PM CDT Need for hepatitis C screening test LIPID PANEL & DIRECT LDL (IF NEEDED) Routine 01/13/2019 12:35 PM CDT Routine medical exam from Last 3 Months or Most Recently Relevant to Health Maintenance Results * MM Mammogram Screening Bilat W 3D Vicente W CAD (02/21/2024 2:04 PM CDT) Anatomical Region Laterality Modality Breast Bilateral Mammography Impressions 02/21/2024 2:30 PM CDT : ACR BI-RADS Category 1: Negative RECOMMENDATION: Follow Up Imaging in 12 months - Bilateral The results and recommendations of this examination will be communicated to the patient. Narrative 02/21/2024 2:30 PM CDT MM MAMMOGRAM SCREENING BILAT W 3D VICENTE W CAD performed on 02/21/24 Compared to: 10/25/2022 MM Mammogram Screening Bilat W 3D Vicente W CAD, 10/24/2021 MM Mammogram Screening Bilat W 3D Vicente W CAD, and 08/24/2020 MM Mammogram Screening Bilat W 3D Vicente W CAD FINDINGS: Bilateral screening mammogram was performed with the assistance of Computer-Aided Detection and breast tomosynthesis. The breasts are heterogeneously dense, which may obscure small masses. There is no radiographic evidence of malignancy. Max Maxwell MD RAD [facility] * CT Chest WO IV Cont Lung Screening (10/04/2020 1:58 PM WOOD BARKER) Anatomical Region Laterality Modality Chest, Lung Computed Tomogra phy 10/04/2020 1:51 PM WOOD BARKER Impressions 10/04/2020 2:21 PM WOOD BARKER COMPARISON: None. TECHNIQUE: Images through the chest were obtained without contrast using a low dose lung screening technique. FINDINGS: CHEST WALL AND LOWER NECK: Unremarkable. LYMPHADENOPATHY: No mediastinal, hilar or axillary adenopathy. CARDIOMEDIASTINUM: Unremarkable. VISUALIZED UPPER ABDOMEN: Multiple fluid attenuation lesions are seen in the liver, some in the right and at least one in the left lobe not completely characterized by this study but may represent cysts. Confirmation with ultrasound recommended. Hanson images created. PLEURA/ PLEURAL EFFUSION: Unremarkable. No pleural effusion. BONES: Unremarkable. LUNG AND LARGE AIRWAYS: A few scattered 2 to 4 mm nonspecific pulmonary nodules are seen along with a few scattered calcified granulomas. IMPRESSION: 1. 2-4 mm nonspecific pulmonary nodules. 2. Likely hepatic cyst. Confirmation with ultrasound recommended. ACR Lung-RADS Category 2: Benign appearance or behavior. Nodules with a very low likelihood of becoming a clinically active cancer due to size or lack of growth. Continue annual screening with low-dose chest CT in 12 months. ACR Lung-RADS Category S: Other. Clinically significant or potentially clinically significant findings (non lung cancer). Clinical follow-up is recommended Mckenna Briscoe MD RAD CT * FIT Colon Rectal Cancer Screening(Ext Rslt) (09/02/2019) EXT RSLT - FIT (FECAL IMMUNOCHEMICAL TEST) Negative PN EXTERNAL LAB-SEE SCANNED DOCUMENT 09/02/2019 Physician Unknown LAB EXTERNAL RESULT PN EXTERNAL LAB-SEE SCANNED DOCUMENT * Pap Test Order (01/13/2019 3:29 PM CDT) Case Report Pap Case: [id number] Authorizing Provider: Mckenna Birscoe MD Collected: 01/13/2019 03:29 PM Ordering Location: [place] [facility] Received: 01/13/2019 03:29 PM Medicine First Screen: Alvina Adkins Rescreen: Vianey Gaspar Specimen: Pap Test, Routine, Cervix/Endocervix 01/23/2019 10:39 AM CDT [facility] Pap Specimen Adequacy Satisfactory for evaluation, endocervical/smyth sformation zone component present. 01/23/2019 10:39 AM CDT [facility] Pap Interpretation Negative for intraepithelial lesion or malignancy (NILM). 01/23/2019 10:39 AM CDT [facility] Gross Description The specimen is received in SurePath fixative and properly labeled. 1 Pap-stained SurePath slide is prepared. 01/23/2019 10:39 AM CDT [facility] Pap Disclaimer The Pap test is a screening test designed to aid in the detection of cervical cancer and its precursor lesions. It is not a diagnostic procedure and should not be used as the sole means of detecting cervical cancer. Both false-positive and false-negative reports may occur. 01/23/2019 10:39 AM CDT [facility] Embedded Images 10:39 AM CDT [facility] Other Specimen Type ENTIRE ENDOCERVIX / Unknown 01/13/2019 3:29 PM CDT 01/13/2019 3:29 PM CDT Comment:LMP: No LMP recorded . Patient is postmenopausal. Mckenna Briscoe MD LAB PATHOLOGY Performing Organization Address City/[facility] Co de Phone Number [facility] [address] * Lipid Panel and Direct LDL(If Needed) (01/13/2019 12:35 PM CDT) Pathologist [facility] Cholesterol 199 0 - 199 mg/dL 01/13/2019 3:19 PM CDT [facility] Triglyceride 129 <=149 mg/dL 01/13/2019 3:19 PM T [facility] HDL Cholesterol 47 >=40 mg/dL 9 3:19 PM T [facility] LDL, Calculated 126 <130 mg/dL 9 3:19 PM T [facility] Non HDL Chol, Calculated 152 <=159 mg/dL 01/13/2019 3:19 PM T [facility] Cholesterol/HDL Ratio 4.2 01/13/2019 3:19 PM T [facility] Blood Venipuncture / Unknown 01/13/2019 12:35 PM CDT 01/13/2019 12:35 PM CDT Mckenna Briscoe MD LAB_1 Performing Organization Address City/[facility]/ZIP Co de Phone Number [facility] [address] [place] [address], [facility] [phone] * Hepatitis C Virus Leeann with Reflex (01/13/2019 12:35 PM CDT) Pathologist [facility] Hepatitis C Antibody Negative (Non Reactive) Negative (Non Reactive) 01/13/2019 9:54 PM CDT [facility] Comment:Antibodies to HCV no t detected. Does not exclude the possiblity of exposure to HCV. Blood Venipuncture / Unknown 01/13/2019 12:35 PM CDT 01/13/2019 12:35 PM CDT Mckenna Briscoe MD LAB_1 [facility] [address] [place] [address], [facility] from Last 3 Months or Most Recently Relevant to Health Maintenance Advance Directives * Full Code (Latest Code Status on File) Date Activated Date Inactivated Comments 09/22/2019 12:49 PM 09/23/2019 2:04 PM Care Teams Roofing Subcontractor Relationship Specialty Start Date End Date Found, No Pcp, [address] [place] [address] PCP - General 04/04/22
[2024-10-15 13:30] VITALS: PULSE 65; O2SAT 97
[2024-10-15 13:45] VITALS: PULSE 64; O2SAT 97
== END 2024-10-15 14:14 | disposition home or self-care (01) ==
PROVIDERS: Emergency Provider Emergency Medicine Emergency Medical Services; PCP Family Medicine
DX: K52.9 Noninfective gastroenteritis and colitis, unspecified (principal)
CPT/HCPCS: 96374; 96375; 99283; 99284; J1885; J2405; J7030

== ENCOUNTER 2024-11-24 17:59 | Emergency (ER) | payer OTHER, SELFPAY ==
[2024-11-24] VITALS (13 sets, daily range): BP systolic 141; BP diastolic 79; PULSE 65–89; RESP 12–19; TEMP 37; O2SAT 97–100; BMI 23.2
--- OUTSIDE RECORDS SUMMARY | 2024-11-24 18:01 | XMS_ITS | Encounter Summary ---
Author Organization [facility] Address [address] [place] [address]. [place] [address] Care Team Providers Care Trailer Assembler Name Role Phone Mckenna Briscoe MD Primary Care Provider [phone] Den Mandujano MD Unavailable [phone] Max Maxwell MD Unavailable Den Mandujano MD Unavailable [phone] Max Maxwell MD Primary Care Provider [phone] Encounter Details Date Type Department Care Team (Late st Contact Info) Description 11/13/2022 [facility] [address] [address] Den Mandujano MD [address] [place] [address] Social History Tobacco Use Types Packs/Day Years Used Date Smoking Tobacco: Every Day Cigarettes Alcohol Use Standard Drinks/Week Comments No 0 (1 standard drink = 0.6 oz pur e alcohol) PHQ-2 Answer Date Recorded PHQ-2 Score 0 03/28/2022 Comments Unknown Sex and Gender Information Value Date Recorded Sex Assigned at Not on file Legal Sex Female 3:05 AM SECURITY OFFICER Gender Identity Not on file Sexual Orientation Not on file COVID-19 Exposure Response Date Recorded In the last 10 days, have yo u been in contact with someone who was confirmed or suspected to have Coronavirus/COVID-19? No / Unsure 11/08/2022 1:51 PM SECURITY OFFICER documented as of this encounter Plan of Treatment Not on file documented as of this encounter Visit Diagnoses Not on filedocumented in this encounter Care Teams Trailer Assembler Relationship Specialty Start Date End Date Mckenna Briscoe MD PCP - General Internal Medicine 04/01/17 04/13/23 Max Maxwell MD [facility] [address] [place] [address] PCP - General Family Medicine 04/14/23 Den Mandujano MD [address] [place] [address] Otolaryngology 01/11/22 Max Maxwell MD [facility] [address] [place] [address] Referring Physician Family Medicine 01/11/22 Den Mandujano MD [address] [place] [address] Assigned Surgical Provider 03/31/22 documented as of this encounter
--- OUTSIDE RECORDS SUMMARY | 2024-11-24 18:01 | XMS_ITS | Clinical Summary ---
Author Organization [facility] Address [address] [place] [address] Care Team Providers Care Technical Sales Support Specialist Name Role Phone Found, No Pcp MD [...] for each transition of care or referral. [facility] Allergies Active Allergy Reactions Criticality Noted Date [...] (07/31/2019): Added automatically from request for surgery [id number] Hypertrophy of nasal turbinates 07/31/2019 Overview (07/31/2019): Added automatically from request for surgery [id number] Nasal septal deviation 07/31/2019 Overview (07/31/2019): Added automatically from request for surgery [id number] Closed fracture of lower end of left [...] disorder 11/21/2004 04/06/20 Overview (06/05/2017): LW Onset: [id number] ; Depression NOS Immunizations Name Administration Dates [...] lb 9.6 oz) 10/04/2020 2:23 P M DRIVER WHEELCHAIR Height 164.5 cm (5' 4.75) 07/26/2020 2:29 [...] CONT LUNG SCREENING Routine 10/04/2020 1:58 PM DRIVER WHEELCHAIR Tobacco use disorder EXT RSLT - FIT [...] IV Cont Lung Screening (10/04/2020 1:58 PM DRIVER WHEELCHAIR) Anatomical Region Laterality Modality Chest, Lung Computed Tomogra phy 10/04/2020 1:51 PM DRIVER WHEELCHAIR Impressions 10/04/2020 2:21 PM DRIVER WHEELCHAIR COMPARISON: None. TECHNIQUE: Images through the chest [...] 3:29 PM CDT) Case Report Pap Case: [id number] Authorizing Provider: Mckenna Briscoe MD Collected: 01/13/2019 03:29 PM Ordering Location: [place] [facility] Received: 01/13/2019 03:29 PM Medicine First Screen: Alvina Adkins Rescreen: Vianey Gaspar Specimen: Pap Test, Routine, Cervix/Endocervix 01/23/2019 10:39 AM CDT [facility] Pap Specimen Adequacy Satisfactory for evaluation, endocervical/smyth sformation zone component present. 01/23/2019 10:39 AM CDT [facility] Pap Interpretation Negative for intraepithelial lesion or malignancy (NILM). 01/23/2019 10:39 AM CDT [facility] Gross Description The specimen is received in SurePath fixative and properly labeled. 1 Pap-stained SurePath slide is prepared. 01/23/2019 10:39 AM CDT [facility] Pap Disclaimer The Pap test is a screening test designed to aid in the detection of cervical cancer and its precursor lesions. It is not a diagnostic procedure and should not be used as the sole means of detecting cervical cancer. Both false-positive and false-negative reports may occur. 01/23/2019 10:39 AM CDT [facility] Embedded Images 10:39 AM CDT [facility] Other Specimen Type ENTIRE ENDOCERVIX / Unknown 01/13/2019 3:29 PM CDT 01/13/2019 3:29 PM CDT Comment:LMP: No LMP recorded . Patient is postmenopausal. Mckenna Briscoe MD LAB PATHOLOGY Performing Organization Address City/[facility] Co de Phone Number [facility] [address] * Lipid Panel and Direct LDL(If Needed) (01/13/2019 12:35 PM CDT) Pathologist [facility] Cholesterol 199 0 - 199 mg/dL 01/13/2019 3:19 PM CDT [facility] Triglyceride 129 <=149 mg/dL 01/13/2019 3:19 PM T [facility] HDL Cholesterol 47 >=40 mg/dL 9 3:19 PM T [facility] LDL, Calculated 126 <130 mg/dL 9 3:19 PM T [facility] Non HDL Chol, Calculated 152 <=159 mg/dL 01/13/2019 3:19 PM T [facility] Cholesterol/HDL Ratio 4.2 01/13/2019 3:19 PM T [facility] Blood Venipuncture / Unknown 01/13/2019 12:35 PM CDT 01/13/2019 12:35 PM CDT Mckenna Briscoe MD LAB_1 Performing Organization Address City/[facility]/ZIP Co de Phone Number [facility] [address] [place] [address], [facility] [phone] * Hepatitis C Virus Leeann with Reflex (01/13/2019 12:35 PM CDT) Pathologist [facility] Hepatitis C Antibody Negative (Non Reactive) Negative (Non Reactive) 01/13/2019 9:54 PM CDT [facility] Comment:Antibodies to HCV no t detected. Does not exclude the possiblity of exposure to HCV. Blood Venipuncture / Unknown 01/13/2019 12:35 PM CDT 01/13/2019 12:35 PM CDT Mckenna Briscoe MD LAB_1 [facility] [address] [place] [address], [facility] from Last 3 Months or Most Recently Relevant to Health Maintenance Advance Directives * Full Code (Latest Code Status on File) Date Activated Date Inactivated Comments 09/22/2019 12:49 PM 09/23/2019 2:04 PM Care Teams Technical Sales Support Specialist Relationship Specialty Start Date End Date Found, No Pcp, [address] [place] [address] PCP - General 04/04/22
--- OUTSIDE RECORDS SUMMARY | 2024-11-24 18:01 | XMS_ITS | Encounter Summary ---
Author Organization [facility] Address [address] [place] [address]. [place] [address] Care Team Providers Care Drapery Inspector Name Role Phone Mckenna Briscoe MD Primary Care Provider [phone] Den Mandujano MD Unavailable [phone] Max Maxwell MD Unavailable Den Mandujano MD Unavailable [phone] Max Maxwell MD Primary Care Provider [phone] Encounter Details Date Type Department Care Team (Late st Contact Info) Description 11/09/2022 [facility] [address] [address] Den Mandujano MD [address] [place] [address] Social History Tobacco Use Types Packs/Day Years Used Date Smoking Tobacco: Every Day Cigarettes Alcohol Use Standard Drinks/Week Comments No 0 (1 standard drink = 0.6 oz pur e alcohol) PHQ-2 Answer Date Recorded PHQ-2 Score 0 03/28/2022 Comments Unknown Sex and Gender Information Value Date Recorded Sex Assigned at Not on file Legal Sex Female 3:05 AM CLOTH ROLL WINDER Gender Identity Not on file Sexual Orientation Not on file COVID-19 Exposure Response Date Recorded In the last 10 days, have yo u been in contact with someone who was confirmed or suspected to have Coronavirus/COVID-19? No / Unsure 11/08/2022 1:51 PM CLOTH ROLL WINDER documented as of this encounter Plan of Treatment Not on file documented as of this encounter Visit Diagnoses Not on filedocumented in this encounter Care Teams Drapery Inspector Relationship Specialty Start Date End Date Mckenna Briscoe MD PCP - General Internal Medicine 04/01/17 04/13/23 Max Maxwell MD [facility] [address] [place] [address] PCP - General Family Medicine 04/14/23 Den Mandujano MD [address] [place] [address] Otolaryngology 01/11/22 Max Maxwell MD [facility] [address] [place] [address] Referring Physician Family Medicine 01/11/22 Den Mandujano MD [address] [place] [address] Assigned Surgical Provider 03/31/22 documented as of this encounter
--- OUTSIDE RECORDS SUMMARY | 2024-11-24 18:01 | XMS_ITS | Clinical Summary ---
Author Organization [facility] Address [address] [place] [address] Care Team Providers Care Foamite Mixer Name Role Phone Den Mandujano MD Unavailable [phone] Max Maxwell MD Unavailable Max Maxwell MD Primary Care Provider [phone] Allergies Active Allergy Reactions Criticality Noted Date [...] on file Legal Sex Female 3:05 AM IMMUNOPATHOLOGIST Gender Identity Not on file Sexual Orientation [...] CANCER SCREENING 10/04/2021 10/04/2020 LIPID 04/02/2022 04/02/2017 COVID-19 Vaccine ( season) 2024 09/13/2022, 09/12/2021, 01/21/2021, Additional history exists INFLUENZA VACCINE (#1) 2024 FALL RISK ASSESSMENT 2024 MEDICARE ANNUAL WELLNESS VISIT 2024 01/13/2019, 05/13/2017 PHQ-2 (once per calendar year) 2024 03/28/2022 MAMMO SCREENING 10/25/2024 10/25/2022, 10/14, 10/24/2021, Additional [...] LAB - BLOOD ORDERABLES Final Result LABORATORY [facility] [address] Lab (1st floor, no room number) [place] [address], [facility] [phone] * (ABNORMAL) Lipid panel reflex to direct LDL (04/02/2017 7:42 AM CDT) Cholesterol 190 <200 mg/dL [facility] Triglycerides 77 <150 mg/dL [facility] HDL Cholesterol 65 >49 mg/dL [facility] LDL Cholesterol Calculated 110(H) <100 mg/dL [facility] Comment: Above desirable: 100-129 mg/dl Borderline High: 130-159 mg/dL High: 160-189 mg/dL Very high: >189 mg/dl Non HDL Cholesterol 125 <130 mg/dL [facility] Blood specimen (specimen) 04/02/2017 7:42 AM CDT 04/02/2017 7:49 AM CDT Elizabeth Byrd MD LAB - BLOOD ORDERABLES Julia robe Result [facility] [address] [place] [address], [facility] [phone] from Last 3 Months or Most Recently Relevant to Health Maintenance Insurance [employer] Advance Directives For more information, please contact: [phone] * Full Code (Latest Code Status on File) Date Activated Date Inactivated Comments 04/02/2017 4:25 PM 04/14/2023 4:44 PM * Full Code Date Activated Date Inactivated Comments 04/01/2017 9:19 PM 04/02/2017 4:25 PM Care Teams Foamite Mixer Relationship Specialty Start Date End Date Max Maxwell MD [facility] [address] [place] [address] PCP - General Family Medicine 04/14/23 Den Mandujano MD [address] [place] [address] Otolaryngology 01/11/22 Max Maxwell MD [facility] [address] [place] [address] Referring Physician Family Medicine 01/11/22
--- OUTSIDE RECORDS SUMMARY | 2024-11-24 18:01 | XMS_ITS | Clinical Summary ---
Author Organization [facility] Address [place], [place] [address] Care Team Providers Care Advertising Designer Name Role Phone Max Maxwell MD Primary Care Provider [phone] Allergies Active Allergy Reactions Criticality Noted Date [...] on file Legal Sex Female 8:14 AM METEOROLOGICAL AIDE Gender Identity Not on file Sexual Orientation Not on file Obstetrics History Last Filed Vital Signs Vital Sign Reading Time Taken Comments Blood Pressure 118/80 12/27/2021 10:54 AM CDT Pulse 71 12/27/2021 10:54 AM CDT Temperature 37 C (98.6 F) 10/23/2016 2:09 PM METEOROLOGICAL AIDE Respiratory Rate 18 12/27/2021 10:5 4 AM CDT Oxygen Saturation 96% 12/27/2021 10: 54 AM CDT Inhaled Oxygen Concentration - - Weight 64.6 kg (142 lb 6.4 oz) 12/27/2021 10:54 AM CDT Pt weighed with shoes on. Height 162 cm (5' 3.78) 10/23/2016 2:0 9 PM METEOROLOGICAL AIDE Body Mass Index 24.61 10/23/2016 2:09 PM METEOROLOGICAL AIDE Plan of Treatment Health Maintenance Due Date Last Done Comments Tdap 1970 HIV for age 15-65 1974 Hepatitis C screening for age 18-79 1977 Tetanus booster 1979 Lipids for age 45-75 2004 Pneumococcal series for age 50+ (1 of 1 - PCV) 2009 Zoster (shingles) series for age 50+ (1 of 2) 2009 Mammogram for age 45-75 09/27/2016 09/27/20 15 (Completed outside of [facility]), 07/26/2011 (Completed outside of [facility]) Depression screening for age 12+ 12/21/2016 12/22/19 16 BMI (ht and wt on same day) for age 18+ 10/23/2017 10/23/2016, 12/22/2015 COVID-19 vaccine series ( season) 2024 09/12/2021, 01/21/2021, 12/31/2020 DEXA/DXA scan for age 65+ 2024 Influenza for age 65+ 2024 Colonoscopy through age 75 09/27/202509/27 (Completed outside of [facility]) Pap test for age 21-65 06/04/2026 06/04/2023, [...] 16 Negative Negative 06/12/2023 11:09 AM CDT [facility] TYPE 18 Negative Negative 06/12/2023 11:09 AM CDT [facility] OTHER HIGH RISK TYPES Negative Negative 06/12/2023 11:09 AM CDT [facility] TRA [facility]OR[facility] Other (Cervical) 06/04/2023 12:00 PM CDT 06/06/2023 5:15 PM CDT Narrative [facility] - 06/12/2023 11:09 AM CDT HPV types 16, 18, 31, 33, 35, 39, 45, 51, 52, 56, 58, 59, 66 and 68 DNA were undetectable or below the pre-set threshold. Methodology: [employer]am 4800 HPV Test us Max Maxwell MD MICROBIOLOGY Final Result [facility] [address] [place] [address], [place] from Last 3 Months or Most Recently Relevant to Health Maintenance Insurance MEDICARE ADVANTAGE MR [place] [id number] Care Teams Advertising Designer Relationship Specialty Start Date End Date Max Maxwell MD PCP - General Family Practice 06/29/22
--- NOTE | 2024-11-24 18:22 | ED.GENADULT ---
HPI - General Adult General Chief complaint: Chest Pain Stated complaint: Left arm pain, jaw and chest pain Time Seen by Provider: 11/24/24 18:00 History of Present Illness HPI narrative: [age] white female presents with some chest tightness in the left upper chest and a little bit of pain in her left shoulder, she noted a little bit a left jaw symptoms as well. She feels she has reflux although she has really not had that the past. She has not had any known coronary disease. She does smoke. She has MS. She has history of mitral valve regurgitation. She reports she had a stress test in the remote past that was unremarkable. She has had this on and off for about 4 days she started taking a proton pump inhibitor that has not really helped much. It comes on and off not initially with exertion she is not short of breath or diaphoretic with this either it has affected her eating or diet. She presents for assessment. No history of COVID type symptoms or influenza or RSV. Related Data Previous Rx's ?Medication ?Instructions ?Recorded paroxetine HCl 30 mg tablet (Paxil) 30 mg PO QDAY #90 tabs 04/10/24 levalbuterol tartrate 45 2 puff inhalation Q4-6H PRN 09/21/24 mcg/actuation aerosol inhaler shortness of breath #15 grams albuterol sulfate 90 mcg/actuation 2 puff inhalation Q4-6H PRN 10/12/24 aerosol inhaler shortness of breath or wheezing #6.7 grams ketorolac 10 mg tablet 10 mg PO Q8H 5 days #15 tabs 10/15/24 ondansetron HCl 4 mg tablet 4 mg PO Q6H #10 tabs 10/15/24 Allergies Allergy/AdvReac Type Severity Reaction Status Date / Time nirmatrelvir (From Paxlovid) Allergy Severe Anaphylaxis Verified 11/24/24 18:28 ritonavir (From Paxlovid) Allergy Severe Anaphylaxis Verified 11/24/24 18:28 Sulfa (Sulfonamide Allergy Unknown Verified 11/24/24 18:28 Antibiotics) prochlorperazine Allergy Irritable Verified 11/24/24 18:28 cephalexin AdvReac Intermediate Verified 11/24/24 18:28 hydrocodone AdvReac Intermediate Nausea and Verified 11/24/24 18:28 Vomiting Review of Systems Status of ROS: Reports: 6 or more systems reviewed and unremarkable except as noted in History and below [facility] Medical History Dermatitis ?L30.9 - Dermatitis, unspecified (ICD-10) Hepatic cyst ?K76.89 - Other specified diseases of liver (ICD-10) Hx of chest pain ?Z87.898 - Personal history of other specified conditions (ICD-10) Psoriasis ?L40.9 - Psoriasis, unspecified (ICD-10) Non-melanoma skin cancer ?C44.90 - Unspecified malignant neoplasm of skin, unspecified (ICD-10) Well adult on routine health check ?Z00.00 - Encounter for general adult medical examination without abnormal findings (ICD-10) Depression with anxiety ?F41.8 - Other specified anxiety disorders (ICD-10) Hypercholesteremia ?E78.00 - Pure hypercholesterolemia, unspecified (ICD-10) Elevated LFTs ?R79.89 - Other specified abnormal findings of blood chemistry (ICD-10) Constipation ?K59.00 - Constipation, unspecified (ICD-10) Hypoxia, sleep related ?G47.34 - Idiopathic sleep related nonobstructive alveolar hypoventilation (ICD-10) Mitral valve regurgitation ?I34.0 - Nonrheumatic mitral (valve) insufficiency (ICD-10) Urinary frequency ?R35.0 - Frequency of micturition (ICD-10) Tobacco dependence ?F17.200 - Nicotine dependence, unspecified, uncomplicated (ICD-10) Bacteremia due to Gram-negative bacteria ?R78.81 - Bacteremia (ICD-10) Multiple sclerosis ?G35 - Multiple sclerosis (ICD-10) Anxiety disorder, unspecified ?F41.9 - Anxiety disorder, unspecified (ICD-10) Surgical History Hx of cholecystectomy ?Z90.49 - Acquired absence of other specified parts of digestive tract (ICD-10) History of sinus surgery ?Z98.890 - Other specified postprocedural states (ICD-10) History of appendectomy ?Z90.49 - Acquired absence of other specified parts of digestive tract (ICD-10) Family History Other Adopted Social History Narrative: Smoker, no significant alcohol history. She is disabled secondary to MS. Highest level of school completed/degree received: high school graduate Smoking Status: Current every day smoker What tobacco products do you use: cigarettes Smoking packs per day: 1 Smoking cigarettes per day: 20.0 Years smoked: 50 Smoking pack-years: 50.00 Smoking quit date/years: <= 15 years ago Do you use any of these nicotine containing products: None Second hand tobacco smoke exposure: No How often do you have a drink containing alcohol: monthly or less Alcohol type: hard liquor How many standard drinks containing alcohol do you have on a typical day: 1 or 2 How often do you have six or more drinks on one occasion: Never AUDIT-C Alcohol total score: 1 Non-prescribed substance use: denies use Caffeine: Yes service: No Exam Narrative: Exam Narrative: Objective patient's vital signs look within normal limits She is alert or x3 no distress not having pain currently HEENT is unremarkable no facial asymmetry neck is supple chest is clear rales are absent Heart rhythm regular 2/6 systolic murmur no palpable chest wall pain Abdomen benign soft nontender Extremities are no edema neurologic nonfocal. Good peripheral perfusion noted , skin warm and dry and periphery. Const: Vital Signs, click to edit/add: Vital Signs - 24 hr 11/24/24 18:09 11/24/24 18:10 11/24/24 18:10 Temperature 98.6 F Pulse Rate 66 69 Pulse Rate [Pulse Oximeter] 70 Respiratory Rate 13 18 Blood Pressure 141/79 H Blood Pressure [Le ft Upper Arm] 141/79 H Pulse Oximetry 99 98 98 Oxygen Delivery Me thod Room Air 11/24/24 18:15 11/24/24 18:30 11/24/24 18:57 Temperature Pulse Rate 70 66 66 Pulse Rate [Pulse Oximeter] Respiratory Rate 19 17 Blood Pressure Blood Pressure [Le ft Upper Arm] Pulse Oximetry 98 99 99 Oxygen Delivery Me thod 11/24/24 19:00 11/24/24 19:24 11/24/24 19:30 Temperature Pulse Rate 65 81 73 Pulse Rate [Pulse Oximeter] Respiratory Rate Blood Pressure Blood Pressure [Le ft Upper Arm] Pulse Oximetry 98 97 98 Oxygen Delivery Me thod 11/24/24 19:45 11/24/24 20:00 11/24/24 20:17 Temperature Pulse Rate 82 89 79 Pulse Rate [Pulse Oximeter] Respiratory Rate 16 Blood Pressure Blood Pressure [Le ft Upper Arm] Pulse Oximetry 100 99 98 Oxygen Delivery Me thod 11/24/24 20:30 11/24/24 20:45 Temperature Pulse Rate 75 Pulse Rate [Pulse Oximeter] Respiratory Rate 12 14 Blood Pressure Blood Pressure [Le ft Upper Arm] Pulse Oximetry 97 Oxygen Delivery Me thod Course Vital Signs Vital signs: Initial Vital Signs Pulse Rate 66 11/24/24 18:09 Respiratory Rate 13 11/24/24 18:09 Blood Pressure 141/79 H 11/24/24 18:09 Blood Pressure Mean 99 11/24/24 18:09 Pulse Oximetry 99 11/24/24 18:09 Vital Signs Pulse Rate 66 11/24/24 18:09 Respiratory Rate 13 11/24/24 18:09 Blood Pressure 141/79 H 11/24/24 18:09 Pulse Oximetry 99 11/24/24 18:09 Temperature 98.6 F 11/24/24 18:10 Pulse Rate 75 11/24/24 20:30 Respiratory Rate 14 11/24/24 20:45 Blood Pressure 141/79 H 11/24/24 18:10 Pulse Oximetry 97 11/24/24 20:30 Oxygen Delivery Method Room Air 11/24/24 18:10 Medications Administered Medications: Discontinued Medications Generic Name Dose Route Start Last Admin Trade Name Freq PRN Reason Stop Dose Admin Aspirin 324 mg 11/24/24 18:18 11/24/24 18:46 Aspirin 81 Mg Tab.Chew PO 11/24/24 18:19 324 mg ONCE ONE Administration Calcium Carbonate 500 mg 11/24/24 20:16 11/24/24 20:44 Calcium Carbonate 500 Mg Chew PO 11/24/24 20:17 500 mg ONCE ONE Administration Sodium Chloride 500 mls @ 500 mls/hr 11/24/24 18:18 11/24/24 19:38 0.9 % Sodium Chloride 500 Ml IV 11/24/24 19:17 Infused .Q1H ONE Infusion Morphine Sulfate 2 mg 11/24/24 18:18 11/24/24 18:49 Morphine 4 Mg/Ml Inj IVP 11/24/24 18:19 2 mg ONCE ONE Administration Pantoprazole Sodium 40 mg 11/24/24 18:18 11/24/24 18:48 Pantoprazole Sodium 40 Mg Inj IVP 11/24/24 18:19 40 mg ONCE ONE Administration Medical Decision Making [facility] Narrative Medical decision making narrative: 64-year-old white female smoker with mitral valve regurgitation and a history of multiple sclerosis presents with some on and off symptoms over the last 4 days of small area of chest discomfort left upper chest as well as some pain in her left shoulder and left neck area. This does not seem to be associated with exertion or activity. She has had no history of known coronary disease although does smoke and is 64. She is nondiabetic she has had no fever chills or COVID or influenza type symptoms. At this time certainly I think rule out acute coronary syndrome be appropriate as well as rule out PE rule out intrathoracic pathology with a CT scan with IV contrast will also do a 90 minute troponin level will get an EKG initially that by my read shows normal sinus rhythm left ventricular hypertrophy no acute ST T wave changes. Will give the patient dose of aspirin, give her IV Protonix. IV 500 mL normal saline. Disposition pending findings above and lab studies. Patient clinically now is asymptomatic. Disposition pending findings. Patient reports she has also had a lot more belching and burping recently and that is why she thinks this is more reflux related. Addendum 7:38 p.m.: Patient's troponin is negative, her EKG shows normal sinus rhythm low voltage LVH no acute ST T wave changes. Her CRP is less than 0.5 . CBC looks unremarkable, D-dimer is negative. ER profile is unremarkable. ProBNP is negative at 73. Viral studies are negative. At this point will repeat her troponin at 8:00 a.m. make sure that is negative. She complained of some upset stomach. She did get IV Protonix. Denies chest pain. If her 2nd troponin is negative may be reasonable to have her on a proton pump inhibitor and for have her follow up with regular physician and consider stress testing at some point. Patient did really get relief from her Tums, she can not tie some Prilosec. I would follow-up on her last point of care troponin as well. Again recommend she talk to her doctor about doing a stress test such as a stress echo. She can return at her problems or concerns. Addendum 9:07 p.m. patient's EKG was repeated shows normal sinus rhythm no changes from prior no acute ST T wave changes. Her troponin is 0. At this point will out to go home, use of Protonix or Prilosec as described maybe take an aspirin daily, and see her regular doctor next few days consider stress testing and other workup seeing how she is doing. Props even EGD would be appropriate if she continues to have some stomach discomfort. Lab Data Labs: Lab Results 11/24/24 11/24/24 Range/Units 18:30 20:00 WBC 7.10 (4.50-11.00) K/uL RBC 4.55 (4.00-5.20) m/uL Hgb 13.5 (12.0-16.0) gm/dL Hct 41.3 (33.0-51.0) % MCV 91 (80-100) fL MCH 30 (26-34) pg MCHC 33 (32-36) gm/dL RDW Coeff of Mauricio 13.0 (11.5-15.5) % Plt Count 207 (140-440) K/uL Neut % (Auto) 61.5 (42.0-72.0) % Lymph % (Auto) 27.9 (20-44) % [place] % (Auto) 7.6 (0.0-11.0) % Eos % (Auto) 2.4 (0.0-7.0) % Baso % (Auto) 0.6 (0.0-3.0) % Neut # (Auto) 4.37 (1.7-7.0) K/uL Lymph # (Auto) 1.98 (0.90-2.90) K/uL [place] # (Auto) 0.50 (0.00-0.90) K/UL Eos # (Auto) 0.17 (0.00-0.50) K/uL Baso # (Auto) 0.04 (0.00-0.30) K/uL Abs Immat Gran (auto) 0.00 (0.00-0.30) K/uL Imm/Tot Granulo (auto) 0.0 % D-Dimer Quant (PE/DVT) < 0.27 (0.00-0.50) ug/ml Sodium 137 (135-149) mmol/L Potassium 3.7 (3.6-5.1) mmol/L Chloride 103 (96-114) mmol/L Carbon Dioxide 26 (20-32) mmol/L Anion Gap 8 (7-15) mEq/L BUN 12 (7-30) mg/dL Creatinine 0.7 (0.5-1.5) mg/dL Estimated Creat Clear 48.43 Estimated GFR 96 ml/min Glucose 108 (60-115) mg/dL Calcium 10.0 (8.4-10.6) mg/dL Total Bilirubin 0.4 (0.1-1.5) mg/dL Direct Bilirubin 0.2 (0.0-0.5) mg/dL AST 21 (12-35) U/L ALT 11 (4-35) U/L Alkaline Phosphatase 65 (40-150) U/L C-Reactive Protein < 0.5 L (0.5-1.0) mg/dL NT-Pro-B Natriuret Pep 73 pg/mL Total Protein 7.0 (6.0-8.3) g/dL Albumin 4.6 (3.3-5.0) g/dL SARS-CoV-2 (PCR) Negative SARS-CoV-2 (Negative) Influenza Type A (PCR) Negative PCR FLU A (Negative) Influenza Type B (PCR) Negative PCR FLU B (Negative) RSV (PCR) Negative PCR RSV (Negative) POC Troponin I 0.00 L (0.01-0.04) ng/ml Discharge Plan Discharge Clinical Impression: Chest pain, Abdominal pain Patient Disposition: Home w/ Parent or Adult Condition: Stable Additional Instructions: Light activity, light diet, would recommend Prilosec 20 mg daily for the next couple of weeks, would recommend follow up with regular doctor next couple of days to discuss possible stress echocardiogram and workup of your chest discomfort. Recommend light activity. Would take an aspirin daily. Recommend stop smoking. Return if problems or concerns. Activity Level: Light activity Discharge Diet: Full Liquid Diet Detail: Advance diet as tolerated Prescriptions: No Action albuterol sulfate 90 mcg/actuation HFA aerosol inhaler 2 puff inhalation Q4-6H PRN (Reason: shortness of breath or wheezing) Qty: 6.7 0RF paroxetine HCl [Paxil] 30 mg tablet 30 mg PO QDAY Qty: 90 3RF levalbuterol tartrate 45 mcg/actuation HFA aerosol inhaler 2 puff inhalation Q4-6H PRN (Reason: shortness of breath) Qty: 15 0RF ondansetron HCl 4 mg tablet 4 mg PO Q6H Qty: 10 0RF ketorolac 10 mg tablet 10 mg PO Q8H 5 Days Qty: 15 0RF Follow Up/Referrals: Max Maxwell MD [Primary Care Provider] - Stand Alone Forms: [facility] Info Instructions
[2024-11-24 18:40] LABS: Basophils Absolute Auto 0.04 K/uL (0.00-0.30); Basophils Percent Auto 0.6 % (0.0-3.0); Eosinophils Absolute Auto 0.17 K/uL (0.00-0.50); Eosinophils Percent Auto 2.4 % (0.0-7.0); Hematocrit 41.3 % (33.0-51.0); Hemoglobin* 13.5 gm/dL (12.0-16.0); Lymphocytes Absolute Auto 1.98 K/uL (0.90-2.90); Lymphocytes Percent Auto 27.9 % (20-44); Mean Corpuscular HGB Conc 33 gm/dL (32-36); Mean Corpuscular Hemoglobin 30 pg (26-34); Mean Corpuscular Volume 91 fL (80-100); Monocytes Percent Auto 7.6 % (0.0-11.0); Neutrophils Absolute Auto 4.37 K/uL (1.7-7.0); Neutrophils Percent Auto 61.5 % (42.0-72.0); Platelet Count* 207 K/uL (140-440); Red Blood Count 4.55 m/uL (4.00-5.20)
--- OUTSIDE RECORDS SUMMARY | 2024-11-24 18:40 | XMS_ITS | Encounter Summary ---
Author Organization [place] Address [address] [place] [address]. [place] [address] Care Team Providers Care Wind Operations Manager Name Role Phone Mckenna Briscoe MD Primary Care Provider [phone] Den Mandujano MD Unavailable [phone] Max Maxwell MD Unavailable Den Mandujano MD Unavailable [phone] Max Maxwell MD Primary Care Provider [phone] Encounter Details Date Type Department Care Team (Late st Contact Info) Description 11/09/2022 [facility] [address] [address] Den Mandujano MD [address] [place] [address] Social History Tobacco Use Types Packs/Day Years Used Date Smoking Tobacco: Every Day Cigarettes Alcohol Use Standard Drinks/Week Comments No 0 (1 standard drink = 0.6 oz pur e alcohol) PHQ-2 Answer Date Recorded PHQ-2 Score 0 03/28/2022 Comments Unknown Sex and Gender Information Value Date Recorded Sex Assigned at Not on file Legal Sex Female 3:05 AM SPLIT LEATHER MOSSER Gender Identity Not on file Sexual Orientation Not on file COVID-19 Exposure Response Date Recorded In the last 10 days, have yo u been in contact with someone who was confirmed or suspected to have Coronavirus/COVID-19? No / Unsure 11/08/2022 1:51 PM SPLIT LEATHER MOSSER documented as of this encounter Plan of Treatment Not on file documented as of this encounter Visit Diagnoses Not on filedocumented in this encounter Care Teams Wind Operations Manager Relationship Specialty Start Date End Date Mckenna Briscoe MD PCP - General Internal Medicine 04/01/17 04/13/23 Max Maxwell MD [facility] [address] [place] [address] PCP - General Family Medicine 04/14/23 Den Mandujano MD [address] [place] [address] Otolaryngology 01/11/22 Max Maxwell MD [facility] [address] [place] [address] Referring Physician Family Medicine 01/11/22 Den Mandujano MD [address] [place] [address] Assigned Surgical Provider 03/31/22 documented as of this encounter
--- OUTSIDE RECORDS SUMMARY | 2024-11-24 18:40 | XMS_ITS | Encounter Summary ---
Author Organization [place] Address [address] [place] [address]. [place] [address] Care Team Providers Care Lining Closer Name Role Phone Mckenna Briscoe MD Primary Care Provider [phone] Den Mandujano MD Unavailable [phone] Max Maxwell MD Unavailable Den Mandujano MD Unavailable [phone] Max Maxwell MD Primary Care Provider [phone] Encounter Details Date Type Department Care Team (Late st Contact Info) Description 11/13/2022 [facility] [address] [address] Den Mandujano MD [address] [place] [address] Social History Tobacco Use Types Packs/Day Years Used Date Smoking Tobacco: Every Day Cigarettes Alcohol Use Standard Drinks/Week Comments No 0 (1 standard drink = 0.6 oz pur e alcohol) PHQ-2 Answer Date Recorded PHQ-2 Score 0 03/28/2022 Comments Unknown Sex and Gender Information Value Date Recorded Sex Assigned at Not on file Legal Sex Female 3:05 AM LIFESTYLE DIRECTOR Gender Identity Not on file Sexual Orientation Not on file COVID-19 Exposure Response Date Recorded In the last 10 days, have yo u been in contact with someone who was confirmed or suspected to have Coronavirus/COVID-19? No / Unsure 11/08/2022 1:51 PM LIFESTYLE DIRECTOR documented as of this encounter Plan of Treatment Not on file documented as of this encounter Visit Diagnoses Not on filedocumented in this encounter Care Teams Lining Closer Relationship Specialty Start Date End Date Mckenna Briscoe MD PCP - General Internal Medicine 04/01/17 04/13/23 Max Maxwell MD [facility] [address] [place] [address] PCP - General Family Medicine 04/14/23 Den Mandujano MD [address] [place] [address] Otolaryngology 01/11/22 Max Maxwell MD [facility] [address] [place] [address] Referring Physician Family Medicine 01/11/22 Den Mandujano MD [address] [place] [id number] Assigned Surgical Provider 03/31/22 documented as of this encounter
--- OUTSIDE RECORDS SUMMARY | 2024-11-24 18:41 | XMS_ITS | Clinical Summary ---
Author Organization [facility] Address [place], [place] [address] Care Team Providers Care Earth Science Technician Name Role Phone Max Maxwell MD Primary Care Provider [phone] Allergies Active Allergy Reactions Criticality Noted Date [...] on file Legal Sex Female 8:14 AM DIRECTOR GENERAL Gender Identity Not on file Sexual Orientation Not on file Obstetrics History Last Filed Vital Signs Vital Sign Reading Time Taken Comments Blood Pressure 118/80 12/27/2021 10:54 AM CDT Pulse 71 12/27/2021 10:54 AM CDT Temperature 37 C (98.6 F) 10/23/2016 2:09 PM DIRECTOR GENERAL Respiratory Rate 18 12/27/2021 10:5 4 AM CDT Oxygen Saturation 96% 12/27/2021 10: 54 AM CDT Inhaled Oxygen Concentration - - Weight 64.6 kg (142 lb 6.4 oz) 12/27/2021 10:54 AM CDT Pt weighed with shoes on. Height 162 cm (5' 3.78) 10/23/2016 2:0 9 PM DIRECTOR GENERAL Body Mass Index 24.61 10/23/2016 2:09 PM DIRECTOR GENERAL Plan of Treatment Health Maintenance Due Date Last Done Comments Tdap 1970 HIV for age 15-65 1974 Hepatitis C screening for age 18-79 1977 Tetanus booster 1979 Lipids for age 45-75 2004 Pneumococcal series for age 50+ (1 of 1 - PCV) 2009 Zoster (shingles) series for age 50+ (1 of 2) 2009 Mammogram for age 45-75 09/27/2016 09/27/20 15 (Completed outside of [facility]), 07/26/2011 (Completed outside of [facility]) Depression screening for age 12+ 12/21/2016 12/22/19 16 BMI (ht and wt on same day) for age 18+ 10/23/2017 10/23/2016, 12/22/2015 COVID-19 vaccine series ( season) 2024 09/12/2021, 01/21/2021, 12/31/2020 DEXA/DXA scan for age 65+ 2024 Influenza for age 65+ 2024 Colonoscopy through age 75 09/27/202509/27 (Completed outside of [facility]) Pap test for age 21-65 06/04/2026 06/04/2023, [...] 16 Negative Negative 06/12/2023 11:09 AM CDT [facility] TYPE 18 Negative Negative 06/12/2023 11:09 AM CDT [facility] OTHER HIGH RISK TYPES Negative Negative 06/12/2023 11:09 AM CDT [facility] Other (Cervical) 06/04/2023 12:00 PM CDT 06/06/2023 5:15 PM CDT Narrative [facility] - 06/12/2023 11:09 AM CDT HPV types 16, 18, 31, 33, 35, 39, 45, 51, 52, 56, 58, 59, 66 and 68 DNA were undetectable or below the pre-set threshold. Methodology: [employer] 4800 HPV Test us Max Maxwell MD MICROBIOLOGY Final Result [facility] [address] [place] [address], [place] from Last 3 Months or Most Recently Relevant to Health Maintenance Insurance MEDICARE ADVANTAGE MR [place]AYLEE [place] [id number] Care Teams Earth Science Technician Relationship Specialty Start Date End Date Max Maxwell MD PCP - General Family Practice 06/29/22
--- OUTSIDE RECORDS SUMMARY | 2024-11-24 18:41 | XMS_ITS | Clinical Summary ---
Author Organization [facility] Address [address] [place] [address] Care Team Providers Care Automotive Repair Technician Name Role Phone Found, No Pcp MD [...] for each transition of care or referral. [facility] Allergies Active Allergy Reactions Criticality Noted Date [...] (07/31/2019): Added automatically from request for surgery [id number] Hypertrophy of nasal turbinates 07/31/2019 Overview (07/31/2019): Added automatically from request for surgery [id number] Nasal septal deviation 07/31/2019 Overview (07/31/2019): Added automatically from request for surgery [id number] Closed fracture of lower end of left [...] disorder 11/21/2004 04/06/20 Overview (06/05/2017): LW Onset: [id number] ; Depression NOS Immunizations Name Administration Dates [...] lb 9.6 oz) 10/04/2020 2:23 P M [facility] Height 164.5 cm (5' 4.75) 07/26/2020 2:29 [...] CONT LUNG SCREENING Routine 10/04/2020 1:58 PM [facility] Tobacco use disorder EXT RSLT - FIT [...] IV Cont Lung Screening (10/04/2020 1:58 PM [facility]) Anatomical Region Laterality Modality Chest, Lung Computed Tomogra phy 10/04/2020 1:51 PM [facility] Impressions 10/04/2020 2:21 PM [facility] COMPARISON: None. TECHNIQUE: Images through the chest [...] 3:29 PM CDT) Case Report Pap Case: [id number] Authorizing Provider: Mckenna Briscoe MD Collected: 01/13/2019 03:29 PM Ordering Location: [facility] Received: 01/13/2019 03:29 PM Medicine First Screen: Alvina Adkins Rescreen: Vianey Gaspar Specimen: Pap Test, Routine, Cervix/Endocervix 01/23/2019 10:39 AM CDT [facility] Pap Specimen Adequacy Satisfactory for evaluation, endocervical/smyth sformation zone component present. 01/23/2019 10:39 AM CDT [facility] Pap Interpretation Negative for intraepithelial lesion or malignancy (NILM). 01/23/2019 10:39 AM CDT [facility] Gross Description The specimen is received in SurePath fixative and properly labeled. 1 Pap-stained SurePath slide is prepared. 01/23/2019 10:39 AM CDT [facility] Pap Disclaimer The Pap test is a screening test designed to aid in the detection of cervical cancer and its precursor lesions. It is not a diagnostic procedure and should not be used as the sole means of detecting cervical cancer. Both false-positive and false-negative reports may occur. 01/23/2019 10:39 AM CDT [facility] Embedded Images 10:39 AM CDT [facility] Other Specimen Type ENTIRE ENDOCERVIX / Unknown 01/13/2019 3:29 PM CDT 01/13/2019 3:29 PM CDT Comment:LMP: No LMP recorded . Patient is postmenopausal. Mckenna Briscoe MD LAB PATHOLOGY Performing Organization Address City/[facility] Co de Phone Number [facility] [address] * Lipid Panel and Direct LDL(If Needed) (01/13/2019 12:35 PM CDT) Pathologist [facility] Cholesterol 199 0 - 199 mg/dL 01/13/2019 3:19 PM CDT [facility] Triglyceride 129 <=149 mg/dL 01/13/2019 3:19 PM T [facility] HDL Cholesterol 47 >=40 mg/dL 9 3:19 PM T [facility] LDL, Calculated 126 <130 mg/dL 9 3:19 PM T [facility] Non HDL Chol, Calculated 152 <=159 mg/dL 01/13/2019 3:19 PM T [facility] Cholesterol/HDL Ratio 4.2 01/13/2019 3:19 PM T [facility] Blood Venipuncture / Unknown 01/13/2019 12:35 PM CDT 01/13/2019 12:35 PM CDT Mckenna Briscoe MD LAB_1 Performing Organization Address City/[facility]/ZIP Co de Phone Number [facility] [address] [place] [address], [facility] [phone] * Hepatitis C Virus Leeann with Reflex (01/13/2019 12:35 PM CDT) Pathologist [facility] Hepatitis C Antibody Negative (Non Reactive) Negative (Non Reactive) 01/13/2019 9:54 PM CDT [facility] Comment:Antibodies to HCV no t detected. Does not exclude the possiblity of exposure to HCV. Blood Venipuncture / Unknown 01/13/2019 12:35 PM CDT 01/13/2019 12:35 PM CDT Mckenna Briscoe MD LAB_1 [facility] [address] [place] [address], [facility] from Last 3 Months or Most Recently Relevant to Health Maintenance Advance Directives * Full Code (Latest Code Status on File) Date Activated Date Inactivated Comments 09/22/2019 12:49 PM 09/23/2019 2:04 PM Care Teams Automotive Repair Technician Relationship Specialty Start Date End Date Found, No Pcp, [address] [place] [address] PCP - General 04/04/22
--- OUTSIDE RECORDS SUMMARY | 2024-11-24 18:41 | XMS_ITS | Clinical Summary ---
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 [phone] * (ABNORMAL) Lipid panel reflex to direct LDL (04/02/2017 7:42 AM CDT) Cholesterol 190 <200 mg/dL [facility] Triglycerides 77 <150 mg/dL [facility] HDL Cholesterol 65 >49 mg/dL [facility] LDL Cholesterol Calculated 110(H) <100 mg/dL [facility] Comment: Above desirable: 100-129 mg/dl Borderline High: 130-159 mg/dL High: 160-189 mg/dL Very high: >189 mg/dl Non HDL Cholesterol 125 <130 mg/dL [facility] Blood specimen (specimen) 04/02/2017 7:42 AM CDT 04/02/2017 7:49 AM CDT Elizabeth Byrd MD LAB - BLOOD ORDERABLES Julia robe Result [facility] [address] [place] [address], [facility] [phone] from Last 3 Months or Most Recently Relevant to Health Maintenance Insurance [employer] Advance Directives For more information, please contact: [phone] * Full Code (Latest Code Status on File) Date Activated Date Inactivated Comments 04/02/2017 4:25 PM 04/14/2023 4:44 PM * Full Code Date Activated Date Inactivated Comments 04/01/2017 9:19 PM 04/02/2017 4:25 PM Care Teams Cardroom Plastic Card Grader Relationship Specialty Start Date End Date Max Maxwell MD [facility] [address] [place] [address] PCP - General Family Medicine 04/14/23 Den Mandujano MD [address] [place] [address] Otolaryngology 01/11/22 Max Maxwell MD [facility] [address], [place] [address] Referring Physician Family Medicine 01/11/22
[2024-11-24 18:42] LABS: Slide Review Reflex No
[2024-11-24] MEDS: ASPIRIN 81 MG TAB.CHEW 324 MG PO (18:46)
[2024-11-24] MEDS: PANTOPRAZOLE SODIUM 40 MG INJ IVP (18:48)
[2024-11-24] MEDS: 0.9 % SODIUM CHLORIDE 500 ML 500 ML IV (18:48)
[2024-11-24] MEDS: MORPHINE 4 MG/ML INJ 2 MG IVP (18:49)
[2024-11-24 18:53] LABS: Albumin* 4.6 g/dL (3.3-5.0); Chloride* 103 mmol/L (96-114)
[2024-11-24 18:54] LABS: Potassium* 3.7 mmol/L (3.6-5.1); Sodium* 137 mmol/L (135-149)
[2024-11-24 18:56] LABS: Creatinine* 0.7 mg/dL (0.5-1.5); Est. Creatinine Clearance* 48.43; Estimated Glomerular Filt Rate 96 ml/min
[2024-11-24 18:57] LABS: Alanine Aminotransferase* 11 U/L (4-35); Alkaline Phosphatase* 65 U/L (40-150); Anion Gap 8 mEq/L (7-15); Aspartate Amino Transferase* 21 U/L (12-35); Bilirubin Direct* 0.2 mg/dL (0.0-0.5); Bilirubin Total* 0.4 mg/dL (0.1-1.5); Blood Urea Nitrogen* 12 mg/dL (7-30); Carbon Dioxide* 26 mmol/L (20-32); Glucose* 108 mg/dL (60-115)
[2024-11-24 19:02] LABS: D Dimer Quantitative* < 0.27 ug/ml (0.00-0.50)
[2024-11-24 19:06] LABS: C Reactive Protein* < 0.5 mg/dL (0.5-1.0); NT Pro B Type NatriureticPept* 73 pg/mL
[2024-11-24 19:17] LABS: PCR FLU A Negative PCR FLU A (Negative); PCR FLU B Negative PCR FLU B (Negative); PCR RSV Negative PCR RSV (Negative); SARS PCR* Negative SARS-CoV-2 (Negative)
[2024-11-24] MEDS: CALCIUM CARBONATE 500 MG CHEW PO (20:44)
== END 2024-11-24 21:28 | disposition home or self-care (01) ==
PROVIDERS: Emergency Provider Family Medicine; PCP Family Medicine
DX: R07.9 Chest pain, unspecified (principal); R10.9 Unspecified abdominal pain
CPT/HCPCS: 36415; 71275; 80048; 80076; 83880; 84484; 85025; 85379; 86140; 87631; 93005; 94761; 99285; A9270; J2270; J2470; J7030; Q9967

== ENCOUNTER 2025-04-21 13:41 | Outpatient (CLI) | payer OTHER, SELFPAY ==
--- NOTE | 2025-04-21 14:00 | CRLHL7_ITS ---
For Patients: As a result of the 21st Century Cures Act, medical imaging exams and procedure reports are released immediately into your electronic medical record. You may view this report before your referring provider. If you have questions, please contact your health care provider. INDICATION: Right throat pain. TECHNIQUE: CT soft tissue of the neck was acquired with 68 cc Isovue 370 IV contrast. COMPARISON: None. FINDINGS: Skull base: Unremarkable. Paranasal sinuses: Mild mucosal thickening in the left maxillary sinus. Oral cavity: Dental hardware associated artifact significantly limits evaluation structures at the level of the teeth, particularly within the majority of the oral cavity. No discretely visualized abnormalities. In the right sublingual space, there is an asymmetrically enhancing focus that measures 1.5 x 0.6 x 0.8 cm (3/40 and 4/15), which may reflect an asymmetrically enlarged sublingual gland. Pharynx/Larynx/Trachea: Epiglottis is normal. Airway is patent. There is mild asymmetric effacement of the right oropharynx at the level of the base of tongue (3/37). No discretely visualized focal mass lesion. Otherwise, unremarkable. Salivary glands: Unremarkable, aside from the right sublingual gland finding noted above. Thyroid gland: Few scattered thyroid nodules, the largest of which is right superior pole and measures approximately 1.5 cm (5/38). Lymph nodes: No lymphadenopathy. Vessels: Unremarkable for age. Bones: Unremarkable for age. Lung apices: Unremarkable. IMPRESSION: 1. There is mild asymmetric effacement of the right oropharynx at the level of the base of tongue. No discretely visualized focal mass lesion. Direct visualization is recommended for further evaluation. 2. There is a 1.5 cm hyperenhancing structure in the right sublingual space, which is favored to reflect an asymmetrically enlarged right sublingual gland. The hyperenhancement is nonspecific, but may reflect sialadenitis. If there are no associated symptoms, this could potentially reflect physiologic asymmetry. 3. Right thyroid lobe superior pole 1.5 cm nodule. A follow-up thyroid ultrasound is recommended for further evaluation. Please note that all CT scans at this facility use dose modulation, iterative reconstruction, and/or weight-based dosing when appropriate to reduce radiation dose to as low as reasonably achievable. Dictated by Homar Robison MD @ 04/22/2025 8:53:31 AM (Electronically Signed)
[2025-04-21 14:08] LABS: Creatinine* 0.8 mg/dL (0.5-1.5); Estimated Glomerular Filt Rate 82 ml/min
== END 2025-04-21 13:42 | disposition home or self-care (01) ==
LOC: CT 13:42
PROVIDERS: PCP Family Medicine; Visit Provider Otolaryngology
DX: R07.0 Pain in throat (principal); E04.1 Nontoxic single thyroid nodule
CPT/HCPCS: 36415; 70491; 82565; Q9967

== ENCOUNTER 2025-05-03 14:48 | Outpatient (CLI) | payer OTHER, SELFPAY ==
--- NOTE | 2025-05-03 15:00 | CRLHL7_ITS ---
For Patients: As a result of the Cures Act, medical imaging exams and procedure reports are released immediately into your electronic medical record. You may view this report before your referring provider. If you have questions, please contact your health care provider. INDICATION: Nodule right lobe thyroid gland seen on neck CT. COMPARISON: CT neck with intravenous contrast April 21, 2025. TECHNIQUE: Ultrasound examination of the thyroid gland. FINDINGS: The right lobe measures 5 x 1.8 x 1.9 cm and the left lobe measures 4.7 x 1.5 x 1.3 cm. The isthmus measures 0.16 cm in thickness. Homogeneous echotexture thyroid gland bilateral. There are 3 nodules identified in the right lobe of the thyroid gland. A 0.8 x 0.4 x 0.8 cm hypoechoic solid TR 4 nodule upper pole right lobe thyroid gland; follow-up thyroid ultrasound in 1 year. A 1.5 x 1 x 1.3 cm heterogeneous hypoechoic nodule upper pole right lobe thyroid gland;TR 4; ultrasound-guided FNA suggested. A 1.3 x 0.7 x 1.2 cm complex predominantly hypoechoic TR 4 nodule lower pole right lobe thyroid gland; ultrasound guided FNA suggested. Impression : 1. A 1.5 x 1 x 1.3 cm TR 4 nodule upper pole right lobe thyroid gland; ultrasound guided FNA suggested. 2. A 1.3 x 0.7 x 1.2 cm TR 4 nodule lower pole right lobe thyroid gland; ultrasound-guided FNA suggested. 3. 0.8 x 0.4 x 0.8 cm hypoechoic TR 4 nodule upper pole right lobe thyroid gland; follow-up thyroid ultrasound in 1 year would suffice. Dictated by Julia Cantu MD @ 05/06/2025 8:19:03 AM (Electronically Signed)
== END 2025-05-03 14:49 | disposition home or self-care (01) ==
LOC: US 14:49
PROVIDERS: PCP Family Medicine; Visit Provider Otolaryngology
DX: E04.1 Nontoxic single thyroid nodule (principal)
CPT/HCPCS: 76536

== ENCOUNTER 2025-05-05 11:36 | Outpatient (CLI) | payer OTHER, SELFPAY | END 2025-05-05 11:37 | disposition home or self-care (01) | LOC: FRMREF 11:37 | PROVIDERS: PCP Family Medicine; Visit Provider Surgery | DX: E04.1 Nontoxic single thyroid nodule (principal); R61 Generalized hyperhidrosis | CPT/HCPCS: 84443 ==

== ENCOUNTER 2025-05-14 08:52 | Day surgery (SDC) | payer OTHER, SELFPAY ==
[2025-05-14] VITALS (16 sets, daily range): BP systolic 99–122; BP diastolic 45–74; PULSE 64–106; RESP 16; TEMP 36.2–37.2; O2SAT 93–98; BMI 22.6
[2025-05-14] MEDS: LACTATED RINGERS 1000 ML 1,000 ML 100 ML IV (09:00)
[2025-05-14] MEDS: MIDAZOLAM HCL 1 MG/ML inj IVP (09:49)
[2025-05-14] MEDS: SODIUM CHLORIDE 0.9 % (FLUSH) 10 ML SYRINGE IVF (10:02)
--- NOTE | 2025-05-14 10:32 | W.PM.ENTPROC ---
Procedure Note Date of procedure: 05/14/25 Procedure: Preop diagnosis discomfort and possible mass right base of tongue Postop diagnosis same with no distinct mass noted Procedure direct laryngoscopy biopsy of tongue base mid right tongue base and lateral right tongue base Under general trach anesthesia patient was prepped and draped usual fashion. The McIvor mouth gag was inserted the tongue retracted forward. The there was poor visualization. Therefore a Dedo laryngoscope was used. First a dental guard was placed on the upper teeth. The Dedo scope was inserted and take and I was able to easily visualize the area of the tongue base that was of concern. It appeared to be possible lingual tonsil tissue this was in the superior right mid tongue base. Several biopsies were taken here and on the lateral right tongue base parallel to this 1st lesion. The remainder of the tongue base hypopharynx larynx were normal to exam with the scope. Biopsies were taken and labeled separately right mid tongue base and right lateral tongue base. Both biopsies were taken just over the curvature of the tongue. This was the area identified in clinic. The patient was explained the operating room taken recovery in satisfactory condition. Blood loss during procedure was less than 10 mL. Surgeon: Riki Ballesteros MD
--- NOTE | 2025-05-14 10:47 | P.ANES_ITS ---
Anesthesia Charges Start Date/Time Anesthesia Start Date: 05/14/25 Anesthesia Start Time: 10:05 Stop Date/Time Anesthesia Stop Date: 05/14/25 Anesthesia Stop Time: 10:47 Coding CPT Codes CPT Codes: ANESTH PROCEDURE ON MOUTH - 36155 ([id number]) P3 - PATIENT W/SEVERE SYS DISEASE, QZ - GUI DEVELOPER SVC W/O MOTOR EXPERT BY
--- NOTE | 2025-05-14 10:47 | W.ANESCHARGE ---
Anesthesia Charges Start Date/Time Anesthesia Start Date: 05/14/25 Anesthesia Start Time: 10:05 Stop Date/Time Anesthesia Stop Date: 05/14/25 Anesthesia Stop Time: 10:47 Coding CPT Codes CPT Codes: ANESTH PROCEDURE ON MOUTH - 49105 ([id number]) P3 - PATIENT W/SEVERE SYS DISEASE, QZ - BASKET WEAVER SVC W/O SEA AIR LAND OFFICER BY
[2025-05-14] MEDS: IBUPROFEN 100 MG/5 ML SUSP 200 MG PO (11:36)
[2025-05-14] MEDS: OXYCODONE 1 MG/ML ORAL SOLN 5 MG PO (11:40)
== END 2025-05-14 12:38 | disposition home or self-care (01) ==
LOC: OR 08:53
PROVIDERS: PCP Family Medicine; Visit Provider Otolaryngology
PROC: (CPT 41105; principal; 2025-05-14 10:15)
PROC: 0CJS8ZZ Inspection of Larynx, Via Natural or Artificial Opening Endoscopic (ICD-10-PCS; CPT 41105; 2025-05-14 10:15)
DX: K14.8 Other diseases of tongue (principal)
CPT/HCPCS: 41105; 00170; 88305; 88342; A9270; J0330; J1100; J2250; J2405; J2704; J3010; J7120

== ENCOUNTER 2025-05-19 10:09 | Outpatient (CLI) | payer OTHER, SELFPAY ==
--- NOTE | 2025-05-19 10:15 | CRLHL7_ITS ---
For Patients: As a result of the Century Cures Act, medical imaging exams and procedure reports are released immediately into your electronic medical record. You may view this report before your referring provider. If you have questions, please contact your health care provider. INDICATION : Two right-sided thyroid nodules. TECHNIQUE : Ultrasound-guided fine needle aspiration of thyroid nodule of each nodule. COMPARISON : 05/03/2025 FINDINGS : PROCEDURE: After the informed consent and time-out, multiple fine needle aspirations were obtained from the thyroid nodule. Fine needle performed. 25 gauge needles were used. Each procedures performed similarly with 6 passes each. Lidocaine was used for local anesthesia. The preliminary cytology was adequate for interpretation. Real-time imaging was used for guidance and needle placement. Post imaging ultrasound demonstrates no immediate complication. IMPRESSION : Successful fine needle aspiration of 2 right-sided thyroid nodules. Dictated by Ezequiel Morris MD @ 05/19/2025 1:54:31 PM (Electronically Signed)
== END 2025-05-19 10:10 | disposition home or self-care (01) ==
LOC: US 10:09
PROVIDERS: PCP Family Medicine; Visit Provider Surgery
DX: E04.1 Nontoxic single thyroid nodule (principal)
CPT/HCPCS: 10005; 76942; 88173

== ENCOUNTER 2025-06-09 12:45 | Outpatient (CLI) | payer OTHER, SELFPAY ==
--- NOTE | 2025-06-09 13:00 | CRLHL7_ITS ---
For Patients: As a result of the Century Cures Act, medical imaging exams and procedure reports are released immediately into your electronic medical record. You may view this report before your referring provider. If you have questions, please contact your health care provider. INDICATION: Right sublingual lesion follow-up. TECHNIQUE: Neck CT was performed after the administration of intravenous contrast. IV contrast: 62 mL Isovue 370. COMPARISON: : Neck CT 04/21/2025, thyroid ultrasound 05/03/2025. FINDINGS: An asymmetric enhancing structure within the right sublingual space is essentially unchanged in size and appearance from prior study measuring up to 1.4 cm. No enlarged or abnormal lymph nodes in the neck. Streak artifact from dental amalgam limits evaluation of the oral cavity, which otherwise appears within normal limits. The nasopharynx, oropharynx, hypopharynx, and laryngeal structures are unremarkable. The parotid and submandibular glands are unremarkable. There are right thyroid nodules that are better evaluated on prior thyroid ultrasound. The great vessels of the neck are unremarkable. The visualized orbits are unremarkable. Mild polypoid mucosal thickening/secretions in the left maxillary sinus. The visualized intracranial structures are grossly within normal limits. No acute or aggressive osseous abnormality. Degenerative changes of the right temporomandibular joint including joint space loss with subchondral sclerosis and remodeling of the mandibular condyle. The visualized lung apices are unremarkable. IMPRESSION: 1. A 1.4 cm enhancing structure in the right sublingual space is essentially unchanged from prior study. Findings are favored to represent an asymmetrically enlarged sublingual gland versus ectopic salivary gland tissue. 2. No cervical lymphadenopathy. Please note that all CT scans at this facility use dose modulation, iterative reconstruction, and/or weight-based dosing when appropriate to reduce radiation dose to as low as reasonably achievable. Dictated by Norris Gallo MD @ 06/09/2025 4:47:27 PM (Electronically Signed)
[2025-06-09 13:14] LABS: Creatinine* 0.9 mg/dL (0.5-1.5); Estimated Glomerular Filt Rate 71 ml/min
== END 2025-06-09 12:46 | disposition home or self-care (01) ==
LOC: CT 12:46
PROVIDERS: PCP Family Medicine; Visit Provider Otolaryngology
DX: K13.70 Unspecified lesions of oral mucosa (principal)
CPT/HCPCS: 36415; 70491; 82565; Q9967

== ENCOUNTER 2025-06-29 11:45 | Outpatient (CLI) | payer OTHER, SELFPAY | END 2025-06-29 11:46 | disposition home or self-care (01) | LOC: NFLDREF 07-05 16:50 | PROVIDERS: PCP Family Medicine; Referring Provider Family Medicine; Visit Provider Family Medicine | DX: Z00.00 Encounter for general adult medical examination without abnormal findings (principal); E04.1 Nontoxic single thyroid nodule; E78.00 Pure hypercholesterolemia, unspecified; F17.200 Nicotine dependence, unspecified, uncomplicated; G35 Multiple sclerosis; N64.4 Mastodynia; R61 Generalized hyperhidrosis | CPT/HCPCS: 80053; 80061; 84144; 84146; 84439 ==

== ENCOUNTER 2025-07-05 07:38 | Day surgery (SDC) | payer OTHER, SELFPAY ==
[2025-07-05] VITALS (23 sets, daily range): BP systolic 90–134; BP diastolic 45–114; PULSE 69–109; RESP 12–18; TEMP 36.1–37.1; O2SAT 93–99; BMI 23.8
[2025-07-05] MEDS: LACTATED RINGERS 1000 ML 1,000 ML 100 ML IV ×2 (07:50→10:07)
--- NOTE | 2025-07-05 08:14 | P.GSOP_ITS ---
Operative Note Date of procedure: 07/05/25 Pre-op diagnosis: Right thyroid nodule, suspicious for oncocytic neoplasm Post-op diagnosis: Same Type of Procedure: Right thyroid lobectomy Indications: The patient is a 65-year-old female who was found incidentally to have 3 right- sided thyroid nodules. Two of the nodules were found to be TI-RADS 4 and met the criteria for fine-needle aspiration. The inferior nodule was benign while the mid nodule was found to be suspicious for an oncocytic neoplasm. 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 Genetic testing was negative. The genomic sequencing was negative for BRAF, RET and MTC mutations but was suspicious for neoplasm with a 50% risk of malignancy. I recommended diagnostic lobectomy and after discussion of risks and benefits, she agreed to proceed. Procedure Description: After discussing the risks and benefits of the procedure, the patient signed informed consent.? The operative site was marked and the patient was brought to the operating room and placed on the operating table in supine position.? Care was taken to pad the patient's pressure points.?? The patient was then intubated by anesthesia using an ET tube compatible with the NIM monitor. A small shoulder roll was placed and the neck was extended. Her arms were tucked. The area was prepped and draped sterilely. I began by marking her incision, two fingerbreadths above the sternal notch, following her skin lines. I 1st created the incision, taking this down to subcutaneous fat. Cautery was then used to divide through the subcutaneous tissue and through the platysma layer. Once this was done, I created suppurative small flaps from the thyroid cartilage superiorly to the sternal notch inferiorly. I then divided precervical fascia i n the midline between the strap muscles. I then carefully, using cautery dissected the strap muscles off of the right thyroid lobe. I took this down posteriorly and superiorly. I then began at the inferior pole of the thyroid as this was easily visible. I carefully dissected out the inferior pole vessels and ligated these with silk ties and clips distally and ties proximally. These were then divided. I then continued my dissection superiorly along the lateral aspect of the thyroid, continuing to divide wispy fibers between the musculature and thyroid capsule. At this point, Dr. Mccoy arrived to assist. She reflected the thyroid medially and continue to assist in retraction exposing the superior pole. I then mobilized the medial aspect of the superior lobe, dissecting out small blood vessels with the right angle and ligating with silk ties and clips prior to dividing. I continued this dissection until I reached the superior pole vessels. Dr. Mccoy then retracted the thyroid inferiorly and I carefully dissected out with a right angle the superior pole vessels, with care to stay right at the superior aspect of the thyroid to avoid injury to the superior laryngeal nerve. The superior pole vessels were ligated with 2-0 silk and clips on the patient's side and 2-0 silk on the specimen side before dividing. Once the superior pole vessels were divided and hemostasis appeared excellent, there were a few additional with the fibers which were divided with cautery, further mobilizing the superior pole. Dr. Mccoy then continued reflecting the thyroid medially and the middle thyroid vein was exposed. I dissected this out with a right angle and again we divided this using silk sutures and clips. We then had completely freed the thyroid inferiorly, superiorly and laterally and continued our dissection behind the thyroid with great care to keep all dissection on the thyroid gland itself and avoid injuring the recurrent laryngeal nerve. What appeared to be inferior parathyroid was dissected free from the thyroid gland and preserved. Carefully I dissected through the tissue as Dr. Mccoy reflected the thyroid anteriorly medially, dissecting out small vessels and dividing them with ties or clips. The recurrent laryngeal nerve was then visualized. This was in its usual location. This was then confirmed by stimulation with the Nim probe. Now that the nerve was identified, we continued dissecting the thyroid from the trachea. Great care was taken at the ligament of Newman where the nerve was immediately adjacent not to use cautery or to pull on the tissue around the nerve. Bleeding here was prevented and controlled with clips and ties. The thyroid was then removed from the trachea using cautery. Once the isthmus was encountered, this was divided with LigaSure. This was hemostatic. The thyroid was then marked for orientation with a single stitch superior and a double stitch at the isthmus. This was sent to pathology. The thyroid bed was then examined. Hemostasis at this point appeared excellent. The recurrent laryngeal nerve was identified and stimulated and had a strong and similar signal to we first identified it. A Valsalva maneuver was performed x2 and no bleeding was noted either time. This point Dr. Mccoy turned the remainder of the case over to me. Gustabo was placed in the thyroid bed. I used a 4-0 Prolene to tag the isthmus, taking this up through the strap muscles to help identify the left lobe of the thyroid if reoperation is necessary. I then closed the strap muscles with a running 3-0 Vicryl suture. I tagged the 4-0 Prolene with a small clip in the midline above the strap muscles. I then closed the platysma layer with interrupted 3-0 Vicryl suture. The dermis was closed with 3-0 Vicryl interrupted sutures followed by a 4-0 Monocryl running subcuticular suture. Sterile dressings were then applied. ? The patient was then woken and transported to the recovery area in stable condition. ? The patient tolerated the procedure well. Findings: 1. Right thyroid lobe small palpable nodules 2. Recurrent laryngeal nerve identified with strong stimulation at the end of the case Anesthesia: GETA Surgeon: Fabby Natarajan MD Co-Surgeon: Mora Mccoy MD Estimated blood loss (mL): 10 Specimen: Other Additional Specimen Information: Right thyroid lobe, single stitch superior, double lateral Condition: stable Disposition: PACU
--- NOTE | 2025-07-05 08:15 | W.PM.H&PU ---
History & Physical Update History & Physical Update H&P Reviewed and patient assessed: The following changes are noted below H&P Updates: Since I last saw Weston, she underwent genetic testing. She was found to be negative for the RET oncogene mutation.
[2025-07-05] MEDS: SODIUM CHLORIDE 0.9 % (FLUSH) 10 ML SYRINGE IVF (08:22)
[2025-07-05] MEDS: CLINDAMYCIN 900 MG/50 ML-D5W IVPB (09:00)
--- NOTE | 2025-07-05 11:06 | PM.GSPRC ---
Operative Note Date of procedure: 07/05/25 Pre-op diagnosis: 1. 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 Post-op diagnosis: Same Type of Procedure: 1. Right thyroid lobectomy. Indications: 65-year-old female was seen in clinic by 1 my partners. 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 A right lobectomy was recommended for diagnostic purposes. Please see Dr. Natarajan's note for more detail. Procedure Description: I acted as a co-surgeon throughout this procedure and assisted Dr. Natarajan was right thyroid lobectomy. The second surgeon was required due to the delicate nature of the procedure and the high risk of bleeding and recurrent laryngeal nerve injury. When I entered the operating room, the patient was prepped and draped and already intubated. The neck incision was already made and skin flaps were developed and strap muscles were retracted laterally exposing the right thyroid lobe. With the adhesions of the right thyroid lobe to the lateral neck were divided with cautery. The inferior lobe vasculature was circumferentially dissected. This was tied with silk ties and clipped on the patient's side and divided between the ties. During this part of the dissection I assisted with retraction, mobilization, and visualization. We then proceeded with mobilizing the superior lobe blood vessels. The superior lobe artery and vein were circumferentially dissected bluntly. These were sequentially divided after tying the vasculature with proximal and distal ties and also clipping the patient's side of the vessel with vascular clips. Hemostasis was achieved with cautery. During this part of the dissection I assisted with visualization and retraction of the thyroid lobe. The middle thyroid vein was then identified and circumferentially dissected. This was controlled with silk ties proximally and distally. The patient's side was also clipped with vascular clips. When the thyroid lobe was medially rotated, we were able to visually identify the right recurrent laryngeal nerve. This was also confirmed with the Nim probe. Care was taken not to injure the nerve. The medial thyroid lobe was then further mobilized off the trachea with careful dissection with cautery. Hemostasis was achieved with ties and clips. During this part of the dissection I assisted with visualization and retraction of the thyroid lobe. When the right thyroid lobe was mobile and isthmus was identified, the isthmus was then divided with LigaSure device. The isthmus was taken with the right thyroid lobe. The right thyroid lobe was marked with a single stitch superior and double at the isthmus and sent to pathology. Valsalva maneuver was performed and no bleeding was identified in the surgical field. At this time Dr. Natarajan proceeded with incisional closure, and I exited the room. All counts were correct at the end of the case. Findings: Right thyroid lobe was not firmly attached to the adjacent tissues or the trachea. Anesthesia: GETA Surgeon: Fabby Natarajan MD Co-Surgeon: Miguel Mccoy MD Estimated blood loss (mL): 10 Additional Specimen Information: 1. Right thyroid lobe. Condition: stable Disposition: PACU
--- NOTE | 2025-07-05 11:28 | P.ANES_ITS ---
Anesthesia Charges Start Date/Time Anesthesia Start Date: 07/05/25 Anesthesia Start Time: 08:49 Stop Date/Time Anesthesia Stop Date: 07/05/25 Anesthesia Stop Time: 11:29 Coding CPT Codes CPT Codes: ANESTH NECK ORGAN 1YR/> - 06435 ([id number]) P2 - PATIENT W/MILD SYST DISEASE, QK - ADMITTED ATTORNEYS 2-4 CNCRNT ANES PROC, QX - ICT HELP DESK TECHNICIAN SVC W/ MD MED DIRECTION
--- NOTE | 2025-07-05 11:28 | W.ANESCHARGE ---
Anesthesia Charges Start Date/Time Anesthesia Start Date: 07/05/25 Anesthesia Start Time: 08:49 Stop Date/Time Anesthesia Stop Date: 07/05/25 Anesthesia Stop Time: 11:29 Coding CPT Codes CPT Codes: ANESTH NECK ORGAN 1YR/> - 52628 ([id number]) P2 - PATIENT W/MILD SYST DISEASE, QK - MOUNTING MACHINE OPERATOR 2-4 CNCRNT ANES PROC, QX - ARCH SUPPORT TECHNICIAN SVC W/ MD MED DIRECTION
--- NOTE | 2025-07-05 11:32 | P.ANES_ITS ---
Anesthesia Charges Start Date/Time Anesthesia Start Date: 07/05/25 Anesthesia Start Time: 08:49 Stop Date/Time Anesthesia Stop Date: 07/05/25 Anesthesia Stop Time: 11:29 Coding CPT Codes CPT Codes: ANESTH NECK ORGAN 1YR/> - 40861 ([id number]) QK - PIECE WORK INSPECTOR 2-4 CNCRNT ANES PROC, QX - PAINT ROLLER COVERMAKER SVC W/ MD MED DIRECTION, P2 - PATIENT W/MILD SYST DISEASE
--- NOTE | 2025-07-05 11:32 | W.ANESCHARGE ---
Anesthesia Charges Start Date/Time Anesthesia Start Date: 07/05/25 Anesthesia Start Time: 08:49 Stop Date/Time Anesthesia Stop Date: 07/05/25 Anesthesia Stop Time: 11:29 Coding CPT Codes CPT Codes: ANESTH NECK ORGAN 1YR/> - 89684 ([id number]) QK - HEADER SET UP OPERATOR 2-4 CNCRNT ANES PROC, QX - V BELT COVERER SVC W/ MD MED DIRECTION, P2 - PATIENT W/MILD SYST DISEASE
--- NOTE | 2025-07-05 12:08 | SUR.PHASEI ---
patient met discharge criteria per anesthesia
[2025-07-05] MEDS: ONDANSETRON 2 MG/ML inj IVP ×2 (12:25→15:39)
[2025-07-05] MEDS: CALCIUM CARBONATE 500 MG CHEW PO ×3 (13:13→22:36)
[2025-07-05] MEDS: LACTATED RINGERS 1000 ML 1,000 ML 125 ML IV (14:11)
[2025-07-05] MEDS: HYDROCODONE-ACETAMIN 5-325 MG 1 TAB PO ×2 (15:40→20:02)
[2025-07-06 03:20] VITALS: BP 112/63; PULSE 81; RESP 16; TEMP 36.8; O2SAT 94
[2025-07-06] MEDS: CARBOXYMETHYLCELLULOSE (REFRESH PLUS) TEARS 1 DROP EYE-BOTH ×2 (03:25→03:27)
[2025-07-06] MEDS: HYDROCODONE-ACETAMIN 5-325 MG 1 TAB PO ×2 (03:26→07:43)
[2025-07-06] MEDS: ACETAMINOPHEN 325 MG TABLET 650 MG PO (03:26)
--- NOTE | 2025-07-06 05:24 | PC.NURSE ---
end of shift: Pt is AOx4. VSS. Afebrile. Dressing on lower R neck C/D/I. Pt reports RIGGINS pain; meds given- see EMAR. Pt. education done on pain control meds. SCDs placed. Pt. SBA.
[2025-07-06] MEDS: OMEPRAZOLE 20 MG CAPSULE DR 40 MG PO (06:43)
[2025-07-06 07:00] VITALS: RESP 16; O2SAT 97
--- NOTE | 2025-07-06 07:02 | PC.NURSE ---
Pt noted to have negative Chvostek sign when assessed bilaterally.
[2025-07-06 07:30] VITALS: BP 107/56; PULSE 79; RESP 16; TEMP 36.8; O2SAT 97
--- NOTE | 2025-07-06 09:14 | PM.DS1 ---
DS: Providers Provider Date Seen: 07/06/25 Primary care physician: Max Maxwell MD Attending Physician on discharge: Fabby Natarajan MD DS: Diagnosis Discharge Diagnosis (1) H/O partial thyroidectomy: Status: Acute Problem details: Right hemithyroidectomy 07/05/25 for suspicious nodule DS: Summary Hospital Course Hospital Course: Weston arzate a 65-year-old female was admitted overnight after right hemithyroidectomy. She did well overnight except that she felt the pain medication was too strong so she plans on taking 1 pill going forward. She was deemed safe for discharge home on postop day 1. Time Spent with Patient Time attestation: Total time spent providing and/or coordinating discharge services: Exam Narrative: Exam Narrative: General: No acute distress CV: Regular rate and rhythm HEENT: Voice appears to be at baseline. Neck is soft. Dressing is clean Respiratory: Breathing nonlabored on room air Const: Vital Signs, click to edit/add: Vital Signs - 24 hr 07/05/25 11:24 07/05/25 11:30 07/05/25 11:35 Temperature 98.2 F 98.2 F 98.2 F Pulse Rate 109 H 101 H 98 Pulse Rate [Pulse Oximeter] Respiratory Rate 14 13 12 Blood Pressure 118/64 115/66 92/45 L Blood Pressure [Ri ght Arm] Pulse Oximetry 96 95 95 Oxygen Delivery Me thod Nasal Cannula Nasal Cannula Nasal Cannula Oxygen Flow Rate 2 2 2 07/05/25 11:40 07/05/25 11:45 07/05/25 11:50 Temperature 98.2 F 98.2 F 98.2 F Pulse Rate 95 96 96 Pulse Rate [Pulse Oximeter] Respiratory Rate 12 12 12 Blood Pressure 99/53 L 103/55 L 104/53 L Blood Pressure [Ri ght Arm] Pulse Oximetry 98 93 93 Oxygen Delivery Me thod Nasal Cannula Room Air Room Air Oxygen Flow Rate 2 07/05/25 11:55 07/05/25 12:05 07/05/25 12:20 Temperature 98.8 F 98.1 F 98.2 F Pulse Rate 93 Pulse Rate [Pulse Oximeter] 88 85 Respiratory Rate 12 14 16 Blood Pressure 106/57 L Blood Pressure [Ri ght Arm] 101/52 L 98/59 L Pulse Oximetry 94 94 94 Oxygen Delivery Me thod Room Air Room Air Oxygen Flow Rate 07/05/25 12:35 07/05/25 12:50 07/05/25 13:05 Temperature 98.1 F Pulse Rate Pulse Rate [Pulse Oximeter] 80 82 83 Respiratory Rate 16 18 16 Blood Pressure Blood Pressure [Ri ght Arm] 104/49 L 100/51 L 93/50 L Pulse Oximetry 96 97 96 Oxygen Delivery Me thod Room Air Room Air Room Air Oxygen Flow Rate 07/05/25 13:35 07/05/25 14:05 07/05/25 15:00 Temperature 98.5 F 98 F Pulse Rate Pulse Rate [Pulse Oximeter] 82 84 Respiratory Rate 16 18 16 Blood Pressure Blood Pressure [Ri ght Arm] 102/57 L 120/58 L Pulse Oximetry 95 97 99 Oxygen Delivery Me thod Room Air Room Air Room Air Oxygen Flow Rate 07/05/25 15:05 07/05/25 16:05 07/05/25 17:05 Temperature 98.8 F 98.8 F 97.2 F L Pulse Rate Pulse Rate [Pulse Oximeter] 77 79 93 Respiratory Rate 16 16 17 Blood Pressure Blood Pressure [Ri ght Arm] 102/56 L 109/63 90/53 L Pulse Oximetry 96 97 98 Oxygen Delivery Me thod Room Air Room Air Room Air Oxygen Flow Rate 07/05/25 18:05 07/05/25 20:04 07/05/25 22:23 Temperature 96.9 F L 98.5 F 98.3 F Pulse Rate Pulse Rate [Pulse Oximeter] 78 85 76 Respiratory Rate 16 16 16 Blood Pressure Blood Pressure [Ri ght Arm] 100/54 L 101/55 L 106/57 L Pulse Oximetry 99 93 94 Oxygen Delivery Me thod Room Air Room Air Room Air Oxygen Flow Rate 07/05/25 22:26 07/06/25 03:20 07/06/25 07:00 Temperature 98.3 F Pulse Rate Pulse Rate [Pulse Oximeter] 81 Respiratory Rate 16 16 16 Blood Pressure Blood Pressure [Ri ght Arm] 112/63 Pulse Oximetry 94 94 97 Oxygen Delivery Me thod Room Air Room Air Room Air Oxygen Flow Rate 07/06/25 07:30 Temperature 98.3 F Pulse Rate Pulse Rate [Pulse Oximeter] 79 Respiratory Rate 16 Blood Pressure Blood Pressure [Ri ght Arm] 107/56 L Pulse Oximetry 97 Oxygen Delivery Me thod Room Air Oxygen Flow Rate DS: Data Data Completed and Pending Completed studies during hospitalization: Procedures Plain Radiography of Hepatobiliary System, All using Other Contrast (06/28/22) Resection of Gallbladder, Percutaneous Endoscopic Approach (06/28/22) Discharge Plan Discharge Disposition: Home w/ Parent or Adult Discharging Surgeon: Fabby Natarajan Follow-Up Appointment: 2 weeks [facility] Prescriptions: New hydrocodone-acetaminophen 5-325 mg Tablet 1 tab PO Q6H PRN (Reason: Pain) Qty: 10 0RF Continued triamcinolone acetonide 0.1 % lotion See Rx Instructions .ROUTE .COMPLEX Qty: 60 0RF Rx Instructions: 1-2 drops to ear at bedtime for 7 days; pantoprazole [Protonix] 40 mg tablet,delayed release (DR/EC) 40 mg PO QDAY Qty: 90 1RF paroxetine HCl [Paxil] 30 mg tablet 30 mg PO QDAY Qty: 90 1RF colesevelam 625 mg tablet 625 mg PO QAM Qty: 90 1RF alprazolam 0.25 mg tablet 0.25 mg PO BID Qty: 20 3RF oxycodone 5 mg/5 mL solution 3 mg PO Q4-6H PRN (Reason: pain) Qty: 120 0RF ondansetron 4 mg tablet,disintegrating 4 mg PO Q8H Qty: 10 0RF Activity Level: Activity as Tolerated and No strenuous activity Activity Detail: No lifting more than 20 lb for 2 weeks Discharge Diet: Regular Patient Instructions: Hydrocodone/Acetaminophen (By mouth), Partial Thyroidectomy (DC) Additional Instructions: Wound care: Your sutures are under the skin and will dissolve over time. Remove outer dressing tomorrow. Leave steri strips (white bandage) over incisions until they fall off (or remove after 7 days). OK to shower tomorrow but avoid bathing, soaking or swimming for 2 weeks. Pat the incisions dry. No need to wash or scrub the area. Apply ice to the area as needed for swelling. It is also OK to use a heating pad if this provides more comfort to you. Pain control: You were prescribed a pain medication. This medication contains acetaminophen (Tylenol). If you are taking your prescribed pain pills 4 times daily, do not take additional acetaminophen. As your pain improves, you can try taking acetaminophen instead of the prescribed pain pill. It is ok to take Ibuprofen or Naproxen (per directions on packaging). This medication helps with inflammation and swelling. Take an wppk-llo-vylfolk stool softener while you are taking prescribed pain medications to help alleviate constipation. I recommend Senna and/or Colace. Take as directed on package. If you have not had a bowel movement in 3 days, try taking Miralax as directed on the package. All of these are available over the counter. Follow-up Follow up with Dr. Natarajan in 2-3 weeks Please call if you are experiencing severe pain, nausea, vomiting, shortness of breath, fever or have not had bowel movement in 4 days after surgery. Follow-up: Max Maxwell MD [Primary Care Provider, Family Practice] Fabby Natarajan MD [Staff Physician, General Surgery] - 07/20/25 9:30 am Referral Note: [facility] for hospital follow-up. Discharge Orders: Discharge Order (Routine); Ordered 07/06/25 Ordered By: Fabby Natarajan
--- NOTE | 2025-07-06 11:48 | PC.NURSE ---
Discharge: Patient pleasant and cooperative, A&O. VSS, afebrile. SpO2 maintained above 90% on RA. Patient reports pain in her throat this shift, managed with PRN medication, see MAR. Dressing C/D/I. IV removed with tip intact. Discharge instructions provided, all questions answered. D/C to home.
--- NOTE | 2025-07-07 19:13 | PC.NURSE ---
Pt called to inquire about removing outer dressing. [employer] Services Associate spoke with Pt about ways to remove. Pt was able to remove outer dressing leaving steri strips intact.
== END 2025-07-06 11:40 | disposition home or self-care (01) ==
LOC: OR 07:40 → MEDSURG 07:41
PROVIDERS: PCP Family Medicine; Visit Provider Surgery
PROC: (CPT 60220; principal; 2025-07-05 09:00)
DX: E04.1 Nontoxic single thyroid nodule (principal)
CPT/HCPCS: 60220; 00320; 76998; 88307; 88341; 88342; A9270; J0330; J0736; J1100; J1171; J2371; J2405; J2704; J3010; J3475; J3490; J7120; S4990

== ENCOUNTER 2025-07-13 09:10 | Outpatient (CLI) | payer OTHER, SELFPAY | END 2025-07-13 09:11 | disposition home or self-care (01) | LOC: NFLDREF 07-18 07:45 | PROVIDERS: PCP Family Medicine; Referring Provider Family Medicine; Visit Provider Family Medicine | DX: R61 Generalized hyperhidrosis (principal) | CPT/HCPCS: 82533; 82671 ==

== ENCOUNTER 2025-08-03 13:03 | Outpatient (CLI) | payer OTHER, SELFPAY | END 2025-08-03 13:04 | disposition home or self-care (01) | LOC: NFLDREF 08-11 03:14 | PROVIDERS: PCP Family Medicine; Referring Provider Family Medicine; Visit Provider Surgery | DX: E89.0 Postprocedural hypothyroidism (principal); E06.3 Autoimmune thyroiditis | CPT/HCPCS: 84443; 86376 ==

== ENCOUNTER 2025-08-30 14:56 | Outpatient (CLI) | payer OTHER, SELFPAY | END 2025-08-30 14:57 | disposition home or self-care (01) | PROVIDERS: PCP Family Medicine; Visit Provider Family Medicine | DX: R79.89 Other specified abnormal findings of blood chemistry (principal) | CPT/HCPCS: 82746; 83090; 83921; 84443 ==

== ENCOUNTER 2025-09-08 13:45 | Outpatient (CLI) | payer OTHER, SELFPAY ==
--- NOTE | 2025-09-08 15:00 | CRLHL7_ITS ---
For Patients: As a result of the Century Cures Act, medical imaging exams and procedure reports are released immediately into your electronic medical record. You may view this report before your referring provider. If you have questions, please contact your health care provider. DXA BONE MINERAL DENSITY STUDY Current height (in): 64.0 Weight (lb): 135.0 Menopause age: 46 Ethnicity: White 1. Have you had a previous hip or vertebral fracture? No. 2. Have you had any fractures during your adult life which did not result from significant trauma (e.g., auto accident)? No. 3. Did either of your parents have a hip fracture? No. 4. Do you smoke? Yes. 5. Have you ever taken Glucocorticoids? Yes. 6. Do you have rheumatoid arthritis? No. 7. Do you have secondary osteoporosis? No. 8. Do you drink 3 or more alcoholic drinks per day? No. 9. Are you being treated for osteoporosis? No. 10. Have you ever taken any of the following medications: Actonel, Evista, Fosamax, Miacalcin, Reclast, Boniva, Forteo, HRT (i.e. estrogen/hormone therapy), Protelos, Prolia, Vitamin D, Calcium, other ??? please specify. ANSWER: Yes, Vitamin D. 11. Do you have any of the following medical conditions: Anorexia or bulimia, asthma or emphysema, end stage renal disease, hyperparathyroidism, any seizure disorders, cancer, inflammatory bowel diseases, hysterectomy, other ??? please specify. ANSWER: Yes, MS. 12. What was your maximum height (inches)? 64. 13. Do you perform weight bearing exercise regularly? No. 14. Do you regularly consume dairy products? Yes. 15. Do you drink caffeinated beverages? Yes. 16. At what age did your period start? 15. 17. Are you premenopausal? No. 18. How many full term pregnancies have you had? 1. 19. Have you ever missed your period for more than 6 months in a row (not including or menopause)? No. TECHNIQUE: Bone mineral density study was performed using the [employer] FINDINGS: The results of the study expressed as bone mineral density (BMD) are as follows: Lumbar spine L1 to L4: BMD: 0.834 g/cm2. T-score: -1.9. Z-score: -0.1. Neck Left: BMD: 0.500 g/cm2. T-score: -3.1. Z-score: -1.6. Total Left: BMD: 0.679 g/cm2. T-score: -2.2. Z-score: -0.9. IMPRESSION: Osteoporosis. Rachna Mead M.D. Body/Diagnostic Radiologist [email or web address] GERTRUDIS/beatrice / DW/Dictated by: Rachna Mead MD @ 09/11/2025 3:42:00 AM (Electronically Signed)
== END 2025-09-08 13:46 | disposition home or self-care (01) ==
LOC: RAD 13:46
PROVIDERS: PCP Family Medicine; Visit Provider Family Medicine
DX: I34.0 Nonrheumatic mitral (valve) insufficiency (principal); Z78.0 Asymptomatic menopausal state; M81.0 Age-related osteoporosis without current pathological fracture; Z01.818 Encounter for other preprocedural examination
CPT/HCPCS: 77080; 93306

== ENCOUNTER 2025-10-12 13:39 | Outpatient (CLI) | payer OTHER, SELFPAY ==
--- NOTE | 2025-10-12 14:00 | CRLHL7_ITS ---
For Patients: As a result of the Century Cures Act, medical imaging exams and procedure reports are released immediately into your electronic medical record. You may view this report before your referring provider. If you have questions, please contact your health care provider. Indication: Sublingual lesion. Technique: Contrast-enhanced CT of the neck with multiplanar reconstruction. 69 cc Isovue 370 iodinated intravenous contrast was utilized. Comparison: CT soft tissue neck dated 06/09/2025. Findings: Stable 1.4 cm ovoid enhancing structure within the right sublingual space (series 6, image 41). No suspicious mucosal based mass or enhancement. Normal parotid and submandibular glands. Interval right hemithyroidectomy. No suspicious enhancement about the surgical site. Clear lung apices. No aggressive osseous lesion. Unremarkable orbits and imaged intracranial structures. Impression: 1. Stable 1.4 cm enhancing structure within the right sublingual space, favored to represent asymmetric enlargement of the sublingual gland. 2. No suspicious mucosal based mass or pathologically enlarged cervical lymph nodes. 3. Interval right hemithyroidectomy. No suspicious enhancement about the surgical bed. Please note that all CT scans at this facility use dose modulation, iterative reconstruction, and/or weight-based dosing when appropriate to reduce radiation dose to as low as reasonably achievable. Dictated by Norris Ho MD @ 10/14/2025 5:41:40 AM (Electronically Signed)
[2025-10-12 14:11] LABS: Creatinine* 0.9 mg/dL (0.5-1.5); Estimated Glomerular Filt Rate 71 ml/min
== END 2025-10-12 13:40 | disposition home or self-care (01) ==
LOC: CT 13:40
PROVIDERS: PCP Family Medicine; Visit Provider Otolaryngology
DX: K14.8 Other diseases of tongue (principal)
CPT/HCPCS: 36415; 70491; 82565; Q9967